=== PATIENT | female | born 1955 | race Caucasian/White ===

== ENCOUNTER → 2018-09-23 12:08 | Outpatient (CLI) | payer OTHER, SELFPAY ==
[2018-08-29 09:18] VITALS: BMI 20.3
--- NOTE | 2018-09-23 12:37 | EKG12_ITS ---
Test Reason : PREOP Blood Pressure : / mmHG Vent. Rate : 064 BPM Atrial Rate : 064 BPM P-R Int : 114 ms QRS Dur : 088 ms QT Int : 406 ms P-R-T Axes : 028 024 026 degrees QTc Int : 418 ms Normal sinus rhythm Normal ECG Confirmed by RALPH FOSTER MD ([id number]), school photograph editor LORE MATTSON ([id number]) on 09/24/2018 1:46:23 PM Referred By: Colton Ashley Confirmed By:RALPH FOSTER MD
[2018-09-23 13:12] LABS: Hematocrit 39.2 % (37-47); Hemoglobin 12.7 g/dl (12.0-15.0); Mean Corp Hgb Conc 32.4 g/gl (32-36); Mean Corpuscular Hgb 31.1 pg (27.0-32.0); Mean Corpuscular Volume 95.8 fL (81-99); Mean Platelet Vol. 11.8 fl (6.2-12.0); Platelet Count 219 K/mm3 (150-450); RBC Distribution Width CV 12.8 % (11.6-14.6); RBC Distribution Width SD 44.3 fl (35.1-43.9); Red Blood Count 4.09 M/mm3 (4.2-5.4); White Blood Count 5.9 K/mm3 (4.4-11.0)
[2018-09-23 13:13] LABS: Scan Indicated on CBC? Y/N NO
[2018-09-23 13:30] LABS: Anion Gap 4 (5-15); BUN 13 mg/dL (7-18); BUN/Creat Ratio 13.2 RATIO (10-20); Calcium,Total 9.4 mg/dL (8.5-10.1); Chloride 104 mmol/L (98-107); Creatinine, Serum 0.98 mg/dL (0.55-1.02); EST Glomerular Filtration Rate 61 mL/min (>60); Est Glom Filt Rate - Afr Amer 73 mL/min (>60); Glucose 93 mg/dL (74-106); Sodium Level 137 mmol/L (136-145)
== END ==
PROVIDERS: Family Provider Internal Medicine; PCP Internal Medicine; Referring Provider Orthopaedic Surgery; Visit Provider Orthopaedic Surgery
DX: Z01.810 Encounter for preprocedural cardiovascular examination (principal); Z01.818 Encounter for other preprocedural examination
CPT/HCPCS: 36415; 80048; 85027; 93005

== ENCOUNTER 2021-10-21 18:50 | Emergency (ER) | payer MEDICARE, OTHER, SELFPAY ==
[2021-10-21 18:51] VITALS: BP 131/100; PULSE 96; RESP 15; TEMP 37; O2SAT 98; BMI 20.5
--- NOTE | 2021-10-21 20:10 | EDS_ITS ---
HPI History of Present Illness Chief Complaint: Laceration Detail of Chief Complaint: Laceration palmar aspect right long finger. Informant: patient Occured/Mechanism Mechanism/Context: Yes injury Onset/Context/Timing Onset: Today and Hours Context: Sudden Onset Timing: Continuous Current Severity: Mild Maximum Severity: Mild Associated Symptoms Associated Symptoms: Negative for Parasthesia, Weakness and Loss of Funtion Narrative Narrative: 66-year-old female [id number]. Was putting stuff away and pulling stuff down from the shelf when a blade from a fast food services manager fell and cut her right hand palmar aspect at the MCP of the right long finger. This occurred within the last hour. She is unsure of her last tetanus and will be updated. Denies any other injuries. Tetanus Immunization: Unknown Prior similar symptoms: No Recent Illness/Hospitalization: No PFSH PFSH Medical History Knee pain Shoulder pain Allergy/AdvReac Type Severity Reaction Status Date / Time ibuprofen AdvReac Other Verified 10/21/21 18:50 SURGICAL TAPE Allergy Other Uncoded 10/21/21 18:50 Family History Other CVA (cerebral vascular accident) Cancer Surgical History History of hernia repair History of kidney donation History of tonsillectomy and adenoidectomy Social History Smoking Status: Never smoker alcohol intake: current ROS ROS ED ROS Narrative Denies recent illness. Review of Systems ROS Unobtainable: Denies due to encephalopathy Constitutional Constitutional ED: Denies fever(s) Eyes Eyes: Denies change in vision ENT ENT ED: Denies ear pain Cardiovascular Cardiovascular: Denies chest pain Respiratory/Chest Respiratory/Chest: Denies cough or dyspnea Gastrointestinal Gastrointestinal: Denies abdominal pain, nausea or vomiting Genitourinary Genitourinary ED: Denies dysuria Musculoskeletal Musculoskeletal: Denies myalgias Integumentary Denies rash Neurologic Neurologic: Denies headache(s) Psychiatric Psychiatric: Denies depression Endocrine Endocrinology: Denies polyuria Hematologic/Lymphatic Hematologic/Lymphatic: Denies easy bruising Allergic/Immunologic Allergic/Immunologic ED: Denies urticaria EXAM Physical Exam Narrative Exam Narrative: Progress 2 cm laceration right hand palmar aspect and MCP. Full flexion-extension. Normal touch sensation. No active bleeding. No signs of infection or foreign body. Const Vital Signs: 10/21/21 18:51 Temperature 98.6 F Temperature Source Temporal Pulse Rate 96 Respiratory Rate 15 Blood Pressure 131/100 H Blood Pressure Mean 110 Pulse Ox 98 Oxygen Delivery Method Room Air Positive well nourished and well developed; Negative for obese, cachectic, contractures or unkempt General Appearance ED: well developed and NAD; Negative for unkempt, cachectic, contractures, cyanotic or diaphoretic Nutritional Appearance: Negative for cachectic or obese HEENT Reports moist mucous membranes normocephalic and atraumatic; Negative for trauma or tenderness Eyes PERRL and EOMs intact bilaterally Neck full ROM and supple General: Negative for tenderness Chest Wall inspection of chest normal and palpation of chest normal Resp normal respiratory effort and clear to auscultation bilaterally Auscultation: Negative for rales or rhonchi Cardio regular rate, regular rhythm, S1 normal heart sound, S2 normal heart sound and no murmurs GI non-tender, non-distended and no masses Auscultation: normoactive bowel sounds Palpation: soft; Negative for tender or guarding Extremity normal to inspection and full ROM Extremity Narrative: Laceration palmar aspect right long finger at the MCP of 2 cm. No bleeding. No foreign body. No infection. Full range of motion. Neurovascular intact. General Extremety ED: Negative for edema General Extremity: Negative for edema Neuro oriented x3 and moves all extremities Sensorium / Orientation: alert, oriented to person, oriented to place and oriented to time Motor Exam: strength 5/5 throughout Psych mental status grossly normal Appearance: Negative for unkempt Mood & Affect: Negative for depressed Skin Lesions: no lesions Rashes: no rashes Trauma: laceration; Negative for no lacerations or abrasions MDM MDM MDM Narrative Medical decision making narrative: Right long finger laceration. Local anesthetized with lidocaine. Cleaned with Shur-Clens. Washed with saline. Explored. Closed using 3 simple interrupted 5-0 Ethilon sutures. Proper hemostasis wound closure obtained. Patient tolerated procedure well. Was instructed on wound care and suture removal. Procedures Lacerations Right hand laceration: Length: 0.79 in Depth: Skin Shape: Linear Prep: Sterile Conditions and Shure-Clens Laceration repair: Irrigated, Lidocaine, Local and Skin sutures Number of Sutures/[place]: 3 Suture Information: Ethilon and 5-0 Discharge Plan Triage Chief Complaint: Laceration ED Provider: Alexis Mcdonald Dx/Rx/DC Orders Clinical Impression: Hand laceration Instructions: ED Laceration, Hand: All Closures Primary Care Provider: Sandra Kaur Referrals: Sandra Kaur MD [Primary Care Provider] - 10 Day for suture removal Activity Restrictions/Additional Instructions: Keep area clean and dry. He can get wet but do not soak in water. Dry thoroughly. Apply antibiotic ointment daily. Suture removal in 7 to 10 days and I would go 10 days. Watch for any signs of infection of seen return. Disposition Disposition: Home, Self Care
[2021-10-21] MEDS: Diphth,Pertuss(Acell),Tet Vac 0.5 ML Vial IM (20:14)
[2021-10-21] MEDS: Lidocaine 1% (20 ml mdv) 20 ML Vial 5 ML INFILT (20:15)
--- NOTE | 2021-10-23 15:26 | CASEMGMT ---
YASH FISHMAN ED visit f/u call: ED visit: 10/21/21 Complaint: Laceration Call placed to pt's #. No answer. Non-descript VM left to return call, if she wishes. YASH FISHMAN phone number provided. Giancarlo CAMARAN YASH CM
== END 2021-10-21 21:05 | disposition home or self-care (01) ==
PROVIDERS: Emergency Provider Emergency Medicine; PCP Internal Medicine; Visit Provider Emergency Medicine
DX: S61.212A Laceration without foreign body of right middle finger without damage to nail, initial encounter (principal); W22.8XXA Striking against or struck by other objects, initial encounter; W26.8XXA Contact with other sharp object(s), not elsewhere classified, initial encounter; Z23 Encounter for immunization
CPT/HCPCS: 12001; 90471; 99283

== ENCOUNTER 2025-05-04 18:07 | Emergency (ER) | payer MEDICARE, SELFPAY ==
[2025-05-04 18:07] VITALS: BP 133/92; PULSE 99; RESP 16; TEMP 36.6; O2SAT 100; BMI 22.8
[2025-05-04 18:21] VITALS: BP 128/80; PULSE 80; RESP 16; TEMP 36.8; O2SAT 98
--- NOTE | 2025-05-04 18:21 | EDS_ITS ---
HPI HPI - Female History of Present Illness Chief Complaint: Complaint Narrative Narrative: 70-year-old female presents with her daughter because of gross hematuria that she experienced this afternoon. She relates history that she was out shopping with her friends, she had a glass of wine with lunch, and then went to the [employer]. She had the urge that she had to urinate, and went. At that time she did not check whether or not she was having hematuria, however when she came home this afternoon, she urinated and even when she wiped had bright red blood/gross hematuria. She denies any back pain, she does not take any blood thinners, in fact she states she takes no medications whatsoever. No recent fevers or chills, no pain with urination. She was concerned however because remotely she donated one of her kidneys remotely. She believes it was the left kidney that she had donated. No exacerbating or alleviating factors. She went to urgent care, and on the macro analysis there are 40 ketones and positive leukocytes but no nitrites. They sent her here for evaluation of her hematuria. [facility] Medical History Shoulder pain Knee pain Home Medications Medication Instructions Recorded Last Taken Type cephalexin 500 mg capsule 500 mg PO Q12 #14 CAPSULES 1 07/04/24 Unknown Rx Allergy/AdvReac Type Severity Reaction Status Date / Time adhesive tape AdvReac Other Verified 05/04/25 18:11 ibuprofen AdvReac Other Verified 05/04/25 18:11 Family History Other CVA (cerebral vascular accident) Cancer Surgical History History of hernia repair History of tonsillectomy and adenoidectomy History of kidney donation Social History Smoking Status: Never smoker alcohol intake: current ROS ROS ED ROS Narrative Review of systems positive for gross hematuria, no fevers or chills, no nausea or vomiting, denies other bleeding diathesis. No back pain. No exacerbating or alleviating factors. EXAM Physical Exam Narrative Exam Narrative: Afebrile. Vital signs noted. Nontoxic-appearing. Cardiovascular examination feels a regular rate and rhythm. Lungs are clear to auscultation bilaterally. Abdomen is soft and nontender without guarding or rebound. Positive bowel sounds. No CVA tenderness to percussion bilaterally. Neurological examination nonfocal, nonlateralizing. Ambulatory from restroom and able to transfer independently to cot. No skin pallor, no subconjunctival pallor. No central cyanosis. Const Vital Signs: 05/04/25 18:07 05/04/25 18:21 05/04/25 19:10 Temperature 97.9 F 98.3 F 98.2 F Temperature Source Temporal Oral Oral Pulse Rate 99 80 81 Respiratory Rate 16 16 16 Blood Pressure 133/92 H 128/80 H 128/89 H Blood Pressure Mean 105 96 102 Pulse Ox 100 98 97 Oxygen Delivery Method Room Air Room Air MDM MDM MDM Narrative Medical decision making narrative: Differential diagnosis includes but not limited to hemorrhagic cystitis versus urinary tract infection with hematuria. Also in the differential would be bladder mass versus polyp for painless hematuria. I had discussion with the patient and her daughter. Prior to obtaining any lab work or imaging, she would like to have urinalysis performed first. I reviewed her urinalysis and her macro analysis shows 5 ketones with negative nitrites but 100 leukocyte esterase. Microanalysis shows greater than 100 RBCs with greater than 100 WBCs and 1+ bacteria. At this point in time, I do feel that she probably has more of a cystitis with hematuria. She was given her first dose of cephalexin here and prescription to take twice a day for the next 7 days. Her urine culture is currently pending. She should follow-up with her primary care provider in 3 to 5 days. Return instructions to the emergency department were reviewed. Disposition is discharged home in stable condition. History & Record Review Discussion w/independent historian: Patient and Family Additional record(s) reviewed:: Prior ED visit (Last visit 2021 to ED) Lab Data Attestation: I reviewed the patient's lab results. Labs: Laboratory Results - last 24 hr 05/04/25 18:25 Urine Color Red Urine Clarity Turbid Urine pH 5.0 Ur Specific [place] 1.020 Urine Protein 500 H Urine Glucose (UA) Normal Urine Ketones 5 H Urine Occult Blood 150 H Urine Nitrite Negative Urine Bilirubin Negative Urine Urobilinogen Normal Ur Leukocyte Esterase 100 H Urine RBC > 100 SEEN Urine WBC >100 SEEN Ur Squamous Epith Cells 0-5 SEEN Urine Bacteria 1+ Urine Mucus 0 SEEN Discharge Plan Triage Chief Complaint: Complaint ED Provider: Avi Dorman Dx/Rx/DC Orders Clinical Impression: Cystitis, Hematuria Instructions: ED Hematuria, ED Cystitis Female Adult Prescriptions: New cephalexin 500 mg capsule 500 mg PO Q12 Qty: 14 0RF Primary Care Provider: Sandra Kaur Referrals: Sandra Kaur MD [Primary Care Provider, Internal Medicine] - 3-5 Days Activity Restrictions/Additional Instructions: Antibiotics as directed. Return with increased bleeding, fever, pain, new or worsening symptoms. Your urine has been sent for culture. You will be contacted if you need a change in antibiotics. Print Language: Hungarian Disposition Disposition: Home, Self Care
[2025-05-04 18:43] LABS: Mucous, Urine 0 SEEN /hpf (<or=2+)
--- OUTSIDE RECORDS SUMMARY | 2025-05-04 19:07 | XMS RPT_ITS | CCD ---
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.Tiara MISTRY Unavailable Donna Laughlin PA-C Unavailable [phone] JUJU REILLY Attending Unavailable GANTA, EVITA Primary Care Unavailable GANTA, EVITA Referring Unavailable GANTA, EVITA Primary Care Unavailable GANTA, EVITA Attending Unavailable GANTA, EVITA Primary Care Unavailable GANTA, EVITA Referring Unavailable GANTA, EVITA Primary Care Unavailable GANTA, EVITA Attending Unavailable TIARA RICH Referring Unavailable GANTA, EVITA Primary Care Unavailable Allergies Allergy Classification Reported Allergen(s) Allergy Type Date of Onset Reaction(s) Facility (20 sources) Ibuprofen; Translations: [IBUPROFEN] Drug Allergy 6 Contraindicatio n-Medical Surgical [facility] (1 source) Surgical adhesive tape Allergy to substance 2 Other [facility] Work Phone: Medications Current Medications Medication Drug Class(es) Dates Sig (Normalized) Sig (Original) cholecalciferol, vitamin D3, (VITAMIN D3 ORAL) (12 sources) cholecalciferol, vitamin D3, (VITAMIN D3 ORAL) Take by mouth. Active cholecalciferol, vitamin D3, (VITAMIN D3 ORAL) Take by mouth. 0 Active Comment on above: Take by mouth. Vitamin B Complex (12 sources) vitamin B comple x (B COMPLEX ORAL) Take by mouth. Active vitamin B comple x (B COMPLEX ORAL) Take by mouth. 0 Active Comment on above: Take by mouth. Completed/Discontinued Medications Medication Drug Class(es) Dates Sig (Normalized) Sig (Original) acetaminophen 325 mg / oxyCODONE hydrochloride 5 mg oral tablet (1 source) Opioid Agonist Start: 07-23-2015 End: 08-29-2018 take 1 tablet by mouth every four hours as needed Oxycodone-Acetamino phen Discontinued 1 - 2 TABLET PO EVERY 4 HOURS NEEDED July 23, 2015 1:58pm August 29, 2018 10:18am alendronic acid 70 mg oral tablet (4 sources) Bisphosphonate Start: 06-13-2024 End: 01-26-2025 take 1 tablet by mouth every week in the morning alendronate (FOSAMAX) 70 mg tablet Take 1 tablet by mouth one time a week. in the AM with glass of water on empty stomach. Do not take anything else by mouth or lie down for 30 min 4 tablet 5 06/13/2024 01/26/2025 Discontinued Ascorbic Acid (4 sources) Vitamin C End: 01-26-2025 take 1 capsule by mouth once daily ascorbic acid (VITAMIN C ORAL) Take 1 capsule by mouth once daily. 01/26/2025 Discontinued take 1 capsule by mouth once vinnie ly ascorbic acid (VITAMIN C ORAL) Take 1 capsule by mouth once daily. Active atorvastatin 20 mg oral tablet (12 sources) HMG-CoA Reductase Inhibitor Start: 01-11-2021 End: 06-01-2023 take 1 tablet by mouth once daily at bedtime for hyperlipidemia atorvastatin (LIPITOR) 20 mg tablet Take 1 tablet by mouth daily at bedtime. For cholesterol. 30 tablet 5 01/11/2021 06/01/2023 Discontinued Comment on above: Take 1 tablet by alin th daily at bedtime. For cholesterol. hydrocortisone 25 mg/ml topical cream (5 sources) Corticosteroid Start: 01-14-2024 End: 06-13-2024 hydrocortisone 2.5 % cream 01/14/2024 06/13/2024 Discontinued (Other) Problems Active Problems Problem Classification Problem Date Documented Da te Episodic/Chronic Disorders of lipid metabolism (5 sources) Hyperlipidemia; Translations: [Other hyperlipidemia] Onset: 06-13-2024 Chronic Immunizations and screening for infectious disease (3 sources) Needs influenza immunization; Translations: [Encounter for immunization] Onset: 01-26-2025 04-15-2023 Episodic Nonmalignant breast conditions (1 source) Mammographic breast tissue appearance; Translations: [Dense breast tissue on mammogram, unspecified type] 03-31-2024 Episodic Nutritional deficiencies (2 sources) Vitamin D deficiency; Translations: [Vitamin D deficiency, unspecified] Onset: 06-13-2024 06-13-2024 Chronic Open wounds of extremities (2 sources) Laceration of hand; Translations: [Laceration without foreign body of unspecified hand, initial encounter] Episodic Osteoporosis (7 sources) Osteoporosis; Translations: [Age-related osteoporosis without current pathological fracture] Onset: 01-26-2025 06-01-2023 Chronic Other connective tissue disease (1 source) Dupuytren's contracture; Translations: [Palmar fascial fibromatosis [Dupuytren]] 01-26-2025 Episodic Other screening for suspected conditions (not mental disorders or infectious disease) (19 sources) Patient encounter status; Translations: [Encounter for screening mammogram for malignant neoplasm of breast] Onset: 02-09-2018 Resolved: 01-10-2020 Episodic Other skin disorders (1 source) Skin lesion; Translations: [Disorder of the skin and subcutaneous tissue, unspecified] 04-18-2024 Episodic Screening and history of mental health and substance abuse codes (2 sources) Encounter for screening for depression; Translations: [Encounter for screening examination for other mental health and behavioral disorders] Onset: 01-26-2025 Episodic Unclassified (1 source) Patient encounter status 01-26-2025 Past or Other Problems Problem Classification Problem Date Documented Da te Episodic/Chronic Diabetes mellitus without complication (3 sources) Prediabetes; Translations: [Prediabetes] Onset: 06-13-2024 06-13-2024 Episodic Fluid and electrolyte disorders (9 sources) Dehydration; Translations: [Dehydration] Onset: 08-13-2016 Resolved: 01-10-2020 01-10-2020 Episodic Nutritional deficiencies (2 sources) Cobalamin deficiency; Translations: [Deficiency of other specified B group vitamins] Onset: 06-13-2024 06-13-2024 Episodic Other bone disease and musculoskeletal deformities (20 sources) Osteopenia; Translations: [Other specified disorders of bone density and structure, unspecified site] Onset: 01-25-2016 08-14-2016 Episodic Other connective tissue disease (20 sources) Ganglion cyst of left hand; Translations: [Ganglion, left hand] Onset: 09-21-2017 10-01-2017 Episodic Other gastrointestinal disorders (9 sources) Diarrhea of presumed infectious origin; Translations: [Diarrhea, unspecified] Onset: 08-13-2016 Resolved: 01-10-2020 01-10-2020 Episodic Other skin disorders (20 sources) Mass of subcutaneous tissue; Translations: [Localized swelling, mass and lump, unspecified] Onset: 01-18-2016 01-18-2016 Episodic Residual codes; unclassified (20 sources) Kidney donor; Translations: [Kidney donors] Onset: 01-25-2016 01-25-2016 Episodic Syncope (9 sources) Syncope; Translations: [Syncope and collapse] Onset: 08-13-2016 Resolved: 01-10-2020 01-10-2020 Episodic Results Test Name Value Interpretation Reference Range Facility MICHELLE SCREENING W TOMOon 04-03 MICHELLE SCREENING W TANIKA * * *Final Report* * * DATE OF EXAM: Apr 03 2025 8:05AM [facility] 0582 - MICHELLE SCREENING W TANIKA / PROCEDURE REASON: Encounter for screening mammogram for malignant neoplasm of breast * * * * Physician Interpretation * * * * RESULT: [place] [address] #[id number] - MICHELLE SCREENING W TANIKA HISTORY: 70 year-old patient presents for screening. Patient is asymptomatic in both breasts. Patient states no personal history of breast cancer. COMPARISON STUDIES: The present examination has been compared to prior imaging studies dated 01/02/2021 (mammogram), 02/17/2022 (mammogram), 03/27/2023 (mammogram) and 03/28/2024 (mammogram). MAMMOGRAM TECHNIQUE: The study was acquired using full field digital technology and interpreted from soft copy. Digital Breast Tomosynthesis (DBT) images were obtained and used to assist in the interpretation of this examination. MAMMOGRAM FINDINGS: There are scattered areas of fibroglandular density. No suspicious masses, calcifications or other abnormalities are seen in either breast. There are no significant interval changes. IMPRESSION: There is no mammographic evidence of malignancy in either breast. Routine screening mammogram is recommended. Annual mammogram will be due in 1 year. BI-RADS Category 1: Negative RISK: Based on the Tyrer-Cuzick (TC) risk assessment model, this patient has a 2.6% lifetime risk of developing breast cancer, meaning they are at average risk for developing breast cancer. However, this is only an estimate based on available history provided on the patient's questionnaire. We encourage all patients to talk with their providers about these results, further recommendations for managing breast health, and appropriate supplemental screening options if the patient has dense breast tissue. Interpreting Radiologist: Jenae Wu M.D. Electronically signed on: 04/03/2025 Lab Pack Chemist: RENETTA Transcribe Date/Time: Apr 03 2025 7:57A Dictated by: JENAE WU MD This examination was interpreted and the report reviewed and electronically signed by: JENAE WU MD on Apr 03 2025 11:22AM EST [id number] Normal [facility] CNOVon 01-26-2025 CNOV Office Visit (INTMWS ) FRANCISCA COOPER ([id number]) 1955 F Date Time Provider Department 01/26/25 8:00 AM EVITA NOVAK INTMWS During your visit today, we recorded the following information about you: Pulse Respiration Blood pressure Weight 87/minute 16/minute 111/72 69 kg Evita Novak MD 01/26/2025 8:52 AM Signed We discussed your Dupuytren's contracture: - You previously received a Zytrin injection, which temporarily straightened your finger, but the contracture has returned despite nightly splint use. - You mentioned a [facility] doctor offering low-dose radiation treatment for Dupuytren's. If you decide to pursue this, let me know, and I can provide a referral. 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 We discussed your osteoporosis: - You are due for a bone density test, which is scheduled for April 27. - Continue taking Vitamin D daily as prescribed. This is beneficial for bone health and may also have protective effects against dementia. - Aim to consume 1,200 mg of calcium daily through food sources (e.g., yogurt, salmon, etc.). I will provide a handout with calcium-rich food options. If your dietary intake is insufficient, you may consider calcium supplements such as calcium citrate or calcium carbonate (e.g., Caltrate petites or chews). - You have chosen not to start Fosamax at this time. Other options, such as Prolia injections or Reclast IV, are available if needed in the future. We will reassess after your bone density results in May. We discussed your weight and activity level: - Your current weight is 152 lbs, and your BMI is within a healthy range. 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 - Continue your regular exercise routine, including swimming, walking, and occasional pickleball. Be cautious with pickleball to avoid knee injuries. - Protect your knee by moderating high-impact activities. We discussed your vitamin regimen: - Continue taking Vitamin D and Vitamin B complex as previously recommended. - You do not need to add Vitamin C unless desired. We discussed your upcoming preventive care: - You are due for a mammogram this year. You can schedule this for March, and I recommend including tomography. - You are also due for cervical cancer screening (Pap smear) this year. This will be addressed during your next gynecology visit with Dr. Reilly. - I have added a hepatitis C screening to your labs for May, as this has not been documented previously. We discussed your vaccinations: - You received the original shingles vaccine but did not complete the Shingrix series. If you decide to pursue this, let me know. Additional notes: - Your blood pressure is excellent. - Continue your current lifestyle, which includes regular exercise, social engagement, and a healthy diet. These are all contributing positively to your overall health and well-being. Follow-up: - Your next appointment is in May. Please complete your labs a couple of weeks prior to this visit. - Let me know if you have any new concerns or if you decide to pursue additional treatments for Dupuytren's contracture or osteoporosis. Evita Novak MD 01/26/2025 12:31 PM Signed Reason for Visit Follow up HPI Francisca Cooper is a 70-year-old female with a history of Dupuytren's contracture and osteoporosis, presenting for follow-up. 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 She consulted Dr. Up at [facility], who referred her to Dr. Herrera at [facility]. On 09/13, Dr. Herrera administered a Zytrin injection, which temporarily straightened the finger. Despite wearing a splint nightly until April, the contracture has recurred. She is considering low-dose radiation therapy at [facility] and may request a referral in 6-12 months. She denies any issues with her wedding rings due to weight gain, attributing difficulty wearing them to Dupuytren's contracture and aging. Francisca also has a history of osteoporosis and was advised to take Fosamax but declined based on a friend's recommendation. She has scheduled a bone density scan for 04/27 and inquires if she can wait until May for labs. She is currently taking vitamin D and B complex and asks if she should resume vitamin C supplementation. She reports a 10 lb weight gain over the past year, currently weighing 150 lbs, and expresses a desire to lose weight. She attributes the weight gain to decreased physical activity, particularly pickleball, to protect her knee. She continues to walk, swim 35-40 laps daily, and ride a stationary bike. She denies increased fatigue but no (more content not included)... [facility] FRANCISCA COOPER ([id number]) 1955 F Date Time Provider Department 01/20/25 EVITA NOVAK During your visit today, we recorded the following information about you: Kristen Haque RN 01/20/2025 11:57 AM Signed Pt called and reports she has an appointment on 01/27/25. She though this appointment was scheduled because she was going to start taking Fosamax. Pt states she never started taking this medication. She wanted to know if she still needed this appointment or if she could cancel it and just keep her yearly appointment. The Pt want to know if provider could put in lab orders before her appointment so she could discuss them at her appointment. Then Pt states she is supposed to have her bone density scan done this year and was asking about having that put in. Please call Pt back and let her know. YASH Joseph Chitra, MD 01/20/2025 12:51 PM Signed Please let her know that labs are ordered. So has BMD. Regards, Velma Jesus MD, MA 01/20/2025 1:00 PM Signed Patient notified, Please assist in scheduling bone density. Kristen Haque RN 01/23/2025 12:50 PM Signed Bone density scheduled. Kristen Haque RN Allergies As of Date: 01/20/2025 Noted Allergy Reaction IBUPROFEN 02/06/2016 15 - Contraindication-Medi ori Burris* Date Reviewed: 06/13/2024 Reviewed by: Zo Chavez MA - Fully Assessed Reason for Visit: Patient Question [1477] Appointment [186] Lab Orders [1688] Primary Visit Diagnosis:Prediabetes [R73.03] Other Visit Diagnoses:Hyperlipide kvng, mixed [E78.2] Osteoporosis without current pathological fracture, unspecified osteoporosis type [M81.0] Order(s):COMPREHENSIV E METABOLIC PANEL [SQCMP] Order #: [id number] FUTURE COMPLETE BLOOD COUNT AND DIFFERENTIAL [SQCBCDIF] Order #: [id number] FUTURE LIPID PANEL, FASTING [SQLIPB] Order #: [id number] FUTURE HEMOGLOBIN A1C [NTWPK3G] Order #: [id number] FUTURE VITAMIN D 25 HYDROXY [SQVITD] Order #: [id number] FUTURE DXA-AXIAL SKELETON [6464407] Order #: [id number] FUTURE BD DXA TRABECULAR BONE SCORE (TBS) [[id number]] Order #: [id number] FUTURE Prescriptions as of 01/23/2025 - ascorbic acid (VITAMIN C ORAL) Take 1 capsule by mouth once daily. - alendronate (FOSAMAX) 70 mg tablet Take 1 tablet by mouth one time a week. in the AM with glass of water on empty stomach. Do not take anything else by mouth or lie down for 30 min - cholecalciferol, vitamin D3, (VITAMIN D3 ORAL) Take by mouth. - vitamin B complex (B COMPLEX ORAL) Take by mouth. Problem List As Of Date 01/20/2025 Noted Resolved Subcutaneous mass [R22.9] 01/18/2016 Donor, kidney [Z52.4] 01/25/2016 Osteopenia [M85.80] 01/25/2016 Syncope [R55] 08/13/2016 01/10/2020 Diarrhea of presumed infectious origin [R19.7] 08/13/2016 01/10/2020 Dehydration [E86.0] 08/13/2016 01/10/2020 Ganglion, finger of left hand [M67.442] 09/21/2017 Encounter for screening for malignant neoplasm *02/09/2018 01/10/2020 Encounter Status:Closed by KRISTEN HAQUE on 01/23/25 Normal [facility] 25(OH)D3 [facility] 2023 25-hydroxyvitamin D3 [Mass/Vol] 27.9 ng/mL Low 31.0-80.0 [facility] Comment on above: Order Comment: Speci men Type: BLOOD SPECIMENOrdering Facility: [facility] Address: [address] [place] [address] [place] [address] Result Comment: Clas sification of 25 [place] Vitamin D status: Deficiency/Insufficiency: < or = 30 ng/ml. Sufficiency/Optimal Levels: 31-80 ng/mL Toxicity: > 100 ng/mL. Test performed by chemiluminescent immunoassay. Performed By: #### 1 989-3 ####[facility] LABCLIA [id number] [place] [address] [place] 25-hydroxyvitamin D3 [Mass/V ol]on 06-13-2024 Interpretation and review of laboratory results Abnormal [facility] The reference range interval was based on an analysis of samples from healthy adults and may not pertain to children from 0-18 years old. [facility] CBC W Auto Differential pane l (Bld)on 06-13-2024 Basophils (Bld) [#/Vol] 0.03 10*3/uL [facility] Basophils/100 WBC (Bld) 0.5 % [facility] Differential cell count method Nom (Bld) Auto [facility] Eosinophils (Bld) [#/Vol] 0.20 10*3/uL [facility] Eosinophils/100 WBC (Bld) 3.3 % [facility] Erythrocyte distribution width (RBC) [Ratio] 12.4 % 11.5 - 15.0 % [facility] Hematocrit (Bld) [Volume fraction] 40.9 % 36.0 - 46.0 % [facility] Hemoglobin (Bld) [Mass/Vol] 13.3 g/dL 11.5 - 15.5 g/dL [facility] Immature granulocytes (Bld) [#/Vol] [facility] Immature granulocytes/100 WBC (Bld) 0.2 % [facility] Lymphocytes (Bld) [#/Vol] 1.12 10*3/uL [facility] Lymphocytes/100 WBC (Bld) 18.5 % [facility] MCH (RBC) [Entitic mass] 32.3 pg 26.0 - 34.0 pg [facility] MCHC (RBC) [Mass/Vol] 32.5 g/dL 30.5 - 36.0 g/dL [facility] MCV (RBC) [Entitic vol] 99.3 fL 80.0 - 100.0 fL [facility] Monocytes (Bld) [#/Vol] 0.45 10*3/uL [facility] Monocytes/100 WBC (Bld) 7.4 % [facility] Neutrophils (Bld) [#/Vol] 4.25 10*3/uL [facility] Neutrophils/100 WBC (Bld) 70.1 % [facility] Nucleated RBC (Bld) [#/Vol] NINF [facility] Nucleated RBC/100 WBC (Bld) [Ratio] 0.0 % /100 WBC [facility] Platelet mean volume (Bld) [Entitic vol] 12.6 fL 9.0 - 12.7 fL [facility] Platelets (Bld) [#/Vol] 222 10*3/uL [facility] RBC (Bld) [#/Vol] 4.12 10*6/uL 3.90 - 5.2 0 m/uL [facility] WBC (Bld) [#/Vol] 6.06 10*3/uL [facility] Basophils (Bld) [#/Vol] 0.03 10*3/uL Normal <0.11 [facility] Comment on above: Order Comment: Speci men Type: BLOOD SPECIMENOrdering Facility: [facility] Address: [address] [place] [address] Performed By: #### 5 7021-8 ####[facility] LABCLIA [id number] [place] [address] [place] Basophils/100 WBC (Bld) 0.5 % Normal [facility] Comment on above: Order Comment: Speci men Type: BLOOD SPECIMENOrdering Facility: [facility] Address: [address] [place] [address] Performed By: #### 5 7021-8 ####[facility] LABCLIA [id number] [place] [address] [place] Differential cell count method Nom (Bld) Auto Normal [facility] Comment on above: Order Comment: Speci men Type: BLOOD SPECIMENOrdering Facility: [facility] Address: [address] [place] [address] Performed By: #### 5 7021-8 ####[facility] LABCLIA [id number] [place] [address] [place] Eosinophils (Bld) [#/Vol] 0.20 10*3/uL Normal <0.46 [facility] Comment on above: Order Comment: Speci men Type: BLOOD SPECIMENOrdering Facility: [facility] Address: [address] [place] [address] Performed By: #### 5 7021-8 ####[facility] LABCLIA [id number] [place] [address] [place] Eosinophils/100 WBC (Bld) 3.3 % Normal [facility] Comment on above: Order Comment: Speci men Type: BLOOD SPECIMENOrdering Facility: [facility] Address: [address] [place] [address] Performed By: #### 5 7021-8 ####[facility] LABCLIA [id number] [place] [address] [place] Erythrocyte distribution width (RBC) [Ratio] 12.4 % Normal 11.5-15.0 [facility] Comment on above: Order Comment: Speci men Type: BLOOD SPECIMENOrdering Facility: [facility] Address: [address] [place] [address] Performed By: #### 5 7021-8 ####[facility] LABCLIA [id number] [place] [address] [place] Hematocrit (Bld) [Volume fraction] 40.9 % Normal 36.0-46.0 [facility] Comment on above: Order Comment: Speci men Type: BLOOD SPECIMENOrdering Facility: [facility] Address: [address] [place] [address] Performed By: #### 5 7021-8 ####[facility] LABCLIA [id number] [place] [address] [place] Hemoglobin (Bld) [Mass/Vol] 13.3 g/dL Normal 11.5-15.5 [facility] Comment on above: Order Comment: Speci men Type: BLOOD SPECIMENOrdering Facility: [facility] Address: [address] [place] [address] Performed By: #### 5 7021-8 ####[facility] LABCLIA [id number] [place] [address] [place] Immature granulocytes (Bld) [#/Vol] 10*3/uL Normal <0.10 [facility] Comment on above: Order Comment: Speci men Type: BLOOD SPECIMENOrdering Facility: [facility] Address: [address] [place] [address] Performed By: #### 5 7021-8 ####[facility] LABCLIA [id number] [place] [address] [place] Immature granulocytes/100 WBC (Bld) 0.2 % Normal [facility] Comment on above: Order Comment: Speci men Type: BLOOD SPECIMENOrdering Facility: [facility] Address: [address] [place] [address] Performed By: #### 5 7021-8 ####[facility] LABCLIA [id number] [place] [address] [place] Lymphocytes (Bld) [#/Vol] 1.12 10*3/uL Normal 1.00-4.00 [facility] Comment on above: Order Comment: Speci men Type: BLOOD SPECIMENOrdering Facility: [facility] Address: [address] [place] [address] Performed By: #### 5 7021-8 ####[facility] LABCLIA [id number] [place] [address] [place] Lymphocytes/100 WBC (Bld) 18.5 % Normal [facility] Comment on above: Order Comment: Speci men Type: BLOOD SPECIMENOrdering Facility: [facility] Address: [address] [place] [address] Performed By: #### 5 7021-8 ####[facility] LABCLIA [id number] [place] [address] [place] MCH (RBC) [Entitic mass] 32.3 pg Normal 26.0-34.0 [facility] Comment on above: Order Comment: Speci men Type: BLOOD SPECIMENOrdering Facility: [facility] Address: [address] [place] [address] Performed By: #### 5 7021-8 ####[facility] LABCLIA [id number] [place] [address] [place] MCHC (RBC) [Mass/Vol] 32.5 g/dL Normal 30.5-36.0 [facility] Comment on above: Order Comment: Speci men Type: BLOOD SPECIMENOrdering Facility: [facility] Address: [address] [place] [address] Performed By: #### 5 7021-8 ####[facility] LABCLIA [id number] [place] [address] [place] MCV (RBC) [Entitic vol] 99.3 fL Normal 80.0-100.0 [facility] Comment on above: Order Comment: Speci men Type: BLOOD SPECIMENOrdering Facility: [facility] Address: [address] [place] [address] Performed By: #### 5 7021-8 ####[facility] LABCLIA [id number] [place] [address] [place] Monocytes (Bld) [#/Vol] 0.45 10*3/uL Normal <0.87 [facility] Comment on above: Order Comment: Speci men Type: BLOOD SPECIMENOrdering Facility: [facility] Address: [address] [place] [address] Performed By: #### 5 7021-8 ####[facility] LABCLIA [id number] [place] [address] [place] Monocytes/100 WBC (Bld) 7.4 % Normal [facility] Comment on above: Order Comment: Speci men Type: BLOOD SPECIMENOrdering Facility: [facility] Address: [address] [place] [address] Performed By: #### 5 7021-8 ####[facility] LABCLIA [id number] [place] [address] [place] Neutrophils (Bld) [#/Vol] 4.25 10*3/uL Normal 1.45-7.50 [facility] Comment on above: Order Comment: Speci men Type: BLOOD SPECIMENOrdering Facility: [facility] Address: [address] [place] [address] Performed By: #### 5 7021-8 ####[facility] LABCLIA [id number] [place] [address] [place] Neutrophils/100 WBC (Bld) 70.1 % Normal [facility] Comment on above: Order Comment: Speci men Type: BLOOD SPECIMENOrdering Facility: [facility] Address: [address] [place] [address] Performed By: #### 5 7021-8 ####[facility] LABCLIA [id number] [place] [address] [place] Nucleated RBC (Bld) [#/Vol] 10*3/uL Normal <0.01 [facility] Comment on above: Order Comment: Speci men Type: BLOOD SPECIMENOrdering Facility: [facility] Address: [address] [place] [address] Performed By: #### 5 7021-8 ####[facility] LABCLIA [id number] [place] [address] [place] Nucleated RBC/100 WBC (Bld) [Ratio] 0.0 /100 WBC Normal [facility] Comment on above: Order Comment: Speci men Type: BLOOD SPECIMENOrdering Facility: [facility] Address: [address] [place] [address] Performed By: #### 5 7021-8 ####[facility] LABCLIA [id number] [place] [address] [place] Platelet mean volume (Bld) [Entitic vol] 12.6 fL Normal 9.0-12.7 [facility] Comment on above: Order Comment: Speci men Type: BLOOD SPECIMENOrdering Facility: [facility] Address: [address] [place] [address] Performed By: #### 5 7021-8 ####[facility] LABIA [id number] [place] [address] [place] Platelets (Bld) [#/Vol] 222 10*3/uL Normal 150-400 [facility] Comment on above: Order Comment: Speci men Type: BLOOD SPECIMENOrdering Facility: [facility] Address: [address] [place] [address] Performed By: #### 5 7021-8 ####[facility] LABIA [id number] [place] [address] [place] RBC (Bld) [#/Vol] 4.12 10*6/uL Normal 3.90-5.20 [facility] Comment on above: Order Comment: Speci men Type: BLOOD SPECIMENOrdering Facility: [facility] Address: [address] [place] [address] Performed By: #### 5 7021-8 ####[facility] LABIA [id number] [place] [address] [place] WBC (Bld) [#/Vol] 6.06 10*3/uL Normal 3.70-11.00 [facility] Comment on above: Order Comment: Speci men Type: BLOOD SPECIMENOrdering Facility: [facility] Address: [address] [place] [address] Performed By: #### 5 7021-8 ####[facility] LABIA [id number] [place] [address] [place] CNOVon 06-13-2024 CNOV Office Visit (INTMWS ) FRANCISCA COOPER ([id number]) 1955 F Date Time Provider Department 06/13/24 9:00 AM EVITA NOVAK During your visit today, we recorded the following information about you: Pulse Respiration Blood pressure Weight 78/minute 16/minute 108/70 68.9 kg Evita Novak MD 06/13/2024 3:29 PM Signed Francisca Cooper is a 69 year old female here for a Medicare wellness visit. Medicare Health Risk Assessment General Health Excellent Exercise: Minutes/Day 40 min Exercise: Days/Week 7 days Alcohol: Daily Use 4 or more times a week Alcohol: Drinks/Day 1 or 2 Alcohol: 6 or more drinks Never Feel off balance No Concerns: Teeth/Dentures No Concerns: Sexual function No Troubled by feelings None of the above Frequency: Eating healthy diet Nearly every day ADLs requiring help None of the above Safety precautions in home/vehicle Yes Smoke, vape, chews tobacco No Difficulty hearing Yes, I wear a hearing aid Difficulty seeing No Current Providers Specialists: I have reviewed specialist-related care of the patient in the medical record. Medical/Family history review Reviewed and updated problem list, medical/surgical/fami ly/social history, medications, and allergies. Opioid use review Opioid Medications (last 90 days) No data to display Anxiety/Depression screening PHQ-9 Score: 0. SADAF-7 Score: 0. Recommendation: no further intervention at this time Cognitive screening Mini Cog Score: 5 Cognitive screening reviewed and No further action needed (score 3-5). Functional Observation Was the patient's Timed Up AND Go test unsteady or >= 12 seconds? No Advance Care Planning Surrogate decision maker and/or advance care plan documented Measurements BP 108/70 Pulse 78 Resp 16 Wt 68.9 kg (152 lb) BMI 22.94 kg/m? Vision Screening: Follows with optometry/ophthalmolo gy Assessment/Plan Medicare annual wellness visit, subsequent (Z00.00) - Counseled on healthy diet and regular exercise - Fall avoidance information provided - Personalized prevention plan provided Reason for Visit Patient presents with: Medicare Wellness Exam Francisca Cooper is a 69 year old female who presents here today for Above Complaints.. Health Maintenance Depression Screening Anxiety Screening Hepatitis C Screening Shingrix Vaccine(2 of 3) Advance Directive Discussion HPI Has osteoporosis, in the left hip. She took actonel at one point. She was given that in her 40's. She went into menopause. She is wiling to take fosamax , exercise and take enough of calcium. She has been a little tired and fatigued recently and would like to get investigated. No problem-specific Assessment AND Plan notes found for this encounter. PAST MEDICAL HISTORY Diagnosis Date Donor, kidney Osteopenia PAST SURGICAL HISTORY Procedure Laterality Date EXC LESION TDN SHTH/JT CAPSL HAND/FNGR Left 10/01/2017 Left thumb excision of digital mucous cyst HERNIA REPAIR W/MESH 07/23/2015 IMPLANT MESH OPN HERNIA RPR/DEBRIDEMENT CLOSURE 07/23/2015 LAPAROSCOPY REPAIR INCISIONAL HERNIA REDUCIBLE 07/23/2015 REMOVAL OF KIDNEY 02/01/2006 REMOVAL OF SKIN LESION 02/06/2016 lipoma upper back REMOVAL SKIN LESION 2.1-3.0 CM scalp in 4th grade S MENISCAL REPAIR OUT/IN Right 2019 TONSILLECTOMY PRIMARY/SECONDARY Tonsillectomy FAMILY HISTORY Problem Relation Age of Onset Cancer Mother leukemia Stroke Father Cancer Brother smoker Social History Tobacco Use Smoking status: Never Smokeless tobacco: Never Vaping Use Vaping status: Never Used Substance Use Topics Alcohol use: Yes Alcohol/week: 7.0 standard drinks of alcohol Types: 7 Glasses of Wine (5oz) per week Drug use: No Past medical history, appointments, medications, allergies reviewed. Pertinent Lab/Diagnostic Studies are reviewed and discussed today Current Outpatient Medications: ascorbic acid (VITAMIN C ORAL) cholecalciferol, vitamin D3, (VITAMIN D3 ORAL) vitamin B complex (B COMPLEX ORAL) hydrocortisone 2.5 % cream Review of Systems CONSTITUTIONAL: No fevers, chills night sweats, unintended weight loss CARDIOVASCULAR: No chest pain, dyspnea, palpitations, orthopnea, PND, ankle edema. PULM: No dyspnea, unexplained cough. GI: No dysphagia/odynophagia , problematic reflux, constipation, diarrhea, changes in stool habits, hematochezia, melena. : No new urinary complaints, including dysuria, gross hematuria or pyuria. NEURO: No new balance problems, peripheral weakness/paresthesias or numbness of concern. Physical Exam BP 108/70 Pulse 78 Resp 16 Wt 68.9 kg (152 lb) BMI 22.94 kg/m? General appearance: Well appearing, alert, in no acute distress, well nourished. Skin: Skin color, texture, turgor normal, no suspicious rashes or lesions Head: Normocephalic, no masses, lesions, tenderness or abnormalities Ey (more content not included)... Normal [facility] Cobalamin (Vitamin B12) [Mas s/Vol]on 06-13-2024 Interpretation and review of laboratory results Normal [facility] Comprehensive metabolic 2000 panelon 06-13-2024 Albumin [Mass/Vol] 4.4 g/dL 3.9 - 4.9 g/dL [facility] ALP [Catalytic activity/Vol] 66 U/L 34 - 123 U/L [facility] ALT [Catalytic activity/Vol] 22 U/L 7 - 38 U/L [facility] Anion gap [Moles/Vol] 11 mmol/L 8 - 15 mmol/L [facility] AST [Catalytic activity/Vol] 30 U/L 13 - 35 U/L [facility] Bilirubin [Mass/Vol] 0.4 mg/dL 0.2 - 1 .3 mg/dL [facility] Calcium [Mass/Vol] 9.9 mg/dL 8.5 - 10. 2 mg/dL [facility] Chloride [Moles/Vol] 102 mmol/L 98 - 10 7 mmol/L [facility] CO2 [Moles/Vol] 24 mmol/L 22 - 30 mmol/L [facility] Creatinine [Mass/Vol] 0.86 mg/dL 0.58 - 0.96 mg/dL [facility] GFR/1.73 sq M.predicted among non-blacks MDRD (S/P/Bld) [Vol rate/Area] 73 mL/min/{1.73_m2} - PINF [facility] Comment on above: Estimated Glomerular Filtration Rate (eGFR) is calculated using the 2020 CKD-EPI creatinine equation. This equation utilizes serum creatinine, sex, and age as parameters. The creatinine assay has traceable calibration to isotope dilution-mass spectrometry. Refer to KDIGO guidelines for clinical interpretation. In patients with unstable renal function, e.g. those with acute kidney injury, the eGFR may not accurately reflect actual GFR. Glucose [Mass/Vol] 93 mg/dL 74 - 99 mg/dL [facility] Comment on above: The [place] Diabete s Association (ADA) provides guidance for cutoff values for fasting glucose and random glucose. The ADA defines fasting as no caloric intake for at least 8 hours. Fasting plasma glucose results between 100 to 125 mg/dL indicate increased risk for diabetes (prediabetes). Fasting plasma glucose results greater than or equal to 126 mg/dL meet the criteria for diagnosis of diabetes. In the absence of unequivocal hyperglycemia, results should be confirmed by repeat testing. In a patient with classic symptoms of hyperglycemia or hyperglycemic crisis, random plasma glucose results greater than or equal to 200 mg/dL meet the criteria for diagnosis of diabetes. Reference: Standards of Medical Care in Diabetes 2016, [place] Diabetes Association. Diabetes Care. 2016.39(Suppl 1). Interpretation and review of laboratory results Normal [facility] Potassium [Moles/Vol] 4.6 mmol/L 3.7 - 5.1 mmol/L [facility] Protein [Mass/Vol] 7.0 g/dL 6.3 - 8.0 g/dL [facility] Sodium [Moles/Vol] 137 mmol/L 136 - 144 mmol/L [facility] Urea nitrogen [Mass/Vol] 11 mg/dL 7 - 21 mg/dL [facility] Albumin [Mass/Vol] 4.4 g/dL Normal 3.9-4.9 [facility] Comment on above: Order Comment: Speci men Type: BLOOD SPECIMENOrdering Facility: [facility] Address: [address] [place] [address] Performed By: #### 2 4323-8, , 2132-02 ####[facility] LABCLIA [id number] [place] [address] [place] ALP [Catalytic activity/Vol] 66 U/L Normal 34-123 [facility] Comment on above: Order Comment: Speci men Type: BLOOD SPECIMENOrdering Facility: [facility] Address: [address] [place] [address] Performed By: #### 2 4323-8, 74072-2, 2132-02 ####[facility] LABCLIA [id number] [place] [address] [place] ALT [Catalytic activity/Vol] 22 U/L Normal 7-38 [facility] Comment on above: Order Comment: Speci men Type: BLOOD SPECIMENOrdering Facility: [facility] Address: [address] [place] [address] Performed By: #### 2 4323-8, 54457-7, 2132-02 ####[facility] LABCLIA [id number] [place] [address] [place] Anion gap [Moles/Vol] 11 mmol/L Normal 8-15 [facility] Comment on above: Order Comment: Speci men Type: BLOOD SPECIMENOrdering Facility: [facility] Address: [address] [place] [address] Performed By: #### 2 4323-8, 59069-6, 2132-02 ####[facility] LABCLIA [id number] [place] [address] [place] AST [Catalytic activity/Vol] 30 U/L Normal 13-35 [facility] Comment on above: Order Comment: Speci men Type: BLOOD SPECIMENOrdering Facility: [facility] Address: [address] [place] [address] Performed By: #### 2 4323-8, , 2132-02 ####[facility] LABCLIA [id number] [place] [address] [place] Bilirubin [Mass/Vol] 0.4 mg/dL Normal 0.2-1.3 [facility] Comment on above: Order Comment: Speci men Type: BLOOD SPECIMENOrdering Facility: [facility] Address: [address] [place] [address] Performed By: #### 2 4323-8, 30811-1, 2132-02 ####[facility] LABCLIA [id number] [place] [id number] [place] Calcium [Mass/Vol] 9.9 mg/dL Normal 8.5-10.2 [facility] Comment on above: Order Comment: Speci men Type: BLOOD SPECIMENOrdering Facility: [facility] Address: [address] [place] [address] Performed By: #### 2 4323-8, 84404-6, 2132-02 ####[facility] LABCLIA [id number] [place] [id number] [place] Chloride [Moles/Vol] 102 mmol/L Normal 98-107 [facility] Comment on above: Order Comment: Speci men Type: BLOOD SPECIMENOrdering Facility: [facility] Address: [address] [place] [address] Performed By: #### 2 4323-8, , 2132-02 ####[facility] LABCLIA [id number] [place] [address] [place] CO2 [Moles/Vol] 24 mmol/L Normal 22-30 [facility] Comment on above: Order Comment: Speci men Type: BLOOD SPECIMENOrdering Facility: [facility] Address: [address] [place] [address] Performed By: #### 2 4323-8, , 2132-02 ####[facility] LABCLIA [id number] [place] [address] [place] Creatinine [Mass/Vol] 0.86 mg/dL Normal 0.58-0.96 [facility] Comment on above: Order Comment: Speci men Type: BLOOD SPECIMENOrdering Facility: [facility] Address: [address] [place], [place] [address] Performed By: #### 2 4323-8, , 2132-02 ####[facility] LABCLIA [id number] [address] [address] [place] Creatinine and Glomerular filtration rate.predicted panel (S/P/Bld) 73 mL/min/1.73m??? Normal >=60 [facility] Comment on above: Order Comment: Ann pretty Type: BLOOD SPECIMENOrdering Facility: [facility] Address: [address] [place] [address] Result Comment: Allison mated Glomerular Filtration Rate (eGFR) is calculated using the 2020 CKD-EPI creatinine equation. This equation utilizes serum creatinine, sex, and age as parameters. The creatinine assay has traceable calibration to isotope dilution-mass spectrometry. Refer to KDIGO guidelines for clinical interpretation. In patients with unstable renal function, e.g. those with acute kidney injury, the eGFR may not accurately reflect actual GFR. Performed By: #### 2 4323-8, 32399-5, 2132-02 ####[facility] LABIA [id number] [place] [address] [place] Glucose [Mass/Vol] 93 mg/dL Normal 74-99 [facility] Comment on above: Order Comment: Ann pretty Type: BLOOD SPECIMENOrdering Facility: [facility] Address: [address] [place] [address] Result Comment: The [place] Diabetes Association (ADA) provides guidance for cutoff values for fasting glucose and random glucose. The ADA defines fasting as no caloric intake for at least 8 hours. Fasting plasma glucose results between 100 to 125 mg/dL indicate increased risk for diabetes (prediabetes). Fasting plasma glucose results greater than or equal to 126 mg/dL meet the criteria for diagnosis of diabetes. In the absence of unequivocal hyperglycemia, results should be confirmed by repeat testing. In a patient with classic symptoms of hyperglycemia or hyperglycemic crisis, random plasma glucose results greater than or equal to 200 mg/dL meet the criteria for diagnosis of diabetes. Reference: Standards of Medical Care in Diabetes 2016, [place] Diabetes Association. Diabetes Care. 2016.39(Suppl 1). Performed By: #### 2 4323-8, 41979-7, 2132-02 ####[facility] LABIA [id number] [place] [id number] [place] Potassium [Moles/Vol] 4.6 mmol/L Normal 3.7-5.1 [facility] Comment on above: Order Comment: Ann pretty Type: BLOOD SPECIMENOrdering Facility: [facility] Address: [address] [place] [address] Performed By: #### 2 4323-8, 36516-2, 2132-02 ####[facility] LABCLIA [id number] [place] [id number] [place] Protein [Mass/Vol] 7.0 g/dL Normal 6.3-8.0 [facility] Comment on above: Order Comment: Speci men Type: BLOOD SPECIMENOrdering Facility: [facility] Address: [address] [place] [address] Performed By: #### 2 4323-8, , 2132-02 ####[facility] LABIA [id number] [place] [address] [place] Sodium [Moles/Vol] 137 mmol/L Normal 136-144 [facility] Comment on above: Order Comment: Speci men Type: BLOOD SPECIMENOrdering Facility: [facility] Address: [address] [place] [address] Performed By: #### 2 4323-8, , 2132-02 ####[facility] LABIA [id number] [place] [id number] [place] Urea nitrogen [Mass/Vol] 11 mg/dL Normal 7-21 [facility] Comment on above: Order Comment: Speci men Type: BLOOD SPECIMENOrdering Facility: [facility] Address: [address] [place] [address] Performed By: #### 2 4323-8, , 2132-02 ####[facility] LABIA [id number] [place] [id number] [place] HbA1c (Bld)on 06-13-2024 Average glucose Estimated from glycated hemoglobin (Bld) [Mass/Vol] 117 mg/dL [facility] Comment on above: eAG: (Estimated aver age glucose) is a calculated value from HgbA1c and is telecommunications sales representative of the average blood glucose level in the last 2-3 month period. HbA1c (Bld) [Mass fraction] 5.7 % High 4.3 - 5.6 % [facility] Comment on above: [place] Diabetes As sociation guidelines indicate that patients with HgbA1c in the range 5.7-6.4% are at increased risk for development of diabetes, and intervention by lifestyle modification may be beneficial. HgbA1c greater or equal to 6.5% is considered diagnostic of diabetes. Interpretation and review of laboratory results Abnormal [facility] Average glucose Estimated from glycated hemoglobin (Bld) [Mass/Vol] 117 mg/dL Normal [facility] Comment on above: Order Comment: Ann pretty Type: BLOOD SPECIMENOrdering Facility: [facility] Address: [address] [place] [address] Result Comment: eAG: (Estimated average glucose) is a calculated value from HgbA1c and is telecommunications sales representative of the average blood glucose level in the last 2-3 month period. Performed By: #### 5 5454-3 ####[facility] LABCLIA [id number] [place] [address] [place] HbA1c (Bld) [Mass fraction] 5.7 % High 4.3-5.6 [facility] Comment on above: Order Comment: Ann pretty Type: BLOOD SPECIMENOrdering Facility: [facility] Address: [address] [place] [address] Result Comment: [place] Diabetes Association guidelines indicate that patients with HgbA1c in the range 5.7-6.4% are at increased risk for development of diabetes, and intervention by lifestyle modification may be beneficial. HgbA1c greater or equal to 6.5% is considered diagnostic of diabetes. Performed By: #### 5 5454-3 ####[facility] LABCLIA [id number] [place] [address] [place] Lipid 1996 panelon 4 Cholesterol [Mass/Vol] 230 mg/dL High NINF - 200 mg/dL [facility] Comment on above: <200 mg/dL, Desirabl e 200-239 mg/dL, Borderline high >239 mg/dL, High Cholesterol in HDL [Mass/Vol] 64 mg/dL 39 - PINF mg/dL [facility] Comment on above: 40-59 mg/dL, Accepta ble >59 mg/dL, High: Negative risk factor for coronary heart disease <40 mg/dL, Low: Positive risk factor for coronary heart disease Cholesterol in LDL [Mass/Vol] 150 mg/dL High NINF - 100 mg/dL [facility] Comment on above: <100 mg/dL, Optimal 100-129 mg/dL, Near optimal/above optimal 130-159 mg/dL, Borderline high 160-189 mg/dL, High >189 mg/dL, Very high Secondary prevention optimal LDL Cholesterol levels are recommended to be < 70 mg/dL Cholesterol in LDL/Cholesterol in HDL [Mass ratio] 2.34 {ratio} NINF - 2.54 [facility] Comment on above: Reference: 1. National Cholesterol Education Program ATP III Guideline At-A-Glance Quick Desk Reference: National Heart, Lung, and Blood [place]. National Institutes of Health. 2001: NIH Publication No. 01-3305. 2. An International Atherosclerosis Society position paper: global recommendations for the management of dyslipidemia: executive summary, Atherosclerosis. 2014: 232(2):410-413. Cholesterol in VLDL [Mass/Vol] 16 mg/dL NINF - 30 mg/dL [facility] Cholesterol non HDL [Mass/Vol] 166 mg/dL High NINF - 130 mg/dL [facility] Comment on above: <130 mg/dL, Optimal 130-159 mg/dL, Near optimal/above optimal 160-189 mg/dL, Borderline high 190-219 mg/dL, High >219 mg/dL, Very high Secondary prevention optimal non HDL Cholesterol levels are recommended to be <100 mg/dL Cholesterol.total/Cho lesterol in HDL [Mass ratio] 3.59 {ratio} NINF - 5.10 [facility] Fasting Time 14 hrs [facility] Interpretation and review of laboratory results Abnormal [facility] Triglyceride [Mass/Vol] 80 mg/dL NINF - 150 mg/dL [facility] Comment on above: <150 mg/dL, Normal 150-199 mg/dL, Borderline high 200-499 mg/dL, High >499 mg/dL, Very high Cholesterol [Mass/Vol] 230 mg/dL High <200 [facility] Comment on above: Order Comment: Speci men Type: BLOOD SPECIMENOrdering Facility: [facility] Address: [address] [place] [address] Result Comment: <200 mg/dL, Desirable 200-239 mg/dL, Borderline high >239 mg/dL, High Performed By: #### 2 4323-8, 14059-2, 2132-02 ####[facility] LABCLIA [id number] [facility] [address] [address] [place] Cholesterol in HDL [Mass/Vol] 64 mg/dL Normal >39 [facility] Comment on above: Order Comment: Speci men Type: BLOOD SPECIMENOrdering Facility: [facility] Address: [address] [place] [address] Result Comment: 40-5 9 mg/dL, Acceptable >59 mg/dL, High: Negative risk factor for coronary heart disease <40 mg/dL, Low: Positive risk factor for coronary heart disease Performed By: #### 2 4323-8, , 2132-02 ####[facility] LABCLIA [id number] [address] [address] [place] Cholesterol in LDL [Mass/Vol] 150 mg/dL High <100 [facility] Comment on above: Order Comment: Speci men Type: BLOOD SPECIMENOrdering Facility: [facility] Address: [address] [place] [address] Result Comment: <100 mg/dL, Optimal 100-129 mg/dL, Near optimal/above optimal 130-159 mg/dL, Borderline high 160-189 mg/dL, High >189 mg/dL, Very high Secondary prevention optimal LDL Cholesterol levels are recommended to be < 70 mg/dL Performed By: #### 2 4323-8, 67695-2, 2132-02 ####[facility] LABCLIA [id number] [place] [id number] [place] Cholesterol in LDL/Cholesterol in HDL [Mass ratio] 2.34 {ratio} Normal <2.54 [facility] Comment on above: Order Comment: Speci men Type: BLOOD SPECIMENOrdering Facility: [facility] Address: [address] [place] [address] Result Comment: Jennifer ruggiero: 1. National Cholesterol Education Program ATP III Guideline At-A-Glance Quick Desk Reference: National Heart, Lung, and Blood [place]. National Institutes of Health. 2001: NIH Publication No. 01-3305. 2. An International Atherosclerosis Society position paper: global recommendations for the management of dyslipidemia: executive summary, Atherosclerosis. 2014: 232(2):410-413. Performed By: #### 2 4323-8, 55913-9, 2132-02 ####[facility] LABCLIA [id number] [place] [address] [place] Cholesterol in VLDL [Mass/Vol] 16 mg/dL Normal <30 [facility] Comment on above: Order Comment: Speci men Type: BLOOD SPECIMENOrdering Facility: [facility] Address: [address] [place] [address] Performed By: #### 2 4323-8, , 2132-02 ####[facility] LABCLIA [id number] [place] [address] [place] Cholesterol non HDL [Mass/Vol] 166 mg/dL High <130 [facility] Comment on above: Order Comment: Ann pretty Type: BLOOD SPECIMENOrdering Facility: [facility] Address: [address] [place] [address] Result Comment: <130 mg/dL, Optimal 130-159 mg/dL, Near optimal/above optimal 160-189 mg/dL, Borderline high 190-219 mg/dL, High >219 mg/dL, Very high Secondary prevention optimal non HDL Cholesterol levels are recommended to be <100 mg/dL Performed By: #### 2 4323-8, 75611-4, 2132-02 ####[facility] LABCLIA [id number] [place] [address] [place] Cholesterol.total/Cho lesterol in HDL [Mass ratio] 3.59 {ratio} Normal <5.10 [facility] Comment on above: Order Comment: Cherriei men Type: BLOOD SPECIMENOrdering Facility: [facility] Address: [address] [place] [address] Performed By: #### 2 4323-8, 21446-0, 2132-02 ####[facility] LABCLIA [id number] [place] [address] [place] FASTING TIME 14 hrs Normal [facility] Comment on above: Order Comment: Speci men Type: BLOOD SPECIMENOrdering Facility: [facility] Address: [address] [place] [address] Performed By: #### 2 4323-8, 81704-1, 2132-02 ####[facility] LABCLIA [id number] [place] [address] [place] Triglyceride [Mass/Vol] 80 mg/dL Normal <150 [facility] Comment on above: Order Comment: Speci men Type: BLOOD SPECIMENOrdering Facility: [facility] Address: [address] [place] [address] Result Comment: <150 mg/dL, Normal 150-199 mg/dL, Borderline high 200-499 mg/dL, High >499 mg/dL, Very high Performed By: #### 2 4323-8, 88017-4, 2132-02 ####[facility] LABCLIA [id number] [place] [address] [place] No Panel Informationon 06-13 [facility] VITAMIN B12on 06-13-2024 Cobalamin (Vitamin B12) [Mass/Vol] 502 pg/mL 232 - 1245 pg/mL [facility] VITAMIN D 25 HYDROXYon 06-13 25-hydroxyvitamin D3 [Mass/Vol] 27.9 ng/mL Low 31.0 - 80.0 ng/mL [facility] Comment on above: Classification of 25 [place] Vitamin D status: Deficiency/Insufficiency: < or = 30 ng/ml. Sufficiency/Optimal Levels: 31-80 ng/mL Toxicity: > 100 ng/mL. Test performed by chemiluminescent immunoassay. Vit B12 SerPl-mCncon 024 Cobalamin (Vitamin B12) [Mass/Vol] 502 pg/mL Normal 232-1245 [facility] Comment on above: Order Comment: Speci men Type: BLOOD SPECIMENOrdering Facility: [facility] Address: [address] [place] [address] Performed By: #### 2 4323-8, 79142-1, 2132-9 ####[facility] LABCLIA [id number] [id number] [facility] CNOVon 04-18-2024 CNOV Office Visit (OBGYWM ) ZULEMAJoshFRANCISCA Zhou ([id number]) 1955 F Date Time Provider Department 04/18/24 11:10 AM JUJU REILLY OBGYWM During your visit today, we recorded the following information about you: Blood pressure Weight 100/60 70.4 kg Juju Reilly MD 04/18/2024 1:12 PM Signed Grey Percher offered: Patient declines. Francisca Cooper is a 69 year old female who presents today for a vulvar biopsy. Indication: new skin lesion. UNIVERSAL PROTOCOL / SAFETY CHECKLIST Procedure to be Performed: Punch Biopsy of inner thigh and perineum Sign In: A Moment of CARE was completed. Personnel directly involved with the procedure wore the appropriate PPE (Personal Protective Equipment). Patient/Surrogate Stated/Verified: PATIENT VERIFIED(optional for EMERGENT procedures): Patient name, Date of , Relevant allergies, and The intended procedure Time Out Communication: Intended patient and procedure match the source documents. Consent documented and matches the intended procedure. Sign Out: SIGN OUT (optional for EMERGENT procedures): All specimen containers correctly labeled. All instruments, equipment, possible retained foreign bodies accounted for. Post-procedure follow-up management communicated and Plan of Care Visit completed when applicable. PROCEDURE NOTE: GROSS LESIONS: Yes, two skin colored raised circular lesions over left intercrural fold < 1 cm in size, and one skin colored raised circular lesion over right buttock < 1 cm in size. No vulvar lesions noted BIOPSY: Area was cleansed with betadine and anesthetized with 2 mL 1% lidocaine with 1:100,000 epi. 4 mm Rossy punch used to biopsy region. HEMOSTASIS: Obtained with silver nitrate and pressure Procedure Summary: Patient tolerated procedure well. ASSESSMENT: new vulvar lesion PLAN: Specimens labeled and sent to Pathology. Will notify patient of results in 1-2 weeks. Post-procedure instructions reviewed and written material given to the patient. Juju Reilly DO Allergies As of Date: 04/18/2024 Noted Allergy Reaction IBUPROFEN 02/06/2016 15 - Contraindication-Medi ori Burris* Date Reviewed: 04/18/2024 Reviewed by: Kristen Cook MA - Fully Assessed Reason for Visit: Follow Up [171] Cmt: Punch biopsy for lesions Primary Visit Diagnosis:Skin lesion [L98.9] Order(s):SURGICAL PATHOLOGY [DTL4308] Order #: [id number]. #:[id number] Prescriptions as of 04/18/2024 - hydrocortisone 2.5 % cream - cholecalciferol, vitamin D3, (VITAMIN D3 ORAL) Take by mouth. - vitamin B complex (B COMPLEX ORAL) Take by mouth. 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] 01/25/2016 Osteopenia [M85.80] 01/25/2016 Syncope [R55] 08/13/2016 01/10/2020 Diarrhea of presumed infectious origin [R19.7] 08/13/2016 01/10/2020 Dehydration [E86.0] 08/13/2016 01/10/2020 Ganglion, finger of left hand [M67.442] 09/21/2017 Encounter for screening for malignant neoplasm *02/09/2018 01/10/2020 Encounter Status:Closed by JUJU REILLY on 04/18/24 Normal [facility] SURGICAL PATHOLOGYon CASE REPORT Normal [facility] Comment on above: Order Comment: Speci men Type: TISSUE SPECIMEN [facility] Address: [address] [place] [address] Result Comment: Surg ical Pathology Report Case: [id number] Authorizing Provider: Juju Reilly MD Collected: 04/18/2024 12:00 PM Ordering Location: OB/Gynecology Received: 04/19/2024 08:26 AM Pathologist: Neftaly Baird MD Specimens: A) - Skin, Punch Biopsy, Right Buttocks B) - Skin, Punch Biopsy, Left intercrural fold Performed By: #### S #### [facility] CLIA [id number] [address] [place] [address] [place] CLINICAL HISTORY Lesion Normal [facility] Comment on above: Order Comment: Speci men Type: TISSUE SPECIMEN [facility] Address: [address] [place] [address] Performed By: #### S #### [facility] CLIA [id number] [address] [place] [address] [facility] FINAL DIAGNOSIS Normal [facility] Comment on above: Order Comment: Speci men Type: TISSUE SPECIMEN [facility]ing [facility]: [facility] Address: [address] [place] [address] Result Comment: A. S kin, right buttocks, punch biopsy: - Molluscum contagiosum. B. Skin, left intercrural fold, punch biopsy: - Molluscum contagiosum. Performed By: #### S #### [facility] CLIA [id number] [address] [place] [address] [place] FINAL PERFORMING LAB Normal [facility] Comment on above: Order Comment: Speci men Type: TISSUE SPECIMEN [facility]ing Facility: [facility] Address: [address] [place] [address] Result Comment: Diag nostic interpretation performed at [facility], [address] [place] [address] CLIA# [id number] Friction Saw Operator: Donato Green M.D. Performed By: #### S #### [facility] CLIA [id number] [address] [place] [address] [place] GROSS DESCRIPTION Normal [facility] Comment on above: Order Comment: Speci men Type: TISSUE SPECIMEN [facility]ing Facility: [facility] Address: [address] [place] [address] Result Comment: A. S kin, Punch Biopsy Received in formalin is a cylindrical segment of skin and subcutaneous tissue measuring 0.4 x 0.3 x 0.3 cm. On the skin surface there is a 0.3 cm, roa-white, slightly elevated waxy area. The specimen is bisected. Totally submitted in one cassette. B. Skin, Punch Biopsy Received in formalin are two segments of roa, soft skin aggregating to 0.9 x 0.4 x 0.3 cm. Specimen is sectioned. Totally submitted in two cassettes. K April 19, 2024 6:24 PM Gross examination performed at [facility], [address] [place] [address] Performed By: #### S #### [facility] IA [id number] [address] [place] [address] [place] MG Breast Screeningon 2023 IMPRESSION: There is no mammographic evidence of malignancy in either breast. Routine follow-up mammogram in 1 year is recommended. BI-RADS Category 1: Negative RISK: Based on the Tyrer-Cuzick (TC) risk assessment model, this patient has a 2.7% lifetime risk of developing breast cancer, meaning they are at average risk for developing breast cancer. However, this is only an estimate based on available history provided on the patient's questionnaire. We encourage all patients talk with their providers about these results, further recommendations for managing breast health, and appropriate supplemental screening options if the patient has dense breast tissue. Interpreting Radiologist: Mikala Lozano M.D. Lab Pack Chemist: RENETTA Transcribe Date/Time: Mar 28 2024 7:30A Dictated by: MIKALA LOZANO MD This examination was interpreted and the report reviewed and electronically signed by: MIKALA LOZANO MD on Mar 29 2024 8:13AM [facility] DIVISION OF RADIOLOGY * * *Final Report* * * DATE OF EXAM: Mar 28 2024 7:54AM [facility] 0581 - [facility] SCREENING / PROCEDURE REASON: Visit for screening mammogram * * * * Physician Interpretation * * * * RESULT: [place] [id number] [place] [id number] HISTORY: Patient is 69 years old and is seen for screening. No current complaints. The patient has no personal history of cancer. COMPARISON STUDIES: The present examination has been compared to prior imaging studies dated 09/28/2018 (mammogram), 12/08/2019 (mammogram), 01/02/2021 (mammogram), 02/17/2022 (mammogram) and 03/27/2023 (mammogram). MAMMOGRAM TECHNIQUE: The study was acquired using full field digital technology and interpreted from soft copy. Digital Breast Tomosynthesis (DBT) images were obtained and used to assist in the interpretation of this examination. Computer-aided detection was utilized by the radiologist in the interpretation of this examination. MAMMOGRAM FINDINGS: There are scattered areas of fibroglandular density. No suspicious masses, calcifications or other abnormalities are seen in either breast. There are no significant changes from the prior study. DIVISION OF RADIOLOGY Provider, [facility] - 03/29/2024 * * *Final Report* * * DATE OF EXAM: Mar 28 2024 7:54AM [facility] 0581 - [facility] SCREENING / PROCEDURE REASON: Visit for screening mammogram * * * * Physician Interpretation * * * * RESULT: [place] [id number] HISTORY: Patient is 69 years old and is seen for screening. No current complaints. The patient has no personal history of cancer. COMPARISON STUDIES: The present examination has been compared to prior imaging studies dated 09/28/2018 (mammogram), 12/08/2019 (mammogram), 01/02/2021 (mammogram), 02/17/2022 (mammogram) and 03/27/2023 (mammogram). MAMMOGRAM TECHNIQUE: The study was acquired using full field digital technology and interpreted from soft copy. Digital Breast Tomosynthesis (DBT) images were obtained and used to assist in the interpretation of this examination. Computer-aided detection was utilized by the radiologist in the interpretation of this examination. MAMMOGRAM FINDINGS: There are scattered areas of fibroglandular density. No suspicious masses, calcifications or other abnormalities are seen in either breast. There are no significant changes from the prior study. IMPRESSION IMPRESSION: There is no mammographic evidence of malignancy in either breast. Routine follow-up mammogram in 1 year is recommended. BI-RADS Category 1: Negative RISK: Based on the Tyrer-Cuzick (TC) risk assessment model, this patient has a 2.7% lifetime risk of developing breast cancer, meaning they are at average risk for developing breast cancer. However, this is only an estimate based on available history provided on the patient's questionnaire. We encourage all patients talk with their providers about these results, further recommendations for managing breast health, and appropriate supplemental screening options if the patient has dense breast tissue. Interpreting Radiologist: Mikala Lozano M.D. Lab Pack Chemist: RENETTA Transcribe Date/Time: Mar 28 2024 7:30A Dictated by: MIKALA LOZANO MD This examination was interpreted and the report reviewed and electronically signed by: MIKALA LOZANO MD on Mar 29 2024 8:13AM EST [facility] Breast ScreeningOrdered B y: [facility] Provider on 03-29-2024 [facility] MG Breast Screeningon 2023 Radiology Study observation (narrative) [facility] MICHELLE SCREENINGon 03-27-2023 [facility] Emergency Department Summary on 10-21-2021 Emergency Department Summary [facility] Medical Records Department [address] [place] [id number] Emergency Department Summary 10/21/21 MR#: [id number] Acct: [id number] Name: FRANCISCA COOPER Rep #: [id number] : 1955 66 From: Alexis Mcdonald MD PCP: Dr. Evita Novak MD Status:REG ER Location: ED HPI History of Present Illness Chief Complaint: Laceration Detail of Chief Complaint: Laceration palmar aspect right long finger. Informant: patient Occured/Mechanism Mechanism/Context: Yes injury Onset/Context/Timing Onset: Today and Hours Context: Sudden Onset Timing: Continuous Current Severity: Mild Maximum Severity: Mild Associated Symptoms Associated Symptoms: Negative for Parasthesia, Weakness and Loss of Funtion Narrative Narrative: 66-year-old female [id number]. Was putting stuff away and pulling stuff down from the shelf when a blade from a food production associate fell and cut her right hand palmar aspect at the MCP of the right long finger. This occurred within the last hour. She is unsure of her last tetanus and will be updated. Denies any other injuries. Tetanus Immunization: Unknown Prior similar symptoms: No Recent Illness/Hospitalizati on: No PFSH PFSH Medical History Knee pain Shoulder pain Allergy/AdvReac Type Severity Reaction Status Date / Time ibuprofen AdvReac Other Verified 10/21/21 18:50 SURGICAL TAPE Allergy Other Uncoded 10/21/21 18:50 Family History Other CVA (cerebral vascular accident) Cancer Surgical History History of hernia repair History of kidney donation History of tonsillectomy and adenoidectomy Social History Smoking Status: Never smoker alcohol intake: current ROS ROS ED ROS Narrative Denies recent illness. Review of Systems ROS Unobtainable: Denies due to encephalopathy Constitutional Constitutional ED: Denies fever(s) Eyes Eyes: Denies change in vision ENT ENT ED: Denies ear pain Cardiovascular Cardiovascular: Denies chest pain Respiratory/Chest Respiratory/Chest: Denies cough or dyspnea Gastrointestinal Gastrointestinal: Denies abdominal pain, nausea or vomiting Genitourinary Genitourinary ED: Denies dysuria Musculoskeletal Musculoskeletal: Denies myalgias Integumentary Denies rash Neurologic Neurologic: Denies headache(s) Psychiatric Psychiatric: Denies depression Endocrine Endocrinology: Denies polyuria Hematologic/Lymphatic Hematologic/Lymphatic : Denies easy bruising Allergic/Immunologic Allergic/Immunologic ED: Denies urticaria EXAM Physical Exam Narrative Exam Narrative: Progress 2 cm laceration right hand palmar aspect and MCP. Full flexion-extension. Normal touch sensation. No active bleeding. No signs of infection or foreign body. Const Vital Signs: 10/21/21 18:51 Temperature 98.6 F Temperature Source Temporal Pulse Rate 96 Respiratory Rate 15 Blood Pressure 131/100 H Blood Pressure Mean 110 Pulse Ox 98 Oxygen Delivery Method Room Air Positive well nourished and well developed; Negative for obese, cachectic, contractures or unkempt General Appearance ED: well developed and NAD; Negative for unkempt, cachectic, contractures, cyanotic or diaphoretic Nutritional Appearance: Negative for cachectic or obese HEENT Reports moist mucous membranes normocephalic and atraumatic; Negative for trauma or tenderness Eyes PERRL and EOMs intact bilaterally Neck full ROM and supple General: Negative for tenderness Chest Wall inspection of chest normal and palpation of chest normal Resp normal respiratory effort and clear to auscultation bilaterally Auscultation: Negative for rales or rhonchi Cardio regular rate, regular rhythm, S1 normal heart sound, S2 normal heart sound and no murmurs GI non-tender, non-distended and no masses Auscultation: normoactive bowel sounds Palpation: soft; Negative for tender or guarding Extremity normal to inspection and full ROM Extremity Narrative: Laceration palmar aspect right long finger at the MCP of 2 cm. No bleeding. No foreign body. No infection. Full range of motion. Neurovascular intact. General Extremety ED: Negative for edema General Extremity: Negative for edema Neuro oriented x3 and moves all extremities Sensorium / Orientation: alert, oriented to person, oriented to place and oriented to time Motor Exam: strength 5/5 throughout Psych mental status grossly normal Appearance: Negative for unkempt Mood Affect: Negative for depressed Skin Lesions: no lesions Rashes: no rashes Trauma: laceration; Negative for no lacerations or abrasions MDM MDM MDM Narrative Medical de (more content not included)... Normal [facility] Vital Signs Date Time Vital Sign Value Performing Clinician Faci lity 01-26-2025 08:09-0400 Body mass index (BMI) [Ratio] 22.97 kg/m2 Evita Novak MD Work Phone: [facility] 01-26-2025 08:09-0400 Body weight 69.04 kg Evita Novak MD Work Phone: [facility] 01-26-2025 08:09-0400 Diastolic blood pressure 72 mm[Hg] Evita Novak MD Work Phone: [facility] 01-26-2025 08:09-0400 Heart rate 87 /min Evita Novak MD Work Phone: [facility] 01-26-2025 08:09-0400 Respiratory rate 16 /min Evita Novak MD Work Phone: [facility] 01-26-2025 08:09-0400 Systolic blood pressure 111 mm[Hg] Evita Novak MD Work Phone: [facility] 06-13-2024 08:55-0500 Body mass index (BMI) [Ratio] 22.94 kg/m2 Evita Novak MD Work Phone: [facility] 06-13-2024 08:55-0500 Body weight 68.95 kg Evita Novak MD Work Phone: [facility] 06-13-2024 08:55-0500 Diastolic blood pressure 70 mm[Hg] Evita Novak MD Work Phone: [facility] 06-13-2024 08:55-0500 Heart rate 78 /min Evita Novak MD Work Phone: [facility] 06-13-2024 08:55-0500 Respiratory rate 16 /min Evita Novak MD Work Phone: [facility] 06-13-2024 08:55-0500 Systolic blood pressure 108 mm[Hg] Evita Novak MD Work Phone: [facility] 04-18-2024 11:17-0400 Body mass index (BMI) [Ratio] 23.43 kg/m2 Juju Reilly MD Work Phone: [facility] 04-18-2024 11:17-0400 Body weight 70.4 kg Juju Reilly MD Work Phone: [facility] 04-18-2024 11:17-0400 Diastolic blood pressure 60 mm[Hg] Juju Reilly MD Work Phone: [facility] 04-18-2024 11:17-0400 Systolic blood pressure 100 mm[Hg] Juju Reilly MD Work Phone: [facility] 03-28-2024 16:01-0400 Body height 173.4 cm Juju Reilly MD Work Phone: [facility] 03-28-2024 16:01-0400 Body mass index (BMI) [Ratio] 23.24 kg/m2 Juju Reilly MD Work Phone: [facility] 03-28-2024 16:01-0400 Body weight 69.85 kg Juju Reilly MD Work Phone: [facility] 03-28-2024 16:01-0400 Diastolic blood pressure 82 mm[Hg] Juju Reilly MD Work Phone: [facility] 03-28-2024 16:01-0400 Systolic blood pressure 142 mm[Hg] Juju Reilly MD Work Phone: [facility] 06-01-2023 11:26-0500 Body height 174.5 cm Tiara Older INSULATION BOARD CALENDER OPERATOR.OFFICER CAPTAIN Work Phone: [facility] 06-01-2023 11:26-0500 Body weight 66.68 kg Tiara Older INSULATION BOARD CALENDER OPERATOR.OFFICER CAPTAIN Work Phone: [facility] 06-01-2023 11:26-0500 Diastolic blood pressure 82 mm[Hg] Tiara Older INSULATION BOARD CALENDER OPERATOR.OFFICER CAPTAIN Work Phone: [facility] 06-01-2023 11:26-0500 Heart rate 86 /min Tiara Older INSULATION BOARD CALENDER OPERATOR.OFFICER CAPTAIN Work Phone: [facility] 06-01-2023 11:26-0500 Systolic blood pressure 120 mm[Hg] Tiara Older INSULATION BOARD CALENDER OPERATOR.OFFICER CAPTAIN Work Phone: [facility] 02-17-2022 10:04-0400 Body height 174.6 cm Juju Reilly MD Work Phone: [facility] 02-17-2022 10:04-0400 Body weight 64.59 kg Juju Reilly MD Work Phone: [facility] 02-17-2022 10:04-0400 Diastolic blood pressure 74 mm[Hg] Juju Reilly MD Work Phone: [facility] 02-17-2022 10:04-0400 Systolic blood pressure 100 mm[Hg] Juju Reilly MD Work Phone: [facility] 10-30-2021 07:29-0400 Body temperature 97.5 [degF] Neel Stephen MD Work Phone: [facility] 10-30-2021 07:29-0400 Body weight 64.5 kg Neel Stephen MD Work Phone: [facility] 10-30-2021 07:29-0400 Diastolic blood pressure 80 mm[Hg] Neel Stephen MD Work Phone: [facility] 10-30-2021 07:29-0400 Heart rate 91 /min Neel Stephen MD Work Phone: [facility] 10-30-2021 07:29-0400 Respiratory rate 18 /min Neel Stephen MD Work Phone: [facility] 10-30-2021 07:29-0400 SaO2% (BldA) [Mass fraction] 99 % Neel Stephen MD Work Phone: [facility] 10-30-2021 07:29-0400 Systolic blood pressure 112 mm[Hg] Neel Stephen MD Work Phone: [facility] 10-21-2021 18:51-0400 Body height 175.26 cm [facility] Work Phone: 10-21-2021 18:51-0400 Body mass index (BMI) [Ratio] 20.5 kg/m2 [facility] Work Phone: 10-21-2021 18:51-0400 Body temperature 98.6 [degF] [facility] Work Phone: 10-21-2021 18:51-0400 Body weight 63.04 kg [facility] Work Phone: 10-21-2021 18:51-0400 Diastolic blood pressure 100 mm[Hg] [facility] Work Phone: 10-21-2021 18:51-0400 Heart rate 96 /min [facility] Work Phone: 10-21-2021 18:51-0400 Respiratory rate 15 /min [facility] Work Phone: 10-21-2021 18:51-0400 SaO2% (BldA) [Mass fraction] 98 % [facility] Work Phone: 10-21-2021 18:51-0400 Systolic blood pressure 131 mm[Hg] [facility] Work Phone: Encounters Encounter Date Encounter Type Care Provider Facility Start: 04-03-2025 ambulatory [facility] Facility:[facility] Start: 01-26-2025 End: 01-26-2025 Office outpatient visit 25 minutes Evita Novak MD Work Phone: [facility] [place] Comment on above: Other osteoporosis, unspecified pathological fracture presence (Primary Dx); Dupuytren's contracture; Encounter for screening mammogram for malignant neoplasm of breast; Screening for depression; Encounter for screening examination for other mental health and behavioral disorders; Special screening examination for viral disease Start: 01-26-2025 End: 01-26-2025 [facility] Facility:[facility] Start: 01-20-2025 End: 01-23-2025 Telephone encounter Evita Novak MD Work Phone: [facility] [place] Comment on above: Patient Question; Ap pointment; Lab Orders Start: 10-11-2024 End: 10-11-2024 ambulatory Graeme Kim MA [employer] [facility] [employer] Start: 10-11-2024 End: 10-11-2024 Patient encounter procedure Graeme Kim MA [facility] Comment on above: Population Health Na vigation Outreach (Zero HCC List - [place] PCSA/) Start: 06-13-2024 End: 06-13-2024 [facility] Facility:[facility] Start: 06-13-2024 End: 06-13-2024 Office outpatient visit 25 minutes Evita Novak MD Work Phone: [facility] [place] Comment on above: Medicare annual well ness visit, subsequent (Primary Dx); Vitamin B12 deficiency; Hyperlipidemia, mixed; Prediabetes; Vitamin D deficiency; Osteoporosis, unspecified osteoporosis type, unspecified pathological fracture presence Start: 06-13-2024 End: 06-13-2024 Patient encounter procedure Evita Novak MD Work Phone: [facility] Start: 04-18-2024 End: 04-18-2024 ambulatory JUJU REILLY Facility:[facility] Start: 04-18-2024 End: 04-18-2024 Patient encounter procedure Juju Reilly MD Work Phone: OB/Gynecology Comment on above: Skin lesion (Primary Dx) Start: 03-29-2024 End: 04-15-2024 Telephone encounter Juju Reilly MD Work Phone: OB/Gynecology Comment on above: Orders (?Biopsy orde r?) Results Start: 03-28-2024 End: 03-28-2024 Patient encounter procedure Juju Reilly MD Work Phone: OB/Gynecology Comment on above: Encounter for gyneco logical examination (general) (routine) without abnormal findings (Primary Dx); Encounter for screening mammogram for breast cancer; Dense breast tissue on mammogram, unspecified type Start: 03-28-2024 End: 03-28-2024 Patient encounter status Juju Reilly MD Work Phone: [facility] Start: 03-28-2024 End: 03-28-2024 Subsequent hospital visit by physician Screen Mammo [facility] Comment on above: Visit for screening mammogram [Z12.31] Start: 06-03-2023 Telephone encounter Tiara Rich APRN.CNP Work Phone: [facility] [place] Comment on above: Results Start: 06-01-2023 End: 06-01-2023 Subsequent hospital visit by physician Bone Density [facility] Work Phone: Radiology Comment on above: Osteoporosis without current pathological fracture, unspecified osteoporosis type [M81.0] Start: 06-01-2023 End: 06-01-2023 Patient encounter procedure Tiara Rich APRN.OFFICER CAPTAIN Work Phone: [facility] [place] Comment on above: Medicare annual well ness visit, subsequent (Primary Dx); Osteoporosis without current pathological fracture, unspecified osteoporosis type; Donor, kidney; Hyperlipidemia, unspecified hyperlipidemia type Start: 04-15-2023 End: 04-15-2023 Patient encounter procedure Tiara Rich INSULATION BOARD CALENDER OPERATOR.OFFICER CAPTAIN Work Phone: [facility] [place] Comment on above: Need for influenza v accination (Primary Dx) Start: 03-30-2023 Documentation procedure Mammog kristen Coordinator [facility] Start: 03-30-2023 Letter encounter Mammography Coordinator [facility] Department Start: 03-27-2023 End: 03-27-2023 Subsequent hospital visit by physician Screen Mammo [facility] Mammogram Comment on above: Encounter for screen ing mammogram for breast cancer [Z12.31] Start: 02-19-2023 Telephone encounter Tiara Rich APRN.OFFICER CAPTAIN Work Phone: [facility] [place] Comment on above: Orders Start: 12-14-2022 ambulatory Evita Novak M Jani Work Phone: [facility] [place] Comment on above: mammogram Start: 02-19-2022 ambulatory Evita Novak M Jani Work Phone: [facility] [place] Comment on above: Advorstatin Start: 02-18-2022 Documentation procedure Mammog kristen Coordinator [facility] Start: 02-18-2022 Letter encounter Mammography Coordinator [facility] Department Start: 02-17-2022 End: 02-17-2022 Subsequent hospital visit by physician Screen Mammo [facility] Mammogram Comment on above: Encounter for screen ing mammogram for breast cancer [Z12.31] Start: 02-17-2022 End: 02-17-2022 Patient encounter procedure Juju Reilly MD Work Phone: OB/Gynecology Comment on above: Encounter for screen ing mammogram for breast cancer (Primary Dx); Encounter for gynecological examination (general) (routine) without abnormal findings; Well woman exam; Other hyperlipidemia Start: 02-17-2022 End: 02-17-2022 Patient encounter status Juju Reilly MD Work Phone: OB/Gynecology Start: 02-05-2022 ambulatory Evita Gunter Work Phone: Internal Medicine [facility] Start: 10-30-2021 End: 10-30-2021 Patient encounter procedure Neel Stephen MD Work Phone: [facility] Comment on above: Laceration of right middle finger without foreign body without damage to nail, initial encounter (Primary Dx) Start: 10-21-2021 End: 10-21-2021 [facility] Start: 09-12-2020 Patient encounter procedure ROB PATEL Facility:[facility] Start: 08-22-2020 Patient encounter procedure ROB PATEL Facility:[facility] Procedures Date Procedure Procedure Detail Performing Clinician Start: 01-26-2025 Adult depression scr eening assessment Evita Novak MD Work Phone: Start: 06-13-2024 Lipid 1996 panel - S delfino or Plasma Evita Novak MD Work Phone: Start: 03-28-2024 Screening mammograph y bi 2-view breast inc cad Evita Novak MD Work Phone: Start: 06-02-2023 Lipid 1996 panel - S delfino or Plasma Tiara Rich APRN.OFFICER CAPTAIN Work Phone: Start: 04-15-2023 INFLUENZA VACCINE, P RSV FREE, AGE 65+ YR, HIGH DOSE, QUADRIVALENT (FLUZONE HIGH-DOSE) Tiara Rich INSULATION BOARD CALENDER OPERATOR.OFFICER CAPTAIN Work Phone: Start: 03-27-2023 Screening mammograph y bi 2-view breast inc cad Tiara Rich INSULATION BOARD CALENDER OPERATOR.OFFICER CAPTAIN Work Phone: Start: 02-19-2022 Lipid 1996 panel - S delfino or Plasma Mammography Coordinator Start: 02-17-2022 Mammography Evita xie MD Work Phone: Start: 01-02-2021 Mammography Neel ferrara MD Work Phone: Start: 02-16-2018 Colonoscopy Neel ferrara MD Work Phone: Start: 05-27-2017 Adult depression scr eening assessment Neel Stephen MD Work Phone: Plan of Treatment Date Care Activity Detail Author Start: 10-22-2031 Urine microalbumin profile DTaP,Tdap,Td Vaccine (2 - Td or Tdap) [facility] Start: 2030 RSV Vaccine (1 - 1-d ose 75+ series) RSV Vaccine (1 - 1-dose 75+ series) [facility] Start: 06-13-2029 Lipid panel Lipid Screening [facility] Start: 06-02-2028 Lipid 1996 panel - Serum or Plasma Lipid Screening [facility] Start: 06-02-2028 Lipid panel Lipid Screening [facility] Start: 02-17-2028 Colonoscopy COLONOSCOPY [facility] Start: 02-17-2028 COLORECTAL CANCER SCREENING COLORECTAL CANCER SCREENING [facility] Start: 02-17-2028 Screening for malign ant neoplasm of colon [facility] Start: 06-13-2027 Diabetes Screening Diabetes Screenin g [facility] Start: 02-19-2027 Lipid 1996 panel - Serum or Plasma Lipid Screening [facility] Start: 02-19-2027 LIPID SCREEN LIPID SCREEN [facility] Start: 06-02-2026 Diabetes Screening Diabetes Screenin [facility] Start: 01-26-2026 Anxiety Screening Anxiety Screening [facility] Start: 01-26-2026 Depression Screening Depression Scre ening [facility] Start: 01-08-2026 LIPID SCREEN LIPID SCREEN [facility] Start: 06-07-2025 End: 09-06-2025 Hepatitis C virus Ab [Presence] in Serum HEPATITIS C ANTIBODY IA WITH CONFIRMATION Lab Routine Special screening examination for viral disease Expected: 06/07/2025, Expires: 09/06/2025 [facility] Comment on above: Expected: 06/07/2025 , Expires: 09/06/2025 Start: 06-05-2025 End: 09-04-2025 25-hydroxyvitamin D3 [Mass/volume] in Serum or Plasma VITAMIN D 25 HYDROXY Lab Routine Osteoporosis without current pathological fracture, unspecified osteoporosis type Expected: 06/05/2025 (Approximate), Expires: 09/04/2025 [facility] Comment on above: Expected: 06/05/2025 (Approximate), Expires: 09/04/2025 Start: 06-05-2025 End: 09-04-2025 CBC W Auto Differential panel - Blood COMPLETE BLOOD COUNT AND DIFFERENTIAL Lab Routine Hyperlipidemia, mixed Expected: 06/05/2025 (Approximate), Expires: 09/04/2025 [facility] Comment on above: Expected: 06/05/2025 (Approximate), Expires: 09/04/2025 Start: 06-05-2025 End: 09-04-2025 Comprehensive metabolic 2000 panel - Serum or Plasma COMPREHENSIVE METABOLIC PANEL Lab Routine Hyperlipidemia, mixed Expected: 06/05/2025 (Approximate), Expires: 09/04/2025 [facility] Work Phone: Comment on above: Expected: 06/05/2025 (Approximate), Expires: 09/04/2025 Start: 06-05-2025 End: 09-04-2025 Hemoglobin A1c in Blood HEMOGLOBIN A1C Lab Routine Prediabetes Expected: 06/05/2025 (Approximate), Expires: 09/04/2025 [facility] Comment on above: Expected: 06/05/2025 (Approximate), Expires: 09/04/2025 Start: 06-05-2025 End: 09-04-2025 Lipid 1996 panel - Serum or Plasma LIPID PANEL, FASTING Lab Routine Hyperlipidemia, mixed Expected: 06/05/2025 (Approximate), Expires: 09/04/2025 [facility] Comment on above: Expected: 06/05/2025 (Approximate), Expires: 09/04/2025 Start: 06-01-2025 Screening for osteoporosis Bone Density Screening [facility] Start: 06-01-2025 End: 06-01-2025 Patient encounter procedure 06/01/2025 8:00 AM EST Office Visit [facility] [place] [address] [place] [address] Evita Novak MD [address] [place] [address] Annual Wellness [facility] [place] Comment on above: Annual Wellness Start: 04-27-2025 End: 04-27-2025 Patient encounter procedure 04/27/2025 7:45 AM EDT Appointment Radiology [address] [place] [id number] Osteoporosis without current pathological fracture, unspecified osteoporosis type [M81.0] Radiology Comment on above: Osteoporosis without current pathological fracture, unspecified osteoporosis type [M81.0] Start: 04-03-2025 End: 04-03-2025 Patient encounter procedure 04/03/2025 8:10 AM EDT Appointment Mammogram [address] [place] [address] : Encounter for screening mammogram for malignant neoplasm of breast [Z12.31] Mammogram Comment on above: : Encounter for scre ening mammogram for malignant neoplasm of breast [Z12.31] Start: 03-28-2025 Screening for malign ant neoplasm of breast Mammogram Screening [facility] Start: 02-27-2025 Influenza vaccination Influenza Vacc ine (#1) [facility] Start: 02-19-2025 DIABETES SCREEN DIABETES SCREEN [facility] Start: 02-19-2025 Diabetes Screening Diabetes Screenin g [facility] Start: 01-26-2025 End: 01-26-2025 Patient encounter procedure 01/26/2025 8:00 AM EDT Office Visit [facility] [place] [address] [place] [address] Evita Novak MD [address] [facility] [place] [address] 6 mo follow up [facility] [place] Comment on above: 6 mo follow up Start: 01-08-2025 Screening for malign ant neoplasm of cervix Cervical Cancer Screening [facility] Start: 12-13-2024 End: 12-13-2024 Patient encounter procedure 12/13/2024 8:40 AM EDT Office Visit [facility] [place] [address] [place] [address] Evita Novak MD [address] [facility] [place] [address] 6 mo follow up [facility] [place] Comment on above: 6 mo follow up Start: 09-15-2024 Covid-19 Vaccine () Covid-19 Vaccine () [facility] Start: 06-29-2024 Advance Directive Discussion Advance Directive Discussion [facility] Start: 06-29-2024 Medicare Advantage Annual Wellness Visit Medicare Advantage Annual Wellness Visit [facility] Start: 06-13-2024 End: 06-13-2024 Patient encounter procedure 06/13/2024 9:00 AM EST Office Visit [facility] [place] [address] [place], [place] [address] Evita Novak MD [address] [place] [address] Medicare Wellness [facility] [place] Comment on above: Medicare Wellness Start: 06-01-2024 Covid-19 Vaccine () Covid-19 Vaccine () [facility] Comment on above: Postponed from 02/27 (Declined at this time) Start: 06-01-2024 Hepatitis C Screening Hepatitis C [facility] Comment on above: Postponed from 01/24 (Declined at this time) Start: 06-01-2024 Hepatitis C screening Hepatitis C [facility] Comment on above: Postponed from 01/24 (Declined at this time) Start: 06-01-2024 RSV Vaccine (1 - 1-d ose 60+ series) RSV Vaccine (1 - 1-dose 60+ series) [facility] Comment on above: Postponed from 01/24 (Declined at this time) Start: 06-01-2024 Shingrix Vaccine (2 of 3) Shingrix Vaccine (2 of 3) [facility] Comment on above: Postponed from 09/05 (Declined at this time) Start: 04-18-2024 End: 04-18-2024 Patient encounter procedure 04/18/2024 11:10 AM EDT Office Visit OB/Gynecology [address] [place] [address] Juju Reilly MD [address] [place] [address] Punch biopsy of inner thigh and perineum OB/Gynecology Comment on above: Punch biopsy of inne r thigh and perineum Start: 03-27-2024 Mammography Mammogram Screening [facility] Start: 02-28-2024 Influenza vaccination Influenza Vacc ine (#1) [facility] Start: 01-09-2024 DIABETES SCREEN DIABETES SCREEN [facility] Start: 06-29-2023 Advance Directive Discussion Advance Directive Discussion [facility] Start: 06-01-2023 End: 08-31-2023 25-hydroxyvitamin D3 [Mass/volume] in Serum or Plasma VITAMIN D 25 HYDROXY Lab Routine Osteoporosis without current pathological fracture, unspecified osteoporosis type Expected: 06/01/2023, Expires: 08/31/2023 [facility] Work Phone: Comment on above: Expected: 06/01/2023 , Expires: 08/31/2023 Start: 06-01-2023 End: 08-31-2023 CBC panel - Blood by Automated count CBC Lab Routine Donor, kidney Medicare annual wellness visit, subsequent Expected: 06/01/2023, Expires: 08/31/2023 [facility] Work Phone: Comment on above: Expected: 06/01/2023 , Expires: 08/31/2023 Start: 06-01-2023 End: 08-31-2023 Comprehensive metabolic 2000 panel - Serum or Plasma COMP METABOLIC PANEL Lab Routine Osteoporosis without current pathological fracture, unspecified osteoporosis type Donor, kidney Hyperlipidemia, unspecified hyperlipidemia type Medicare annual wellness visit, subsequent Expected: 06/01/2023, Expires: 08/31/2023 [facility] Work Phone: Comment on above: Expected: 06/01/2023 , Expires: 08/31/2023 Start: 06-01-2023 End: 08-31-2023 Lipid 1996 panel - Serum or Plasma LIPID PANEL BASIC Lab Routine Hyperlipidemia, unspecified hyperlipidemia type Medicare annual wellness visit, subsequent Expected: 06/01/2023, Expires: 08/31/2023 [facility] Work Phone: Comment on above: Expected: 06/01/2023 , Expires: 08/31/2023 Start: 06-01-2023 End: 08-31-2023 Phosphate [Mass/volume] in Serum or Plasma PHOSPHORUS INORGANIC Lab Routine Osteoporosis without current pathological fracture, unspecified osteoporosis type Expected: 06/01/2023, Expires: 08/31/2023 [facility] Work Phone: Comment on above: Expected: 06/01/2023 , Expires: 08/31/2023 Start: 03-20-2023 COVID-19 VACCINE (6 - Pfizer series) COVID-19 VACCINE (6 - Pfizer series) [facility] Start: 02-27-2023 Covid-19 Vaccine () Covid-19 Vaccine () [facility] Start: 02-27-2023 Influenza vaccination C [facility] Start: 02-17-2023 Mammography MAMMOGRAM [facility] Start: 06-29-2022 ADVANCE DIRECTIVE DISCUSSION ADVANCE DIRECTIVE DISCUSSION [facility] Start: 06-29-2022 DEPRESSION ASSESSMENT DEPRESSION ASS ESSMENT [facility] Start: 02-27-2022 Influenza vaccination INFLUENZA (#1) [facility] Start: 02-17-2022 End: 04-19-2022 CBC W Auto Differential panel - Blood CBC + DIFF Lab Routine Well woman exam Expected: 02/17/2022, Expires: 04/19/2022 [facility] Work Phone: Comment on above: Expected: 02/17/2022 , Expires: 04/19/2022 Start: 02-17-2022 End: 04-19-2022 Comprehensive metabolic 2000 panel - Serum or Plasma COMP METABOLIC PANEL Lab Routine Well woman exam Expected: 02/17/2022, Expires: 04/19/2022 [facility] Work Phone: Comment on above: Expected: 02/17/2022 , Expires: 04/19/2022 Start: 02-17-2022 End: 04-19-2022 Lipid 1996 panel - Serum or Plasma LIPID PANEL BASIC Lab Routine Well woman exam Other hyperlipidemia Expected: 02/17/2022, Expires: 04/19/2022 [facility] Work Phone: Comment on above: Expected: 02/17/2022 , Expires: 04/19/2022 Start: 01-02-2022 Mammography MAMMOGRAM [facility] Start: 12-27-2021 PNEUMOCOCCAL: 65+ (2 - PCV) PNEUMOCOCCAL: 65+ (2 - PCV) [facility] Start: 06-29-2021 ADVANCE DIRECTIVE DISCUSSION ADVANCE DIRECTIVE DISCUSSION [facility] Start: 05-27-2018 Adult depression screening assessment DEPRESSION SCREENING [facility] Start: 09-06-2015 SHINGRIX VACCINE (2 of 3) SHINGRIX VACCINE (2 of 3) [facility] Start: 2015 RSV Vaccine (1 - 1-d ose 60+ series) RSV Vaccine (1 - 1-dose 60+ series) [facility] Start: 01-25-2000 COLOGUARD (FIT-DNA) COLOGUARD (FIT-D NA) [facility] Start: 01-25-[address] COLONOGRAPHY [facility] Start: 01-25-2000 FECAL OCCULT BLOOD FECAL OCCULT BLOO D [facility] Start: 01-25-2000 Screening for malign ant neoplasm of colon [facility] Start: 01-25-[address] [facility] Start: 1974 Urine microalbumin profile [facility] Start: 1973 Anxiety Screening Anxiety Screening [facility] Start: 1973 Depression Screening Depression Scre ening [facility] Start: 1973 HEPATITIS C SCREENING HEPATITIS C [facility] Start: 1973 Hepatitis C screening Hepatitis C [facility] End: 06-30-2024 BD DXA TRABECULAR BONE SCORE (TBS) BD DXA TRABECULAR BONE SCORE (TBS) Radiology Routine Osteoporosis without current pathological fracture, unspecified osteoporosis type 1 Occurrences starting 06/01/2023 until 06/30/2024 [facility] Work Phone: Comment on above: 1 Occurrences starti ng 06/01/2023 until 06/30/2024 BD DXA TRABECULAR ISIDRO NE SCORE (TBS) BD DXA TRABECULAR BONE SCORE (TBS) Radiology Routine Osteoporosis without current pathological fracture, unspecified osteoporosis type 06/01/2023 1:25 PM EST [facility] Work Phone: End: 02-19-2026 BD DXA TRABECULAR BONE SCORE (TBS) BD DXA TRABECULAR BONE SCORE (TBS) Radiology Routine Osteoporosis without current pathological fracture, unspecified osteoporosis type 1 Occurrences starting 01/20/2025 until 02/19/2026 [facility] Comment on above: 1 Occurrences starti ng 01/20/2025 until 02/19/2026 End: 04-30-2025 DBT Breast - bilateral screening MICHELLE SCREENING W TANIKA Radiology Routine Encounter for screening mammogram for breast cancer Dense breast tissue on mammogram, unspecified type 1 Occurrences starting 03/31/2024 until 04/30/2025 [facility] Work Phone: Comment on above: 1 Occurrences starti ng 03/31/2024 until 04/30/2025 End: 02-25-2026 DBT Breast - bilateral screening MICHELLE SCREENING W TANIKA Radiology Routine Encounter for screening mammogram for malignant neoplasm of breast 1 Occurrences starting 01/26/2025 until 02/25/2026 [facility] Work Phone: Comment on above: 1 Occurrences starti ng 01/26/2025 until 02/25/2026 End: 02-19-2026 DXA Skeletal system.axial Views for bone density DXA-AXIAL SKELETON Radiology Routine Osteoporosis without current pathological fracture, unspecified osteoporosis type 1 Occurrences starting 01/20/2025 until 02/19/2026 [facility] Comment on above: 1 Occurrences starti ng 01/20/2025 until 02/19/2026 End: 06-30-2024 DXA-AXIAL SKELETON DXA-AXIAL SKELETON Radiology Routine Osteoporosis without current pathological fracture, unspecified osteoporosis type 1 Occurrences starting 06/01/2023 until 06/30/2024 [facility] Work Phone: Comment on above: 1 Occurrences starti ng 06/01/2023 until 06/30/2024 DXA-AXIAL SKELETON DXA-AXIAL SKE LETON Radiology Routine Osteoporosis without current pathological fracture, unspecified osteoporosis type 06/01/2023 1:26 PM EST [facility] Work Phone: End: 03-21-2024 MICHELLE SCREENING MICHELLE SCREENING Radiology Routine Encounter for screening mammogram for breast cancer 1 Occurrences starting 02/20/2023 until 03/21/2024 [facility] Work Phone: Comment on above: 1 Occurrences starti ng 02/20/2023 until 03/21/2024 Patient Education ED Laceration, Hand: All Closures [facility] Work Phone: Patient referral [facility] Work Phone: End: 03-07-2023 Screening mammography bi 2-view breast inc cad MICHELLE SCREENING Radiology Routine Encounter for screening mammogram for breast cancer 1 Occurrences starting 02/05/2022 until 03/07/2023 [facility] Work Phone: Comment on above: 1 Occurrences starti ng 02/05/2022 until 03/07/2023 End: 03-19-2023 Screening mammography bi 2-view breast inc cad MICHELLE SCREENING Radiology Routine Encounter for screening mammogram for breast cancer 1 Occurrences starting 02/17/2022 until 03/19/2023 [facility] Work Phone: Comment on above: 1 Occurrences starti ng 02/17/2022 until 03/19/2023 End: 02-17-2022 Screening mammography bi 2-view breast inc cad [facility] Work Phone: Comment on above: 1 Occurrences starti ng 02/17/2022 until 02/17/2022 SURGICAL PATHOLOGY SURGICAL PATH OLOGY Lab Routine Skin lesion Ordered: 04/18/2024 [facility] Work Phone: Comment on above: Ordered: 04/18/2024 [facility] Immunizations Immunization Date Immunization Notes Care Provider Shante morin 04-08-2024 influenza virus vaccine, unspecified formulation Evita Novak MD Work Phone: [facility] 06-23-2023 COVID-19 vaccine, ag e 12+ yr (PFIZER-BIONTECH COMIRNATY) Screen [facility] 04-15-2023 influenza (HD-IIV4) vaccine, age 65+ yr, high dose, quadrivalent, PF (FLUZONE HIGH-DOSE) Tiara Rich INSULATION BOARD CALENDER OPERATORFÉLIX Work Phone: [facility] 04-15-2023 influenza virus vaccine, unspecified formulation Screen [facility] 11-17-2022 COVID-19 vaccine, ag e 12+ yr, bivalent (PFIZER-BIONTECH) Evita Novak MD Work Phone: [facility] 07-28-2022 pneumococcal (PCV20) vaccine, 20 valent (PREVNAR 20) Evita Novak MD Work Phone: [facility] Work Phone: 04-02-2022 influenza (HD-IIV4) vaccine, age 65+ yr, high dose, quadrivalent, PF (FLUZONE HIGH-DOSE) Evita Novak MD Work Phone: [facility] Work Phone: 04-02-2022 influenza virus vaccine, unspecified formulation Mammography Coordinator [facility] 03-07-2022 COVID-19 vaccine, ag e 12+ yr, bivalent (PFIZER-BIONTECH) Tiara Rich APRN.[facility] Work Phone: [facility] 03-07-2022 COVID-19 vaccine, ag e 5 yr - 11 yr, bivalent (PFIZER-BIONTECH) Evita Novak MD Work Phone: [facility] 10-21-2021 tetanus toxoid, redu rosenda diphtheria toxoid, and acellular pertussis vaccine, adsorbed [facility] 12-27-2020 pneumococcal polysaccharide vaccine, 23 valent Neel Stephen MD Work Phone: [facility] 04-07-2017 influenza, injectabl e, quadrivalent, contains preservative Neel Stephen MD Work Phone: [facility] Work Phone: 04-11-2016 influenza, injectabl e, quadrivalent, contains preservative Neel Stephen MD Work Phone: [facility] Work Phone: 07-12-2015 zoster vaccine, live Neel Gallego MD Work Phone: [facility] Work Phone: 04-04-2015 influenza, injectabl e, quadrivalent, contains preservative Neel Stephen MD Work Phone: [facility] Work Phone: Payers Date Payer Category Payer Medicare (Managed Care) [employer] [id number] 2022 Medicare [id number] 2020 Medicare [id number] 2020 Unknown MMO MMO TRADITIO NAL [id number] 2020-Present [phone] [address] [place] [address] Indemnity [id number] 2020 Unknown MMO MMO TRADITIO NAL [id number] 2020-Present [phone] [address] [place] [address] Indemnity [id number] 2019 Medicare MEDICARE MEDICAR E A AND B [id number] 2019-Present [phone] [address] [address] [place] [address] Medicare [id number] 2019 Medicare [id number] 2015 Unknown [id number] 1955 Unknown [id number] 1955 Unknown [id number] Self-pay SELF PAY INSURANCE [id number] Social History Date Type Detail Facility Start: 10-21-2021 Tobacco smoking stat us NHIS Unknown if ever smoked [facility] Work Phone: Start: 1955 Sex Assigned At Female [facility] Work Phone: Start: 04-04-2015 End: 02-17-2022 Tobacco smoking status NHIS Never smoked tobacco [facility] Work Phone: Start: 04-04-2015 End: 02-17-2022 Tobacco use and exposure Smokeless tobacco non-user [facility] Work Phone: Start: 10-30-2021 End: 01-26-2025 Alcohol intake Current drinker of alcohol (finding) [facility] Start: 10-30-2021 End: 06-01-2023 Alcohol intake [facility] Start: 12-22-2019 End: 01-09-2020 History SDOH Alcohol Frequency 5 [facility] Start: 12-22-2019 End: 01-09-2020 History SDOH Alcohol Std Drinks 1 [facility] Start: 12-22-2019 History SDOH Social Connections Get Together 3 [facility] Start: 12-22-2019 History SDOH Physica l Activity DPW 7 [facility] Start: 12-22-2019 End: 01-09-2020 History SDOH Stress 2 [facility] Start: 12-21-2019 Education 17 [facility] Start: 1955 Sex Assigned At Not on file [facility] Start: 10-20-2021 End: 02-17-2022 Exposure to SARS-CoV-2 (event) Not sure [facility] Work Phone: Start: 12-21-2019 End: 06-01-2023 Social connection and isolation panel [facility] Frequency of Communi cation with Friends and Family Not on file [facility] Do you belong to any clubs or organizations such as caodaism groups, unions, fraternal or athletic groups, or school groups? Yes [facility] Are you now , , , , never or living with a partner? [facility] How often to you hav e a drink containing alcohol? 4 or more times a week [facility] How many standard dr inks containing alcohol do you have on a typical day? 1 or 2 [facility] How often do you hav e 6 or more drinks on 1 occasion? Never [facility] Do you feel stress - tense, restless, nervous, or anxious, or unable to sleep at night because your mind is troubled all the time - these days [OSQ] Only a little [facility] (I/We) worried didier (my/our) food would run out before (I/we) got money to buy more. Never true [facility] In the past 12 month s, was there a time when you were not able to pay the mortgage or rent on time? No [facility] Are you now , , , , never or living with a partner? [facility] Do you feel stress - tense, restless, nervous, or anxious, or unable to sleep at night because your mind is troubled all the time - these days [OSQ] Not at all [facility] Functional Status Date Assessment Result Facility 08-14-2016 Are you deaf, or do you have serious difficulty hearing No 08/14/2016 1:05 PM Rosario Feliz, YASH No [facility] 08-14-2016 Are you blind, or do you have serious difficulty seeing, even when wearing glasses No 08/14/2016 1:05 PM Rosario Feliz, YASH No [facility] 08-14-2016 Do you have serious difficulty walking or climbing stairs No 08/14/2016 1:05 PM Rosario Feliz, YASH No [facility] 08-14-2016 Do you have difficul ty dressing or bathing No 08/14/2016 1:05 PM Rosario Feliz, RN No [facility] 08-14-2016 Because of a physica l, mental, or emotional condition, do you have difficulty doing errands alone such as visiting a physician's office or shopping No 08/14/2016 1:05 PM Rosario Feliz, RN No [facility] Mental Status Date Assessment Result Facility 08-14-2016 Because of a physica l, mental, or emotional condition, do you have serious difficulty concentrating, remembering, or making decisions No 08/14/2016 1:05 PM Rosario Feliz RN No [facility] Clinical Notes 02-09-2018 to 04-03-2025 Evita Novak MD - 01/26/2025 12:23 PM EDTPatient InstructionsTelephone Encounter - Kristen Haque RN - 01/23/2025 12:50 PM EDTTelephone Encounter - Kristen Haque RN - 01/23/2025 12:50 PM EDT Note Date & Type Note Facility 04-03-2025 Note HNO ID: [id number] Author: KENNETH JACKSON Mammo Tech Service: ? Author Type: Electronic Calibration Technician Type: Progress Notes Filed: 04/03/2025 08:25 Note Text: Radiology Service Progress Note PATIENT NAME: Francisca Cooper DATE OF SERVICE: April 03, 2025 TIME: 8:24 AM PATIENT IDENTITY VERIFICATION COMPLETED USING TWO (2) IDENTIFIERS: Name and Date of confirmed by patient verbally. FALL SCREENING: Has the patient had 2 falls in the last year or 1 fall with injury or currently using an Ambulatory Assistive Device (Walker, Cane, Wheelchair, Crutches, etc.)? No PATIENT GENDER DATA: Assigned female at . status: : No status: NO. PATIENT RELEVANT IMPLANT DATA REVIEWED: Not Applicable PATIENT PRESENTS WITH AN IMPLANTABLE OR ATTACHED DEPENDENCY DIRECTOR: No RADIOLOGY DEPARTMENT: Mammography PERIPHERAL IV DATA: Not applicable SIGNED BY: Clara Garza April 03, 2025 8:24 AM [facility] 01-26-2025 Note HNO ID: [id number] Author: EVITA NOVAK MD Service: ? Author Type: Physician Type: Progress Notes Filed: 01/26/2025 12:31 Note Text: Reason for Visit Follow up HPI Francisca Cooper is a 70-year-old female with a history of Dupuytren's contracture and osteoporosis, presenting for follow-up. 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 She consulted Dr. Up at [facility], who referred her to Dr. Herrera at [facility]. On 09/13, Dr. Herrera administered a Zytrin injection, which temporarily straightened the finger. Despite wearing a splint nightly until April, the contracture has recurred. She is considering low-dose radiation therapy at [facility] and may request a referral in 6-12 months. She denies any issues with her wedding rings due to weight gain, attributing difficulty wearing them to Dupuytren's contracture and aging. Francisca also has a history of osteoporosis and was advised to take Fosamax but declined based on a friend's recommendation. She has scheduled a bone density scan for 04/27 and inquires if she can wait until May for labs. She is currently taking vitamin D and B complex and asks if she should resume vitamin C supplementation. She reports a 10 lb weight gain over the past year, currently weighing 150 lbs, and expresses a desire to lose weight. She attributes the weight gain to decreased physical activity, particularly pickleball, to protect her knee. She continues to walk, swim 35-40 laps daily, and ride a stationary bike. She denies increased fatigue but notes an easier time napping in the afternoon, which she attributes to aging. Francisca has a family history of hip fractures, with her mother experiencing a fracture due to prednisone-induced necrosis. She denies any history of prednisone use. She is also due for a mammogram and cervical cancer screening and inquires about the need for Shingrix vaccination. She has a living will and advance directives in place. Social History Tobacco Use Smoking status: Never Smokeless tobacco: Never Vaping Use Vaping status: Never Used Substance Use Topics Alcohol use: Yes Alcohol/week: 7.0 standard drinks of alcohol Types: 7 Glasses of Wine (5oz) per week Drug use: No Past medical history, appointments, medications, allergies reviewed. Pertinent Lab/Diagnostic Studies are reviewed and discussed today Current Outpatient Medications: cholecalciferol, vitamin D3, (VITAMIN D3 ORAL) vitamin B complex (B COMPLEX ORAL) ascorbic acid (VITAMIN C ORAL) alendronate (FOSAMAX) 70 mg tablet Health Maintenance Hepatitis C Screening Shingrix Vaccine(2 of 3) Advance Directive Discussion Medicare Advantage Annual Wellness Visit Cervical Cancer Screening Mammogram Screening@ Review Of Systems Constitutional: (+) weight gain, (-) fatigue Musculoskeletal: (+) finger contracture Physical Exam BP 111/72 Pulse 87 Resp 16 Wt 69 kg (152 lb 3.2 oz) BMI 22.97 kg/m? GENERAL: NAD, alert and oriented. SKIN: Unremarkable, no rash or skin lesions. HEAD: Normocephalic. EYES: PERRLA, EOMI, conjunctiva clear. LUNGS: Clear to auscultation bilaterally, no wheezes/rhonchi/rales. HEART: Regular rate and rhythm, no murmurs. No ectopy. EXTREMITIES: Normal, no deformities, no skin discoloration, no edema. NEURO: Awake, alert and oriented x3, cranial nerves II-XII grossly intact, normal gait, no involuntary motions. Assessment and Plan 1. Other osteoporosis, unspecified pathological fracture presence (M81.8) Patient has a higher risk of fracture, 5% in the hips and 21% for any fracture. Currently taking Vitamin D daily. Patient is hesitant to start Fosamax due to concerns about side effects. - Scheduled bone density scan for April 27. - Will check Vitamin D levels. - Provided education on calcium intake, aiming for 1200 mg daily through diet or supplements. - Discussed alternative treatments such as Reclast and Prolia. - Will reassess treatment options after bone density results in May. 2. Dupuytren's contracture (M72.0) Diagnosed by Dr. Herrera at [facility]. Patient previously received a Zytrin injection with temporary improvement. Contracture is recurring, affecting ability to play piano. - Considering surgical intervention. - Discussed potential referral for low-dose radiation therapy at [facility] in 6 months to a year. 3. Encounter for screening mammogram for malignant neoplasm of breast (Z12.31) Due for mammogram this year. - Scheduled mammogram with tomography in March. 4. Screening for depression (Z13.31) Encounter for screening examination for other mental health and behavioral disorders (Z13.39) Patient is engaged in positive activities and reports feeling well. No signs of depression or mental health disorders observed. 5 (more content not included)... [facility] 01-26-2025 History of Presen t illness Narrative Reason for Visit Follow up HPI Francisca Epperson Kenneth is a 70-year-old female with a history of Dupuytren's contracture and osteoporosis, presenting for follow-up. 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 She consulted Dr. Up at [facility], who referred her to Dr. Herrera at [facility]. On 09/13, Dr. Herrera administered a Zytrin injection, which temporarily straightened the finger. Despite wearing a splint nightly until April, the contracture has recurred. She is considering low-dose radiation therapy at [facility] and may request a referral in 6-12 months. She denies any issues with her wedding rings due to weight gain, attributing difficulty wearing them to Dupuytren's contracture and aging. Francisca also has a history of osteoporosis and was advised to take Fosamax but declined based on a friend's recommendation. She has scheduled a bone density scan for 04/27 and inquires if she can wait until May for labs. She is currently taking vitamin D and B complex and asks if she should resume vitamin C supplementation. She reports a 10 lb weight gain over the past year, currently weighing 150 lbs, and expresses a desire to lose weight. She attributes the weight gain to decreased physical activity, particularly pickleball, to protect her knee. She continues to walk, swim 35-40 laps daily, and ride a stationary bike. She denies increased fatigue but notes an easier time napping in the afternoon, which she attributes to aging. Francisca has a family history of hip fractures, with her mother experiencing a fracture due to prednisone-induced necrosis. She denies any history of prednisone use. She is also due for a mammogram and cervical cancer screening and inquires about the need for Shingrix vaccination. She has a living will and advance directives in place. Social History Tobacco Use Smoking status: Never Smokeless tobacco: Never Vaping Use Vaping status: Never Used Substance Use Topics Alcohol use: Yes Alcohol/week: 7.0 standard drinks of alcohol Types: 7 Glasses of Wine (5oz) per week Drug use: No Past medical history, appointments, medications, allergies reviewed. Pertinent Lab/Diagnostic Studies are reviewed and discussed today Current Outpatient Medications: cholecalciferol, vitamin D3, (VITAMIN D3 ORAL) vitamin B complex (B COMPLEX ORAL) ascorbic acid (VITAMIN C ORAL) alendronate (FOSAMAX) 70 mg tablet Health Maintenance Hepatitis C Screening Shingrix Vaccine(2 of 3) Advance Directive Discussion Medicare Advantage Annual Wellness Visit Cervical Cancer Screening Mammogram Screening@ Review Of Systems Constitutional: (+) weight gain, (-) fatigue Musculoskeletal: (+) finger contracture Physical Exam BP 111/72 Pulse 87 Resp 16 Wt 69 kg (152 lb 3.2 oz) BMI 22.97 kg/m GENERAL: NAD, alert and oriented. SKIN: Unremarkable, no rash or skin lesions. HEAD: Normocephalic. EYES: PERRLA, EOMI, conjunctiva clear. LUNGS: Clear to auscultation bilaterally, no wheezes/rhonchi/rales. HEART: Regular rate and rhythm, no murmurs. No ectopy. EXTREMITIES: Normal, no deformities, no skin discoloration, no edema. NEURO: Awake, alert and oriented x3, cranial nerves II-XII grossly intact, normal gait, no involuntary motions. Assessment and Plan 1. Other osteoporosis, unspecified pathological fracture presence (M81.8) Patient has a higher risk of fracture, 5% in the hips and 21% for any fracture. Currently taking Vitamin D daily. Patient is hesitant to start Fosamax due to concerns about side effects. - Scheduled bone density scan for April 27. - Will check Vitamin D levels. - Provided education on calcium intake, aiming for 1200 mg daily through diet or supplements. - Discussed alternative treatments such as Reclast and Prolia. - Will reassess treatment options after bone density results in May. 2. Dupuytren's contracture (M72.0) Diagnosed by Dr. Herrera at [facility]. Patient previously received a Zytrin injection with temporary improvement. Contracture is recurring, affecting ability to play piano. - Considering surgical intervention. - Discussed potential referral for low-dose radiation therapy at [facility] in 6 months to a year. 3. Encounter for screening mammogram for malignant neoplasm of breast (Z12.31) Due for mammogram this year. - Scheduled mammogram with tomography in March. 4. Screening for depression (Z13.31) Encounter for screening examination for other mental health and behavioral disorders (Z13.39) Patient is engaged in positive activities and reports feeling well. No signs of depression or mental health disorders observed. 5. Special screening examination for viral disease (Z11.59) Hepatitis C screening not documented in current records. - Ordered Hepatitis C screening to be done before May appointment. Voice recognition software was used to compose this office note. Please excuse any unintended typographical errors. Recording using [employer] software for draft documentation of the visit was discussed with the patient/authorized telecommunications sales representative; all questions welcomed and answered. Patient/authorized telecommunications sales representative agreed to proceed Evita Novak MD documented in this encounter [facility] 01-26-2025 Instructions Evita Novak MD - 01/26/2025 8:52 AM EDT We discussed your Dupuytren's contracture: - You previously received a Zytrin injection, which temporarily straightened your finger, but the contracture has returned despite nightly splint use. - You mentioned a [facility] doctor offering low-dose radiation treatment for Dupuytren's. If you decide to pursue this, let me know, and I can provide a referral. 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 We discussed your osteoporosis: - You are due for a bone density test, which is scheduled for April 27. - Continue taking Vitamin D daily as prescribed. This is beneficial for bone health and may also have protective effects against dementia. - Aim to consume 1,200 mg of calcium daily through food sources (e.g., yogurt, salmon, etc.). I will provide a handout with calcium-rich food options. If your dietary intake is insufficient, you may consider calcium supplements such as calcium citrate or calcium carbonate (e.g., Caltrate petites or chews). - You have chosen not to start Fosamax at this time. Other options, such as Prolia injections or Reclast IV, are available if needed in the future. We will reassess after your bone density results in May. We discussed your weight and activity level: - Your current weight is 152 lbs, and your BMI is within a healthy range. 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 - Continue your regular exercise routine, including swimming, walking, and occasional pickleball. Be cautious with pickleball to avoid knee injuries. - Protect your knee by moderating high-impact activities. We discussed your vitamin regimen: - Continue taking Vitamin D and Vitamin B complex as previously recommended. - You do not need to add Vitamin C unless desired. We discussed your upcoming preventive care: - You are due for a mammogram this year. You can schedule this for March, and I recommend including tomography. - You are also due for cervical cancer screening (Pap smear) this year. This will be addressed during your next gynecology visit with Dr. Reilly. - I have added a hepatitis C screening to your labs for May, as this has not been documented previously. We discussed your vaccinations: - You received the original shingles vaccine but did not complete the Shingrix series. If you decide to pursue this, let me know. Additional notes: - Your blood pressure is excellent. - Continue your current lifestyle, which includes regular exercise, social engagement, and a healthy diet. These are all contributing positively to your overall health and well-being. Follow-up: - Your next appointment is in May. Please complete your labs a couple of weeks prior to this visit. - Let me know if you have any new concerns or if you decide to pursue additional treatments for Dupuytren's contracture or osteoporosis. documented in this encounter [facility] 01-23-2025 Telephone encounter Note Bone density scheduled. Kristen Haque RN [facility] 01-23-2025 Miscellaneous Notes Bone density scheduled. Kristen Haque RN Patient notified, Please assist in scheduling bone density. Please let her know that labs are ordered. So has BMD. Regards, Evita Novak MD Pt called and reports she has an appointment on 01/27/25. She though this appointment was scheduled because she was going to start taking Fosamax. Pt states she never started taking this medication. She wanted to know if she still needed this appointment or if she could cancel it and just keep her yearly appointment. The Pt want to know if provider could put in lab orders before her appointment so she could discuss them at her appointment. Then Pt states she is supposed to have her bone density scan done this year and was asking about having that put in. Please call Pt back and let her know. Kristen Haque RN documented in this encounter [facility] 01-20-2025 Telephone encounter Note Patient notified, Please assist in scheduling bone density. [facility] 01-20-2025 Telephone encounter Note Please let her know that labs are ordered. So has BMD. Regards, Evita Novak MD [facility] 01-20-2025 Telephone encounter Note Pt called and reports she has an appointment on 01/27/25. She though this appointment was scheduled because she was going to start taking Fosamax. Pt states she never started taking this medication. She wanted to know if she still needed this appointment or if she could cancel it and just keep her yearly appointment. The Pt want to know if provider could put in lab orders before her appointment so she could discuss them at her appointment. Then Pt states she is supposed to have her bone density scan done this year and was asking about having that put in. Please call Pt back and let her know. Kristen Haque, RN [facility] 10-11-2024 Note HNO ID: [id number] Author: GRAEME KIM MA Service: ? Author Type: Structural Engineering Project Manager Type: Progress Notes Filed: 10/11/2024 10:17 Note Text: POPULATION HEALTH NAVIGATION OUTREACH Action/FYI Spoke to patient via [employer] Scheduled 05/[address] Novak. Noted to address due care gaps Reason for Outreach Returned Call/MyChart Patient Contacted: Spoke to patient/parent/or legal guardian Patient identified by name and date of : Yes Returned call/MyChart actions taken: Patient scheduled/pended orders: Medicare Annual Wellness Visit 12/13/2024 in [facility] with EVITA NOVAK - 6 mo follow up 06/01/2025 in [facility] with EVITA NOVAK - Annual Wellness, Please address due care gaps Navigation Signature: Graeme Kim MA October 11, 2024 10:16 AM [facility] 10-11-2024 History of Presen t illness Narrative POPULATION HEALTH NAVIGATION OUTREACH Action/FYI Spoke to patient via [employer] Scheduled 05/[address] Novak. Noted to address due care gaps Reason for Outreach Returned Call/MyChart Patient Contacted: Spoke to patient/parent/or legal guardian Patient identified by name and date of : Yes Returned call/MyChart actions taken: Patient scheduled/pended orders: Medicare Annual Wellness Visit 12/13/2024 in [facility] with EVITA NOVAK - 6 mo follow up 06/01/2025 in [facility] with EVITA NOVAK - Annual Wellness, Please address due care gaps Navigation Signature: Graeme Kim MA October 11, 2024 10:16 AM POPULATION HEALTH NAVIGATION OUTREACH Action/FYI Patient is on Zero HCC List - [place] PCSA list for below and needs appointment to address: Depression Screening Anxiety Screening Hepatitis C Screening Shingrix Vaccine(2 of 3) Advance Directive Discussion Covid-19 Vaccine() Cervical Cancer Screening Hemoglobin A1C (%) Date Value 06/13/2024 5.7 Patient due for: Medicare Annual Wellness Visit MyChart Active: Yes Left message for patient to call back. Sent [employer] message. HCC: No Last OV: AWV Next OV: OV Reason for Outreach Care Gap/HCC or Scheduling Wellness Visits Care Gaps due: Medicare Annual Wellness Visit Patient Contacted: Unable or unnecessary to reach patient: Left message [employer] message sent Navigation Signature: Graeme Kim MA October 11, 2024 7:52 AM documented in this encounter [facility] 10-11-2024 Note HNO ID: [id number] Author: GRAEME KIM MA Service: ? Author Type: Structural Engineering Project Manager Type: Progress Notes Filed: 10/11/2024 08:36 Note Text: POPULATION HEALTH NAVIGATION OUTREACH Action/FYI Patient is on Zero HCC List - [place] PCSA list for below and needs appointment to address: Depression Screening Anxiety Screening Hepatitis C Screening Shingrix Vaccine(2 of 3) Advance Directive Discussion Covid-19 Vaccine( season) Cervical Cancer Screening Hemoglobin A1C (%) Date Value 06/13/2024 5.7 Patient due for: Medicare Annual Wellness Visit MyChart Active: Yes Left message for patient to call back. Sent [employer] message. HCC: No Last OV: AWV Next OV: OV Reason for Outreach Care Gap/HCC or Scheduling Wellness Visits Care Gaps due: Medicare Annual Wellness Visit Patient Contacted: Unable or unnecessary to reach patient: Left message [employer] message sent Navigation Signature: Graeme Kim MA October 11, 2024 7:52 AM [facility] 10-11-2024 Note Patient Outreach (GEN TNAV) FRANCISCA COOPER ([id number]) 1955 F Date Time Provider Department 10/11/24 GRAEME KIM [place] During your visit today, we recorded the following information about you: Graeme Kim MA 10/11/2024 8:36 AM Signed POPULATION HEALTH NAVIGATION OUTREACH Action/FYI Patient is on Zero HCC List - [place] PCSA list for below and needs appointment to address: Depression Screening Anxiety Screening Hepatitis C Screening Shingrix Vaccine(2 of 3) Advance Directive Discussion Covid-19 Vaccine( season) Cervical Cancer Screening Hemoglobin A1C (%) Date Value 06/13/2024 5.7 Patient due for: Medicare Annual Wellness Visit MyChart Active: Yes Left message for patient to call back. Sent [employer] message. HCC: No Last OV: AWV Next OV: OV Reason for Outreach Care Gap/HCC or Scheduling Wellness Visits Care Gaps due: Medicare Annual Wellness Visit Patient Contacted: Unable or unnecessary to reach patient: Left message [employer] message sent Navigation Signature: Graeme Kim MA October 11, 2024 7:52 AM Graeme Kim MA 10/11/2024 10:17 AM Signed POPULATION HEALTH NAVIGATION OUTREACH Action/FYI Spoke to patient via [employer]. Scheduled 05/[address] Novak. Noted to address due care gaps Reason for Outreach Returned Call/MyChart Patient Contacted: Spoke to patient/parent/or legal guardian Patient identified by name and date of : Yes Returned call/MyChart actions taken: Patient scheduled/pended orders: Medicare Annual Wellness Visit 12/13/2024 in [facility] with EVITA NOVAK - 6 mo follow up 06/01/2025 in [facility] with EVITA NOVAK - Annual Wellness, Please address due care gaps Navigation Signature: Graeme Kim MA October 11, 2024 10:16 AM Allergies As of Date: 10/11/2024 Noted Allergy Reaction IBUPROFEN 02/06/2016 15 - Contraindication-Medical [place]* Date Reviewed: 06/13/2024 Reviewed by: Zo Chavez MA - Fully Assessed Reason for Visit: Population Health Navigation Outreach [3910] Cmt: Zero HCC List - [place] PCSA Prescriptions as of 10/11/2024 - ascorbic acid (VITAMIN C ORAL) Take 1 capsule by mouth once daily. - alendronate (FOSAMAX) 70 mg tablet Take 1 tablet by mouth one time a week. in the AM with glass of water on empty stomach. Do not take anything else by mouth or lie down for 30 min - cholecalciferol, vitamin D3, (VITAMIN D3 ORAL) Take by mouth. - vitamin B complex (B COMPLEX ORAL) Take by mouth. 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 Author Type: Physician Type: Progress Notes Filed: 06/13/2024 15:29 Note Text: Francisca Cooper is a 69 year old female here for a Medicare wellness visit. Medicare Health Risk Assessment General Health Excellent Exercise: Minutes/Day 40 min Exercise: Days/Week 7 days Alcohol: Daily Use 4 or more times a week Alcohol: Drinks/Day 1 or 2 Alcohol: 6 or more drinks Never Feel off balance No Concerns: Teeth/Dentures No Concerns: Sexual function No Troubled by feelings None of the above Frequency: Eating healthy diet Nearly every day ADLs requiring help None of the above Safety precautions in home/vehicle Yes Smoke, vape, chews tobacco No Difficulty hearing Yes, I wear a hearing aid Difficulty seeing No Current Providers Specialists: I have reviewed specialist-related care of the patient in the medical record. Medical/Family history review Reviewed and updated problem list, medical/surgical/family/social history, medications, and allergies. Opioid use review Opioid Medications (last 90 days) No data to display Anxiety/Depression screening PHQ-9 Score: 0. SADAF-7 Score: 0. Recommendation: no further intervention at this time Cognitive screening Mini Cog Score: 5 Cognitive screening reviewed and No further action needed (score 3-5). Functional Observation Was the patient's Timed Up AND Go test unsteady or >= 12 seconds? No Advance Care Planning Surrogate decision maker and/or advance care plan documented Measurements BP 108/70 Pulse 78 Resp 16 Wt 68.9 kg (152 lb) BMI 22.94 kg/m? Vision Screening: Follows with optometry/ophthalmology Assessment/Plan Medicare annual wellness visit, subsequent (Z00.00) - Counseled on healthy diet and regular exercise - Fall avoidance information provided - Personalized prevention plan provided Reason for Visit Patient presents with: Medicare Wellness Exam Francisca Cooper is a 69 year old female who presents here today for Above Complaints.. Health Maintenance Depression Screening Anxiety Screening Hepatitis C Screening Shingrix Vaccine(2 of 3) Advance Directive Discussion HPI Has osteoporosis, in the left hip. She took actonel at one point. She was given that in her 40's. She went into menopause. She is wiling to take fosamax , exercise and take enough of calcium. She has been a little tired and fatigued recently and would like to get investigated. No problem-specific Assessment AND Plan notes found for this encounter. PAST MEDICAL HISTORY Diagnosis Date Donor, kidney Osteopenia PAST SURGICAL HISTORY Procedure Laterality Date EXC LESION TDN SHTH/JT CAPSL HAND/FNGR Left 10/01/2017 Left thumb excision of digital mucous cyst HERNIA REPAIR W/MESH 07/23/2015 IMPLANT MESH OPN HERNIA RPR/DEBRIDEMENT CLOSURE 07/23/2015 LAPAROSCOPY REPAIR INCISIONAL HERNIA REDUCIBLE 07/23/2015 REMOVAL OF KIDNEY 02/01/2006 REMOVAL OF SKIN LESION 02/06/2016 lipoma upper back REMOVAL SKIN LESION 2.1-3.0 CM scalp in 4th grade S MENISCAL REPAIR OUT/IN Right 2019 TONSILLECTOMY PRIMARY/SECONDARY Tonsillectomy FAMILY HISTORY Problem Relation Age of Onset Cancer Mother leukemia Stroke Father Cancer Brother smoker Social History Tobacco Use Smoking status: Never Smokeless tobacco: Never Vaping Use Vaping status: Never Used Substance Use Topics Alcohol use: Yes Alcohol/week: 7.0 standard drinks of alcohol Types: 7 Glasses of Wine (5oz) per week Drug use: No Past medical history, appointments, medications, allergies reviewed. Pertinent Lab/Diagnostic Studies are reviewed and discussed today Current Outpatient Medications: ascorbic acid (VITAMIN C ORAL) cholecalciferol, vitamin D3, (VITAMIN D3 ORAL) vitamin B complex (B COMPLEX ORAL) hydrocortisone 2.5 % cream Review of Systems CONSTITUTIONAL: No fevers, chills night sweats, unintended weight loss CARDIOVASCULAR: No chest pain, dyspnea, palpitations, orthopnea, PND, ankle edema. PULM: No dyspnea, unexplained cough. GI: No dysphagia/odynophagia, problematic reflux, constipation, diarrhea, changes in stool habits, hematochezia, melena. : No new urinary complaints, including dysuria, gross hematuria or pyuria. NEURO: No new balance problems, peripheral weakness/paresthesias or numbness of concern. Physical Exam BP 108/70 Pulse 78 Resp 16 Wt 68.9 kg (152 lb) BMI 22.94 kg/m? General appearance: Well appearing, alert, in no acute distress, well nourished. Skin: Skin color, texture, turgor normal, no suspicious rashes or lesions Head: Normocephalic, no masses, lesions, tenderness or abnormalities Eyes: Anicteric sclera. Pupils are equally round and reactive to light. Extraocular movements are intact. Lungs: Lungs clear to auscultation. No wheezing, rhonchi, rales Heart: RRR without murmur, gallop, or rubs. Extremities: No deformities, edema, skin discolo (more content not included)... [facility] 06-13-2024 History of Presen t illness Narrative Images from the original note were not included. Francisca Cooper is a 69 year old female here for a Medicare wellness visit. Medicare Health Risk Assessment General Health Excellent Exercise: Minutes/Day 40 min Exercise: Days/Week 7 days Alcohol: Daily Use 4 or more times a week Alcohol: Drinks/Day 1 or 2 Alcohol: 6 or more drinks Never Feel off balance No Concerns: Teeth/Dentures No Concerns: Sexual function No Troubled by feelings None of the above Frequency: Eating healthy diet Nearly every day ADLs requiring help None of the above Safety precautions in home/vehicle Yes Smoke, vape, chews tobacco No Difficulty hearing Yes, I wear a hearing aid Difficulty seeing No Current Providers Specialists: I have reviewed specialist-related care of the patient in the medical record. Medical/Family history review Reviewed and updated problem list, medical/surgical/family/social history, medications, and allergies. Opioid use review Opioid Medications (last 90 days) No data to display Anxiety/Depression screening PHQ-9 Score: 0. SADAF-7 Score: 0. Recommendation: no further intervention at this time Cognitive screening Mini Cog Score: 5 Cognitive screening reviewed and No further action needed (score 3-5). Functional Observation Was the patient's Timed Up & Go test unsteady or >= 12 seconds? No Advance Care Planning Surrogate decision maker and/or advance care plan documented Measurements BP 108/70 Pulse 78 Resp 16 Wt 68.9 kg (152 lb) BMI 22.94 kg/m Vision Screening: Follows with optometry/ophthalmology Assessment/Plan Medicare annual wellness visit, subsequent (Z00.00) - Counseled on healthy diet and regular exercise - Fall avoidance information provided - Personalized prevention plan provided Reason for Visit Patient presents with: Medicare Wellness Exam Francisca Cooper is a 69 year old female who presents here today for Above Complaints.. Health Maintenance Depression Screening Anxiety Screening Hepatitis C Screening Shingrix Vaccine(2 of 3) Advance Directive Discussion HPI Has osteoporosis, in the left hip. She took actonel at one point. She was given that in her 40's. She went into menopause. She is wiling to take fosamax , exercise and take enough of calcium. She has been a little tired and fatigued recently and would like to get investigated. No problem-specific Assessment & Plan notes found for this encounter. PAST MEDICAL HISTORY Diagnosis Date Donor, kidney Osteopenia PAST SURGICAL HISTORY Procedure Laterality Date EXC LESION TDN SHTH/JT CAPSL HAND/FNGR Left 10/01/2017 Left thumb excision of digital mucous cyst HERNIA REPAIR W/MESH 07/23/2015 IMPLANT MESH OPN HERNIA RPR/DEBRIDEMENT CLOSURE 07/23/2015 LAPAROSCOPY REPAIR INCISIONAL HERNIA REDUCIBLE 07/23/2015 REMOVAL OF KIDNEY 02/01/2006 REMOVAL OF SKIN LESION 02/06/2016 lipoma upper back REMOVAL SKIN LESION 2.1-3.0 CM scalp in 4th grade S MENISCAL REPAIR OUT/IN Right 2019 TONSILLECTOMY PRIMARY/SECONDARY <AGE 12 Tonsillectomy FAMILY HISTORY Problem Relation Age of Onset Cancer Mother leukemia Stroke Father Cancer Brother smoker Social History Tobacco Use Smoking status: Never Smokeless tobacco: Never Vaping Use Vaping status: Never Used Substance Use Topics Alcohol use: Yes Alcohol/week: 7.0 standard drinks of alcohol Types: 7 Glasses of Wine (5oz) per week Drug use: No Past medical history, appointments, medications, allergies reviewed. Pertinent Lab/Diagnostic Studies are reviewed and discussed today Current Outpatient Medications: ascorbic acid (VITAMIN C ORAL) cholecalciferol, vitamin D3, (VITAMIN D3 ORAL) vitamin B complex (B COMPLEX ORAL) hydrocortisone 2.5 % cream Review of Systems CONSTITUTIONAL: No fevers, chills night sweats, unintended weight loss CARDIOVASCULAR: No chest pain, dyspnea, palpitations, orthopnea, PND, ankle edema. PULM: No dyspnea, unexplained cough. GI: No dysphagia/odynophagia, problematic reflux, constipation, diarrhea, changes in stool habits, hematochezia, melena. : No new urinary complaints, including dysuria, gross hematuria or pyuria. NEURO: No new balance problems, peripheral weakness/paresthesias or numbness of concern. Physical Exam BP 108/70 Pulse 78 Resp 16 Wt 68.9 kg (152 lb) BMI 22.94 kg/m General appearance: Well appearing, alert, in no acute distress, well nourished. Skin: Skin color, texture, turgor normal, no suspicious rashes or lesions Head: Normocephalic, no masses, lesions, tenderness or abnormalities Eyes: Anicteric sclera. Pupils are equally round and reactive to light. Extraocular movements are intact. Lungs: Lungs clear to auscultation. No wheezing, rhonchi, rales Heart: RRR without murmur, gallop, or rubs. Extremities: No deformities, edema, skin discoloration, clubbing or cyanosis. Good capillary refill. ASSESSMENT/PLAN: 1. Medicare annual wellness visit, subsequent - ICD9: V70.0, ICD10: Z00.00 (primary diagnosis) - Counseled on healthy diet and regular exercise 2. Vitamin B12 deficiency - ICD9: 266.2, ICD10: E53.8 - VITAMIN B12 3. Hyperlipidemia, mixed - ICD9: 272.2, ICD10: E78.2 - Controlled - Counseled on healthy diet and regular exercise - LIPID PANEL BASIC - COMPLETE BLOOD COUNT AND DIFFERENTIAL - COMPREHENSIVE METABOLIC PANEL 4. Prediabetes - ICD9: 790.29, ICD10: R73.03 - HEMOGLOBIN A1C 5. Vitamin D deficiency - ICD9: 268.9, ICD10: E55.9 - VITAMIN D 25 HYDROXY 6. Osteoporosis, unspecified osteoporosis type, unspecified pathological fracture presence - ICD9: 733.00, ICD10: M81.0 - Reviewed the need for Calcium and Vitamin D supplements and weight bearing exercise as tolerated Evita Novak MD documented in this encounter [facility] 04-18-2024 Note HNO ID: [id number] Author: JUJU REILLY MD Service: ? Author Type: Physician Type: Progress Notes Filed: 04/18/2024 13:12 Note Text: Grey Percher offered: Patient declines. Francisca Cooper is a 69 year old female who presents today for a vulvar biopsy. Indication: new skin lesion. UNIVERSAL PROTOCOL / SAFETY CHECKLIST Procedure to be Performed: Punch Biopsy of inner thigh and perineum Sign In: A Moment of CARE was completed. Personnel directly involved with the procedure wore the appropriate PPE (Personal Protective Equipment). Patient/Surrogate Stated/Verified: PATIENT VERIFIED(optional for EMERGENT procedures): Patient name, Date of , Relevant allergies, and The intended procedure Time Out Communication: Intended patient and procedure match the source documents. Consent documented and matches the intended procedure. Sign Out: SIGN OUT (optional for EMERGENT procedures): All specimen containers correctly labeled. All instruments, equipment, possible retained foreign bodies accounted for. Post-procedure follow-up management communicated and Plan of Care Visit completed when applicable. PROCEDURE NOTE: GROSS LESIONS: Yes, two skin colored raised circular lesions over left intercrural fold < 1 cm in size, and one skin colored raised circular lesion over right buttock < 1 cm in size. No vulvar lesions noted BIOPSY: Area was cleansed with betadine and anesthetized with 2 mL 1% lidocaine with 1:100,000 epi. 4 mm Rossy punch used to biopsy region. HEMOSTASIS: Obtained with silver nitrate and pressure Procedure Summary: Patient tolerated procedure well. ASSESSMENT: new vulvar lesion PLAN: Specimens labeled and sent to Pathology. Will notify patient of results in 1-2 weeks. Post-procedure instructions reviewed and written material given to the patient. Juju Reilly DO [facility] 04-18-2024 History of Presen t illness Narrative Grey Percher offered: Patient declines. Francisca Cooper is a 69 year old female who presents today for a vulvar biopsy. Indication: new skin lesion. UNIVERSAL PROTOCOL / SAFETY CHECKLIST Procedure to be Performed: Punch Biopsy of inner thigh and perineum Sign In: A Moment of CARE was completed. Personnel directly involved with the procedure wore the appropriate PPE (Personal Protective Equipment). Patient/Surrogate Stated/Verified: PATIENT VERIFIED(optional for EMERGENT procedures): Patient name, Date of , Relevant allergies, and The intended procedure Time Out Communication: Intended patient and procedure match the source documents. Consent documented and matches the intended procedure. Sign Out: SIGN OUT (optional for EMERGENT procedures): All specimen containers correctly labeled. All instruments, equipment, possible retained foreign bodies accounted for. Post-procedure follow-up management communicated and Plan of Care Visit completed when applicable. PROCEDURE NOTE: GROSS LESIONS: Yes, two skin colored raised circular lesions over left intercrural fold < 1 cm in size, and one skin colored raised circular lesion over right buttock < 1 cm in size. No vulvar lesions noted BIOPSY: Area was cleansed with betadine and anesthetized with 2 mL 1% lidocaine with 1:100,000 epi. 4 mm Rossy punch used to biopsy region. HEMOSTASIS: Obtained with silver nitrate and pressure Procedure Summary: Patient tolerated procedure well. ASSESSMENT: new vulvar lesion PLAN: Specimens labeled and sent to Pathology. Will notify patient of results in 1-2 weeks. Post-procedure instructions reviewed and written material given to the patient. Juju Reilly DO documented in this encounter [facility] 03-31-2024 Telephone encounter Note Patient notified. Appointment scheduled. Jolly Loja RN [facility] 03-31-2024 Miscellaneous Notes Patient notified. Appointment scheduled. Jolly Loja RN Left message to call office. Odalis Gold RN I apologize. For a skin punch biopsy of left inner thigh and right perineum Office note from yesterday not completed yet. See PSS note below. Tari Bethea RN Patient called said she was in 03/28 w/ Dr Reilly states she is to schedule something but she does not remember what it was said maybe a biopsy or something but I don't see an order Please advise documented in this encounter [facility] 03-31-2024 Telephone encounter Note Left message to call office. Odalis Gold RN [facility] 03-31-2024 Telephone encounter Note I apologize. For a skin punch biopsy of left inner thigh and right perineum [facility] Work Phone: 03-29-2024 Telephone encounter Note Phoned patient and went over results, notes from Dr Novak with understanding. Patient said thank you, she was almost in tears, she said she will write you a thank you note. When she sits down to start writing she starts crying thinking about her . [facility] 03-29-2024 Miscellaneous Notes Phoned patient and went over results, notes from Dr Novak with understanding. Patient said thank you, she was almost in tears, she said she will write you a thank you note. When she sits down to start writing she starts crying thinking about her . ----- Message from Evita Novak MD sent at 03/29/2024 1:49 PM EDT ----- Luisa Espinosa, Your mammogram result was normal. How are you? Will see you in May. Take care Evita Mcdonough MD documented in this encounter [facility] 03-29-2024 Telephone encounter Note ----- Message from Evita Novak MD sent at 03/29/2024 1:49 PM EDT ----- Luisa Espinosa, Your mammogram result was normal. How are you? Will see you in May. Take care Evita Mcdonough MD [facility] 03-29-2024 Telephone encounter Note Office note from yesterday not completed yet. See PSS note below. Tari Bethea RN [facility] 03-29-2024 Telephone encounter Note Patient called said she was in 03/28 w/ Dr Reilly states she is to schedule something but she does not remember what it was said maybe a biopsy or something but I don't see an order Please advise [facility] Work Phone: 03-28-2024 History of Presen t illness Narrative Grey Percher offered: Patient declines. Francisca is a 69 year old who presents for an annual gynecologic exam with complaints, lesions in groin area . Postmenopausal: Years since early 40s HRT use: No. Last Pap: 01/12/2020 normal HPV: 01/14/2020 negative History of abnormal pap: No Last mammogram: 03/28/2024 pending History of abnormal mammogram: No OB History T0 L0 SAB0 IAB0 Ectopic0 Multiple0 Live Births0 Comment: Patient adopted daughter Denture Processor History LMP: Postmenopausal Age at Menarche: Age at First : Age at Menopause: Denture Processor History Comments: Sexual Activity: Not Currently; Male Contraception: No contraception data on record PAST MEDICAL HISTORY Diagnosis Date Donor, kidney Osteopenia PAST SURGICAL HISTORY Procedure Laterality Date EXC LESION TDN SHTH/JT CAPSL HAND/FNGR Left 10/01/2017 Left thumb excision of digital mucous cyst HERNIA REPAIR W/MESH 07/23/2015 IMPLANT MESH OPN HERNIA RPR/DEBRIDEMENT CLOSURE 07/23/2015 LAPAROSCOPY REPAIR INCISIONAL HERNIA REDUCIBLE 07/23/2015 REMOVAL OF KIDNEY 02/01/2006 REMOVAL OF SKIN LESION 02/06/2016 lipoma upper back REMOVAL SKIN LESION 2.1-3.0 CM scalp in 4th grade S MENISCAL REPAIR OUT/IN Right 2018 TONSILLECTOMY PRIMARY/SECONDARY <AGE 12 Tonsillectomy FAMILY HISTORY Problem Relation Age of Onset Cancer Mother leukemia Stroke Father Cancer Brother smoker SOCIAL HISTORY Social History Tobacco Use Smoking status: Never Smokeless tobacco: Never Vaping Use Vaping status: Never Used Substance Use Topics Alcohol use: Yes Alcohol/week: 7.0 standard drinks of alcohol Types: 7 Glasses of Wine (5oz) per week Drug use: No REVIEW OF SYSTEMS Abdomen: No abdominal pain, nausea, vomiting, diarrhea, or constipation. No bloating, early satiety, indigestion, or increased flatulence. Bladder: No dysuria, gross hematuria, urinary frequency, urinary urgency, or incontinence Breast: No breast lumps, nipple d/c, overlying skin changes, redness or skin retraction Allergies and current medication updated:Yes SENSITIVE EXAM: The sensitive examination was discussed with the Patient or Patient's Authorized Bow Tacker. As applicable, any other physician, advance practice provider, medical student, or other health professional student that will be observing or involved in the sensitive examination for educational or training purposes was discussed with the Patient or Authorized Bow Tacker. The Patient or Authorized Bow Tacker has agreed to proceed with the sensitive examination. (Sensitive examination includes inspection and/or palpation of the breasts, pelvis, prostate and anorectal regions). EXAM: There were no vitals taken for this visit. GENERAL: pleasant, female in no apparent distress HEENT: Normocephalic and atraumatic NECK: full range of motion BREAST: soft, non-tender, symmetric, no dominant mass, normal nipple-areolar complex, no lymphadenopathy, and no nipple discharge CHEST: Normal inspiratory effort ABDOMEN: soft, non-tender, and no masses PELVIC: external genitalia normal, normal Bartholin's glands, urethra, [place]'s glands, no vulvar lesions, no cervical lesions, good vaginal support, physiologic discharge present, normal appearing perineal body and perianal region, there are 2 soft raised lesions < 1 cm in size over left inner thigh and 1 over right buttock BIMANUAL: uterus normal size, shape and consistency, no adnexal masses, and non-tender RECTOVAGINAL: deferred. NEURO: exam grossly non-focal EXTREMITIES: normal ASSESSMENT/PLAN: 1) Health maintenance: Pap/HPV up to date. Mammogram up to date Nutrition, exercise and routine health maintenance exams reviewed. Colon cancer screening: followed by PCP TSH/lipids/glucose: followed by PCP BMD: followed by PCP Follow up for skin punch biopsy 2) Follow up one year or sooner as needed Juju Reilly DO documented in this encounter [facility] 03-28-2024 History of Presen t illness Narrative Radiology Service Progress Note PATIENT NAME: Francisac Cooper DATE OF SERVICE: March 28, 2024 TIME: 7:32 AM PATIENT IDENTITY VERIFICATION COMPLETED USING TWO (2) IDENTIFIERS: Name and Date of confirmed by patient verbally. FALL SCREENING: Has the patient had 2 falls in the last year or 1 fall with injury or currently using an Ambulatory Assistive Device (Walker, Cane, Wheelchair, Crutches, etc.)? No PATIENT GENDER DATA: Female. status: : No status: NO. PATIENT RELEVANT IMPLANT DATA REVIEWED: Not Applicable PATIENT PRESENTS WITH AN IMPLANTABLE OR ATTACHED DEPENDENCY DIRECTOR: No RADIOLOGY DEPARTMENT: Mammography PERIPHERAL IV DATA: Not applicable SIGNED BY: Clara Jenkins March 28, 2024 7:32 AM documented in this encounter [facility] 06-03-2023 Miscellaneous Notes Patient notified, patient will do some research and call office when ready to schedule or send referral locally. As expected. Bone density showing osteoporosis. I would recommend considering an injectable treatment as she has not tolerated bisphosphonates in the past. If so, I will send her to rheumatology to see what may be the best choice for her. Also blood work is all within acceptable ranges except cholesterol levels have increased. At this time, I would recommend continuing a healthy diet and increasing exercise as able. Thank you Tiara Rich APRN.CNP The 10-year ASCVD risk score (Montserrat IGLESIAS, et al., 2019) is: 6.8% Values used to calculate the score: Age: 68 years Sex: Female Is Non- : No Diabetic: No Tobacco smoker: No Systolic Blood Pressure: 120 mmHg Is BP treated: No HDL Cholesterol: 68 mg/dL Total Cholesterol: 232 mg/dL documented in this encounter [facility] 06-01-2023 History of Presen t illness Narrative Radiology Service Progress Note PATIENT NAME: Francisca Cooper DATE OF SERVICE: June 01, 2023 TIME: 1:01 PM PATIENT IDENTITY VERIFICATION COMPLETED USING TWO (2) IDENTIFIERS: Name and Date of confirmed by patient verbally. FALL SCREENING: Has the patient had 2 falls in the last year or 1 fall with injury or currently using an Ambulatory Assistive Device (Walker, Cane, Wheelchair, Crutches, etc.)? No PATIENT GENDER DATA: Female. status: : No status: NO. PATIENT RELEVANT IMPLANT DATA REVIEWED: Not Applicable RADIOLOGY DEPARTMENT: Bone Density PERIPHERAL IV DATA: Not applicable SIGNED BY: RT Corazon(R) June 01, 2023 1:01 PM documented in this encounter [facility] 06-01-2023 History of Presen t illness Narrative Francisca Cooper is a 68 year old female here for a Medicare wellness visit. Has not been seen in a few years Medicare Health Risk Assessment General Health Exercise: Minutes/Day Exercise: Days/Week Alcohol: Daily Use Alcohol: Drinks/Day Alcohol: 6 or more drinks Feel off balance No Concerns: Teeth/Dentures No Concerns: Sexual function No Troubled by feelings None of the above Frequency: Eating healthy diet Nearly every day ADLs requiring help None of the above Safety precautions in home/vehicle Yes Smoke, vape, chews tobacco No Difficulty hearing Yes, I wear a hearing aid Difficulty seeing No Feels her health overall is excellent. Walks every day and using stationary bicycle daily. Will also swim in the summer. Drinks 1 glass of wine nightly. Current Providers Specialists: I have reviewed specialist-related care of the patient in the medical record. ENT: Dr Gruber for hearing and her hearing aides. Optometry: Dr. Cuenca routine eye exam Medical/Family history review Reviewed and updated problem list, medical/surgical/family/social history, medications, and allergies. Opioid use review Opioid Medications (last 90 days) Some values may be hidden. Unless noted otherwise, only the newest values recorded on each date are displayed. Opioid Medications No data to display. Depression screening Depression Screening PHQ-2 Score 06/01/2023 0 Depression screening tool completed and reviewed. Based on score and interview, patient is not at risk for depression. Screening tool discussed with patient, and I recommended no further intervention at this time. Cognitive screening Mini Cog Score: 5 Cognitive screening reviewed and no further action needed (score 3-5) Functional Observation Was the patient's timed Up & Go test unsteady or ? 12 seconds? No Advance Care Planning Surrogate decision maker and/or advance care plan documented Measurements BP 120/82 Pulse 86 Ht 5' 8.701" (1.75m) Wt 147 lb (66.7kg) BMI 21.90 kg/(m^2). Follows with optometry Additional screenings: No results found. Assessment/Plan Medicare annual wellness visit, subsequent (Z00.00) - Counseled on healthy diet and regular exercise - Fall avoidance information provided - Personalized prevention plan provided CC: Patient presents with: Medicare Wellness Exam HPI Francisca Cooper is a 68 year old female who presents today for medicare wellness. End of February noticed her left pinky finger was deformed and painful after repetitive playing of difficult piano piece. Still deformed, does not affect her piano playing, no weakness or redness, only slightly tender with touching. Stays slightly bent and deformed but able to be straightened out. HLD: Declined statin therapy in the past. Denies chest pressure, shortness of breath, or exercise intolerance. Donated kidney to her in the early 1999s. No difficulty or problem. Avoids NSAIDs. Has not had any recent blood work. Denies any change or pain with urination. Osteoporosis: last checked in 2020. Tried Actonel in the s but did not tolerate as she had terrible pain and heartburn. Takes a daily Vitamin D supplement and gets calcium through her diet. No history of fracture. REVIEW OF SYSTEMS General: no fevers, no chills, no night sweats, no recurrent infections, no change in appetite, no change in energy, and no significant changes in weight Respiratory: no cough, no wheezing, no shortness of breath, no hemoptysis Cardiovascular: no chest pain, no chest pressure, no palpitations, and no swelling GI: No nausea, vomiting, or diarrhea : No history of dysuria, frequency or incontinence Psych: PHQ2 is 0 Endocrine: no fatigue, no polyuria, no polyphagia, and no polydipsia Neurologic: No headache, weakness, numbness, tingling, dizziness, memory loss, syncope. PAST MEDICAL HISTORY Diagnosis Date Donor, kidney Osteopenia PAST SURGICAL HISTORY Procedure Laterality Date EXC LESION TDN SHTH/JT CAPSL HAND/FNGR Left 10/01/2017 Left thumb excision of digital mucous cyst HERNIA REPAIR W/MESH 07/23/2015 IMPLANT MESH OPN HERNIA RPR/DEBRIDEMENT CLOSURE 07/23/2015 LAPAROSCOPY REPAIR INCISIONAL HERNIA REDUCIBLE 07/23/2015 REMOVAL OF KIDNEY 02/01/2006 REMOVAL OF SKIN LESION 02/06/2016 lipoma upper back REMOVAL SKIN LESION 2.1-3.0 CM scalp in 4th grade S MENISCAL REPAIR OUT/IN Right 2019 TONSILLECTOMY PRIMARY/SECONDARY <AGE 12 Tonsillectomy ALLERGIES Ibuprofen MEDICATIONS cholecalciferol, vitamin D3, (VITAMIN D3 ORAL) Take by mouth. vitamin B complex (B COMPLEX ORAL) Take by mouth. FAMILY HISTORY Problem Relation Age of Onset Cancer Mother leukemia Stroke Father Cancer Brother smoker Social History Tobacco Use Smoking status: Never Smokeless tobacco: Never Vaping Use Vaping Use: Never used Substance Use Topics Alcohol use: Yes Alcohol/week: 7.0 standard drinks of alcohol Types: 7 Glasses of Wine (5oz) per week Drug use: No PHYSICAL EXAM BP 120/82 (BP Site: Left Arm, BP Position: Sitting, BP Cuff Size: Regular Adult) Pulse 86 Ht 174.5 cm (5' 8.7") Wt 66.7 kg (147 lb) BMI 21.90 kg/m General Appearance: well appearing, in no acute distress, alert Pysch: mood and affect broad and appropriate Skin: Skin color, texture, turgor normal for age; Eyes: conjunctiva pink and moist, no icterus, sclera white, non-injected Lungs: Lungs clear to auscultation. No wheezing, rhonchi, rales. Heart: RRR without murmur, gallop, or rubs. No ectopy Health maintenance reviewed with patient: Advance Directive Discussion Never done Depression Assessment Never done RSV Vaccine(1 - 1-dose 60+ series) due on 06/01/2024 Hepatitis C Screening due on 06/01/2024 Shingrix Vaccine(2 of 3) due on 06/01/2024 Covid-19 Vaccine( season) due on 06/01/2024 Mammogram Screening due on 03/27/2024 Diabetes Screening due on 02/19/2025 Lipid Screening due on 02/19/2027 Colorectal Cancer Screening due on 02/17/2028 DTaP,Tdap,Td Vaccine(2 - Td or Tdap) due on 10/22/2031 Bone Density Screening Completed Influenza Vaccine Completed Pneumococcal Vaccine: 65+ Completed Pap Testing Discontinued DATA REVIEWED: No new labs ASSESSMENT/PLAN: 1. Medicare annual wellness visit, subsequent - ICD9: V70.0, ICD10: Z00.00 (primary diagnosis) - Counseled on healthy diet and regular exercise - Calcium intake with supplements or by diet of 1000 mg/day for under 50, 8875-9636 mg/day for 50+ - Bone mineral density ordered - Counseled patient on limiting alcohol intake to 1 drink per day - Depression screening tool completed and reviewed with patient. Based on score and interview, patient is not at risk for depression and recommended no further intervention at this time. - Follow up for annual exam in one year - LIPID PANEL BASIC - CBC - COMP METABOLIC PANEL 2. Osteoporosis without current pathological fracture, unspecified osteoporosis type - ICD9: 733.00, ICD10: M81.0 - Reviewed the need for Calcium and Vitamin D supplements and weight bearing exercise as tolerated - will re-evaluate. Does not tolerate bisphosphonate but if any worsening patient would continue and injectable medication. - COMP METABOLIC PANEL - VITAMIN D 25 HYDROXY - PHOSPHORUS INORGANIC - DXA-AXIAL SKELETON - BD DXA TRABECULAR BONE SCORE (TBS) 3. Donor, kidney - ICD9: V59.4, ICD10: Z52.4 - stable but kidney function needs evaluated at least yearly - CBC - COMP METABOLIC PANEL 4. Hyperlipidemia, unspecified hyperlipidemia type - ICD9: 272.4, ICD10: E78.5 - Control undetermined, due for labs - Counseled on healthy diet and regular exercise - LIPID PANEL BASIC - COMP METABOLIC PANEL Prescription instructions reviewed with patient as applicable. Potential red flag symptoms discussed with the patient. Reviewed appropriate action plan to take if red flag symptoms occur. Patient agreeable to treatment plan. Tiara Rich APRN.CNP documented in this encounter [facility] 06-01-2023 Instructions Tiara Rich APRN.CNP - 06/01/2023 11:35 AM EST Diclofenac or voltaren gel. Screening schedule The following prevention plan is recommended: Hepatitis C Screening Never done RSV Vaccine(1 - 1-dose 60+ series) Never done Shingrix Vaccine(2 of 3) due on 09/06/2015 Advance Directive Discussion Never done Depression Assessment Never done Covid-19 Vaccine(2022-24 season) due on 02/27/2023 WHAT YOU CAN DO TO PREVENT FALLS Many falls can be prevented. By making some changes, you can lower your chances of falling. Four things YOU can do to prevent falls for you* and your caregiver 1. Begin a regular exercise program Exercise is one of the most important ways to lower your chances of falling. It makes you stronger and helps you feel better. Exercises that improve balance and coordination (like Anjel Chi) are the most helpful. Lack of exercise leads to weakness and increases your chances of falling. Ask your doctor or health care provider about the best type of exercise program for you. 2. Have your health care provider review your medicines Have your doctor or pharmacist review all the medicines you take, even [id number] medicines. As you get older, the way medicines work in your body can change. Some medicines, or combinations of medicines, can make you sleepy or dizzy and can cause you to fall. 3. Have your vision checked Have your eyes checked by an eye doctor at least once a year. You may be wearing the wrong glasses or have a condition like glaucoma or cataracts that limits your vision. Poor vision can increase your chances of falling. 4. Make your home safer About half of all falls happen at home. To make your home safer: Remove things you can trip over (like papers, books, clothes, and shoes) from stairs and places where you walk. Remove small throw rugs or use double-sided tape to keep the rugs from slipping. Keep items you use often in cabinets you can reach easily without using a step stool. Have grab bars put in next to your toilet and in the tub or shower. Use non-slip mats in the bathtub and on shower floors. Improve the lighting in your home. As you get older, you need brighter lights to see well. Hang light-weight curtains or shades to reduce glare. Have handrails and lights put in on all staircases. Wear shoes both inside and outside the house. Avoid going barefoot or wearing slippers. For more information, contact: Centers for Disease Control and Prevention www.cdc.gov/injury * This information may not apply if you have certain medical conditions. documented in this encounter [facility] 04-15-2023 History of Presen t illness Narrative Patient given flu shot IM in the left deltoid. Patient tolerated injection well. Lot#: [id number] Exp date: 12/27/2023 Velma Clarke Ma documented in this encounter [facility] 03-30-2023 Miscellaneous Notes March 30, 2023 PID: [id number] Francisca Cooper [address] [address] Dear Ms. Aikenjosh, We are pleased to inform you that the results of your recent breast imaging exam on 03/27/2023 are normal. Early detection of cancer is very important. We also understand recommendations regarding breast cancer screening are controversial. Please discuss with your primary care provider which strategy is best for you and whether a mammogram is right for you. Your imaging studies and report will be kept on file at [facility] as part of your permanent medical record and are available for your continuing care. Thank you for allowing us to help in meeting your health care needs. Sincerely, Dr. Wylie Interpreting Radiologist [facility] (Normal over 40) documented in this encounter [facility] 03-27-2023 History of Presen t illness Narrative Radiology Service Progress Note PATIENT NAME: Francisca Cooper DATE OF SERVICE: March 27, 2023 TIME: 7:33 AM PATIENT IDENTITY VERIFICATION COMPLETED USING TWO (2) IDENTIFIERS: Name and Date of confirmed by patient verbally. FALL SCREENING: Has the patient had 2 falls in the last year or 1 fall with injury or currently using an Ambulatory Assistive Device (Walker, Cane, Wheelchair, Crutches, etc.)? No PATIENT GENDER DATA: Female. status: : No status: NO. PATIENT RELEVANT IMPLANT DATA REVIEWED: Not Applicable RADIOLOGY DEPARTMENT: Mammography PERIPHERAL IV DATA: Not applicable SIGNED BY: Naga Garzao Tarun March 27, 2023 7:33 AM documented in this encounter [facility] 02-19-2023 Miscellaneous Notes Pt is scheduled for a mammogram on 03/27/23. Current order will before that date. Please place new order. documented in this encounter [facility] 02-19-2022 Miscellaneous Notes my chart message sent to patient that med in her chart states not being taken. Parris Zimmerman LPN documented in this encounter [facility] 02-18-2022 Miscellaneous Notes February 18, 2022 PID: [id number] Francisca Cooper [address] [address] Dear Kenneth, We are pleased to inform you that the results of your recent breast imaging exam on 02/17/2022 are normal. Early detection of cancer is very important. We also understand recommendations regarding breast cancer screening are controversial. Please discuss with your primary care provider which strategy is best for you and whether a mammogram is right for you. Your imaging studies and report will be kept on file at [facility] as part of your permanent medical record and are available for your continuing care. Thank you for allowing us to help in meeting your health care needs. Sincerely, Dr. Lozano Interpreting Radiologist [facility] (Normal over 40) documented in this encounter [facility] 02-17-2022 History of Presen t illness Narrative Radiology Service Progress Note PATIENT NAME: Francisca Cooper DATE OF SERVICE: February 17, 2022 TIME: 2:38 PM PATIENT IDENTITY VERIFICATION COMPLETED USING TWO (2) IDENTIFIERS: Name and Date of confirmed by patient verbally. FALL SCREENING: Has the patient had 2 falls in the last year or 1 fall with injury or currently using an Ambulatory Assistive Device (Walker, Cane, Wheelchair, Crutches, etc.)? No PATIENT GENDER DATA: Female. status: : No status: NO. PATIENT RELEVANT IMPLANT DATA REVIEWED: Not Applicable RADIOLOGY DEPARTMENT: Mammography PERIPHERAL IV DATA: Not applicable SIGNED BY: Naga JenkinsMeterHero February 17, 2022 2:38 PM documented in this encounter [facility] 02-17-2022 History of Presen t illness Narrative Grey Percher offered: Patient declines. Francisca is a 67 year old who presents for an annual gynecologic exam without complaints. Postmenopausal: Yes HRT use: No. Last Pap: 01/12/2020 normal HPV: 01/14/2020 negative History of abnormal pap: No Last mammogram: 2020 normal History of abnormal mammogram: No Sexually active: No OB History T0 L0 SAB0 IAB0 Ectopic0 Multiple0 Live Births0 Comment: Patient adopted daughter Denture Processor History LMP: Postmenopausal Age at Menarche: Age at First : Age at Menopause: Denture Processor History Comments: Sexual Activity: Yes; Male Contraception: No contraception data on record PAST MEDICAL HISTORY Diagnosis Date Donor, kidney Osteopenia PAST SURGICAL HISTORY Procedure Laterality Date EXC LESION TDN SHTH/JT CAPSL HAND/FNGR Left 10/01/2017 Left thumb excision of digital mucous cyst HERNIA REPAIR W/MESH 07/23/15 IMPLANT MESH OPN HERNIA RPR/DEBRIDEMENT CLOSURE 07/23/2015 LAPAROSCOPY REPAIR INCISIONAL HERNIA REDUCIBLE 07/23/2015 REMOVAL OF KIDNEY 02/01/2006 REMOVAL OF SKIN LESION 02/06/16 lipoma upper back REMOVAL SKIN LESION 2.1-3.0 CM scalp in 4th grade TONSILLECTOMY PRIMARY/SECONDARY <AGE 12 Tonsillectomy FAMILY HISTORY Problem Relation Age of Onset Cancer Mother leukemia Stroke Father Cancer Brother smoker SOCIAL HISTORY Social History Tobacco Use Smoking status: Never Smokeless tobacco: Never Vaping Use Vaping Use: Never used Substance Use Topics Alcohol use: Yes Alcohol/week: 17.5 standard drinks Types: 7 Glasses of Wine (5oz) per week Drug use: No REVIEW OF SYSTEMS Abdomen: No abdominal pain, nausea, vomiting, diarrhea, or constipation. No bloating, early satiety, indigestion, or increased flatulence. Bladder: No dysuria, gross hematuria, urinary frequency, urinary urgency, or incontinence Breast: No breast lumps, nipple d/c, overlying skin changes, redness or skin retraction Allergies and current medication updated:Yes EXAM: There were no vitals taken for this visit. GENERAL: pleasant, female in no apparent distress HEENT: Normocephalic, atraumatic, mucus membranes moist, and no lesions NECK: Supple, full range of motion, no adenopathy, and thyroid normal DERMATOLOGY: Normal, without lesions, non-icteric, and non-hirsute BREAST: soft, non-tender, symmetric, no dominant mass, normal nipple-areolar complex, no lymphadenopathy, and no nipple discharge CHEST: Normal inspiratory effort ABDOMEN: soft, non-tender, and no masses PELVIC: external genitalia atrophic, normal Bartholin's glands, urethra, [place]'s glands, no vulvar lesions, no cervical lesions, good vaginal support, physiologic discharge present, normal appearing perineal body and perianal region BIMANUAL: uterus normal size, shape and consistency, no adnexal masses, and non-tender RECTOVAGINAL: deferred. NEURO: exam grossly non-focal EXTREMITIES: normal ASSESSMENT/PLAN: 1) Health maintenance: Pap/HPV up to date. Mammogram ordered Nutrition, exercise and routine health maintenance exams reviewed. Colon cancer screening: up to date with screening BMD: followed by PCP 2) Follow up one year or sooner as needed Juju Reilly DO documented in this encounter [facility] 10-30-2021 History of Presen t illness Narrative Patient presents with: Suture Removal: suture removal right hand placed by [facility] 10/21 HPI: Patient presents for suture removal of the right hand. 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 Sutures placed at [facility] ER 10/21/21. Denies bleeding, drainage, dehiscence, erythema, or signs of infection. PAST MEDICAL HISTORY Diagnosis Date Donor, kidney Osteopenia MEDICATIONS: atorvastatin (LIPITOR) 20 mg tablet Take 1 tablet by mouth daily at bedtime. For cholesterol. ALLERGIES: ALLERGIES Allergen Reactions Ibuprofen Contraindication-Medical Surgical VITALS: BP 112/80 Pulse 91 Temp 36.4 C (97.5 F) (Tympanic) Resp 18 Wt 64.5 kg (142 lb 3.2 oz) SpO2 99% BMI 21.00 kg/m PE: Pleasant, in no acute distress. Hand: Right palmar 3rd finger MCP joint. The wound is well healed without signs of infection. The 3 simple interrupted sutures are removed. Wound edges are well approximated. ASSESSMENT/PLAN: 1. Laceration of right middle finger without foreign body without damage to nail, initial encounter - ICD9: 883.0, ICD10: S61.212A Neel Stephen MD documented in this encounter [facility] 10-21-2021 Hospital Discharg e instructions Additional Instructions Keep area clean and dry. He can get wet but do not soak in water. Dry thoroughly. Apply antibiotic ointment daily. Suture removal in 7 to 10 days and I would go 10 days. Watch for any signs of infection of seen return. [facility] Work Phone: 02-09-2018 History of Past i llness Narrative Problem Noted Date Resolved Date Encounter for screening for malignant neoplasm o f colon 02/09/2018 01/10/2020 Overview: Added automatically from request for surgery [id number] Syncope 08/13/2016 01/10/2020 Diarrhea of presumed infectious origin 7 01/10/2020 Dehydration 08/13/2016 01/10/2020 documented as of this encounter (statuses as of 10/30/2021) [facility] History of Past illness Narrative* Problem Noted Date Resolved Date Encounter for screening for malignant neoplasm o f colon 02/09/2018 01/10/2020 Overview: Added automatically from request for surgery [id number] Syncope 08/13/2016 01/10/2020 Diarrhea of presumed infectious origin 7 01/10/2020 Dehydration 08/13/2016 01/10/2020 documented as of this encounter (statuses as of 02/10/2022) [facility] History of Past illness Narrative* Problem Noted Date Resolved Date Encounter for screening for malignant neoplasm o f colon 02/09/2018 01/10/2020 Overview: Added automatically from request for surgery [id number] Syncope 08/13/2016 01/10/2020 Diarrhea of presumed infectious origin 7 01/10/2020 Dehydration 08/13/2016 01/10/2020 documented as of this encounter (statuses as of 02/17/2022) [facility] History of Past illness Narrative* Problem Noted Date Resolved Date Encounter for screening for malignant neoplasm o f colon 02/09/2018 01/10/2020 Overview: Added automatically from request for surgery [id number] Syncope 08/13/2016 01/10/2020 Diarrhea of presumed infectious origin 7 01/10/2020 Dehydration 08/13/2016 01/10/2020 documented as of this encounter (statuses as of 02/18/2022) [facility] History of Past illness Narrative* Problem Noted Date Resolved Date Encounter for screening for malignant neoplasm o f colon 02/09/2018 01/10/2020 Overview: Added automatically from request for surgery [id number] Syncope 08/13/2016 01/10/2020 Diarrhea of presumed infectious origin 7 01/10/2020 Dehydration 08/13/2016 01/10/2020 documented as of this encounter (statuses as of 02/19/2022) [facility] History of Past illness Narrative* Problem Noted Date Resolved Date Encounter for screening for malignant neoplasm o f colon 02/09/2018 01/10/2020 Overview: Added automatically from request for surgery [id number] Syncope 08/13/2016 01/10/2020 Diarrhea of presumed infectious origin 7 01/10/2020 Dehydration 08/13/2016 01/10/2020 documented as of this encounter (statuses as of 02/20/2022) [place] [address]-14-2018 History of Past illness Narrative* Problem Noted Date Resolved Date Encounter for screening for malignant neoplasm o f colon 02/09/2018 01/10/2020 Overview: Added automatically from request for surgery [id number] Syncope 08/13/2016 01/10/2020 Diarrhea of presumed infectious origin 7 01/10/2020 Dehydration 08/13/2016 01/10/2020 documented as of this encounter (statuses as of 12/15/2022) [facility] History of Past illness Narrative* Problem Noted Date Diagnosed Date Resolved Date Encounter for screening for malignant neoplasm of colon 02/09/2018 01/10/2020 Overview: Added automatically from request for surgery [id number] Syncope 08/13/2016 01/10/2020 Diarrhea of presumed infectious origin 08/13/2016 01/10/2020 Dehydration 08/13/2016 01/10/2020 documented as of this encounter (statuses as of 02/20/2023) [place] [address]-14-2018 History of Past illness Narrative* Problem Noted Date Diagnosed Date Resolved Date Encounter for screening for malignant neoplasm of colon 02/09/2018 01/10/2020 Overview: Added automatically from request for surgery [id number] Syncope 08/13/2016 01/10/2020 Diarrhea of presumed infectious origin 08/13/2016 01/10/2020 Dehydration 08/13/2016 01/10/2020 documented as of this encounter (statuses as of 04/02/2023) [place] [address]-14-2018 History of Past illness Narrative* Problem Noted Date Diagnosed Date Resolved Date Encounter for screening for malignant neoplasm of colon 02/09/2018 01/10/2020 Overview: Added automatically from request for surgery [id number] Syncope 08/13/2016 01/10/2020 Diarrhea of presumed infectious origin 08/13/2016 01/10/2020 Dehydration 08/13/2016 01/10/2020 documented as of this encounter (statuses as of 04/15/2023) [place] [address]-14-2018 History of Past illness Narrative* Problem Noted Date Diagnosed Date Resolved Date Encounter for screening for malignant neoplasm of colon 02/09/2018 01/10/2020 Overview: Added automatically from request for surgery [id number] Syncope 08/13/2016 01/10/2020 Diarrhea of presumed infectious origin 08/13/2016 01/10/2020 Dehydration 08/13/2016 01/10/2020 documented as of this encounter (statuses as of 05/03/2023) [place] [address]-14-2018 History of Past illness Narrative* Problem Noted Date Diagnosed Date Resolved Date Encounter for screening for malignant neoplasm of colon 02/09/2018 01/10/2020 Overview: Added automatically from request for surgery [id number] Syncope 08/13/2016 01/10/2020 Diarrhea of presumed infectious origin 08/13/2016 01/10/2020 Dehydration 08/13/2016 01/10/2020 documented as of this encounter (statuses as of 06/02/2023) [place] [address]-14-2018 History of Past illness Narrative* Problem Noted Date Diagnosed Date Resolved Date Encounter for screening for malignant neoplasm of colon 02/09/2018 01/10/2020 Overview: Added automatically from request for surgery [id number] Syncope 08/13/2016 01/10/2020 Diarrhea of presumed infectious origin 08/13/2016 01/10/2020 Dehydration 08/13/2016 01/10/2020 documented as of this encounter (statuses as of 06/02/2023) [place] [address]-14-2018 History of Past illness Narrative* Problem Noted Date Diagnosed Date Resolved Date Encounter for screening for malignant neoplasm of colon 02/09/2018 01/10/2020 Overview: Added automatically from request for surgery [id number] Syncope 08/13/2016 01/10/2020 Diarrhea of presumed infectious origin 08/13/2016 01/10/2020 Dehydration 08/13/2016 01/10/2020 documented as of this encounter (statuses as of 06/03/2023) [facility] noteNo assessment information availableWAdena [facility] Work Phone: Evaluation note* Diagnosis Laceration of right middle finger without foreign body without damage to nail, initial encounter- Primary [facility] Diagnosis Encounter for screening mammogram for breast cancer [facility] Diagnosis Encounter for screening mammogram for breast cancer- Primary Encounter for gynecological examination (general) (routine) without abnormal findings Well woman exam Routine general medical examination at a health care facility Other hyperlipidemia [facility] Diagnosis Encounter for screening mammogram for breast cancer [facility] Diagnosis Encounter for screening mammogram for breast cancer- Primary [facility] Diagnosis Need for influenza vaccination- Primary Need for prophylactic vaccination and inoculation against influenza [facility] Diagnosis Encounter for screening mammogram for breast cancer [facility] Diagnosis Medicare annual wellness visit, subsequent- Primary Routine general medical examination at a health care facility Osteoporosis without current pathological fracture, unspecified osteoporosis type Donor, kidney Kidney donor Hyperlipidemia, unspecified hyperlipidemia type [facility] Diagnosis Osteoporosis without current pathological fracture, unspecified osteoporosis type [facility] Diagnosis Encounter for gynecological examination (general) (routine) without abnormal findings- Primary Encounter for screening mammogram for breast cancer Dense breast tissue on mammogram, unspecified type [facility]* Diagnosis Skin lesion- Primary Unspecified disorder of skin and subcutaneous tissue [facility] Diagnosis Medicare annual wellness visit, subsequent- Primary Routine general medical examination at a health care facility Vitamin B12 deficiency Other B-complex deficiencies Hyperlipidemia, mixed Mixed hyperlipidemia Prediabetes Other abnormal glucose Vitamin D deficiency Unspecified vitamin D deficiency Osteoporosis, unspecified osteoporosis type, unspecified pathological fracture presence [facility] Diagnosis Prediabetes- Primary Other abnormal glucose Hyperlipidemia, mixed Mixed hyperlipidemia Osteoporosis without current pathological fracture, unspecified osteoporosis type [facility]* Diagnosis Other osteoporosis, unspecified pathological fracture presence- Primary Dupuytren's contracture Contracture of palmar fascia Encounter for screening mammogram for malignant neoplasm of breast Other screening mammogram Screening for depression Encounter for screening examination for other mental health and behavioral disorders Special screening examination for viral disease Special screening examination for unspecified viral disease documented in this encounter [facility] for referral (narrative)* Diagnostic Procedure Only (Routine) - Authorized Specialty Diagnoses / Procedures Referred By Josue han Referred To Contact [facility] Diagnoses Encounter for screening mammogram for breast cancer Procedures MICHELLE SCREENING SCREENING MAMMOGRAPHY BI 2-VIEW BREAST INC Evita Manzo MD [address] [place] [address] [facility] [address] [place] [address] Referral ID Status Reason Start Date Expiration Date Visits Requested Visits Authorized [id number] Authorized Auto-Generat ed Referral 02/05/2022 03/07/2023 1 1 T [facility] for referral (narrative)* Diagnostic Procedure Only (Routine) - Closed Specialty Diagnoses / Procedures Referred By Contac t Referred To Contact [facility] Diagnoses Encounter for screening mammogram for breast cancer Procedures MICHELLE SCREENING SCREENING MAMMOGRAPHY BI 2-VIEW BREAST INC Juju Gonzalez MD [address] [place] [address] [facility] [address] [place] [address] Referral ID Status Reason Start Date Expiration Date V isits Requested Visits Authorized [id number] Closed Auto-Generate d Referral 02/17/2022 03/19/2023 1 1 [facility] for referral (narrative)* Diagnostic Procedure Only (Routine) - Closed Specialty Diagnoses / Procedures Referred By Josue han Referred To Contact [facility] Diagnoses Encounter for screening mammogram for breast cancer Procedures MICHELLE SCREENING SCREENING MAMMOGRAPHY BI 2-VIEW BREAST INC Juju Gonzalez MD [address] [place] [address] [facility] [address] [place] [address] Referral ID Status Reason Start Date Expiration Date V isits Requested Visits Authorized [id number] Closed Auto-Generate d Referral 02/17/2022 03/19/2023 1 1 T [facility] for referral (narrative)* Diagnostic Procedure Only (Routine) - Pending Review Specialty Diagnoses / Procedures Referred By Contac t Referred To Contact [facility] Diagnoses Encounter for screening mammogram for breast cancer Procedures MICHELLE SCREENING SCREENING MAMMOGRAPHY BI 2-VIEW BREAST INC CAD Tiara Rich APRN.OFFICER CAPTAIN [address] [place] [address] [facility] [address] [place] [address] Referral ID Status Reason Start Date Expiration Date Visits Requested Visits Authorized [id number] Pending Review Auto-Generat ed Referral 02/20/2023 03/21/2024 1 1 [facility] for referral (narrative)* Diagnostic Procedure Only (Routine) - Closed Specialty Diagnoses / Procedures Referred By Contac t Referred To Contact [facility] Diagnoses Encounter for screening mammogram for breast cancer Procedures MICHELLE SCREENING SCREENING MAMMOGRAPHY BI 2-VIEW BREAST INC CAD Tiara Rich APRN.CNP [address] [place] [address] [facility] [address] [place] [address] Referral ID Status Reason Start Date Expiration Date V isits Requested Visits Authorized [id number] Closed Auto-Generate d Referral 02/20/2023 03/21/2024 1 1 [facility] for referral (narrative)* Diagnostic Procedure Only (Routine) - New Request Specialty Diagnoses / Procedures Referred By Josue han Referred To Contact [facility] Diagnoses Encounter for screening mammogram for breast cancer Dense breast tissue on mammogram, unspecified type Procedures MICHELLE SCREENING W TANIKA SCREENING DIGITAL BREAST TOMOSYNTHESIS BI SCREENING MAMMOGRAPHY BI 2-VIEW BREAST INC Juju Gonzalez MD [address] [place] [address] [facility] [address] [place] [address] Referral ID Status Reason Start Date Expiration Date Visits Requested Visits Authorized [id number] New Request Auto-Generat ed Referral 03/31/2024 04/30/2025 1 1 [facility] for visit Narrative* Diagnostic Procedure Only (Routine) - Closed Specialty Diagnoses / Procedures Referred By Josue han Referred To Contact [facility] Diagnoses Encounter for screening mammogram for breast cancer Procedures MICHELLE SCREENING SCREENING MAMMOGRAPHY BI 2-VIEW BREAST INC Juju Gonzalez MD [address] [place] [address] [facility] [address] [place] [address] Referral ID Status Reason Start Date Expiration Date V isits Requested Visits Authorized [id number] Closed Auto-Generate d Referral 02/17/2022 03/19/2023 1 1 [facility] for visit Narrative* Diagnostic Procedure Only (Routine) - Closed Specialty Diagnoses / Procedures Referred By Contac t Referred To Contact [facility] Diagnoses Encounter for screening mammogram for breast cancer Procedures MICHELLE SCREENING SCREENING MAMMOGRAPHY BI 2-VIEW BREAST INC CAD Tiara Rich APRN.FEDE [address] [place] [address] [facility] [address] [place] [address] Referral ID Status Reason Start Date Expiration Date V isits Requested Visits Authorized [id number] Closed Auto-Generate d Referral 02/20/2023 03/21/2024 1 1 [facility] for visit Narrative* Diagnostic Procedure Only (Routine) - Closed Specialty Diagnoses / Procedures Referred By Contac t Referred To Contact [facility] Diagnoses Visit for screening mammogram Procedures MICHELLE SCREENING SCREENING MAMMOGRAPHY BI 2-VIEW BREAST INC CAD Evita Novak MD [address] [place] [address] [facility] [address] [place] [address] Referral ID Status Reason Start Date Expiration Date V isits Requested Visits Authorized [id number] Closed Auto-Generate d Referral 01/13/2024 02/05/2025 1 1 [facility] Summary Purpose Family History No Family History Records Found Relationship Condition Age at Onset Recorded Date/T laura Not Specified Malignant neoplasm Unknown Cerebrovascular accident (CVA) Unknown Advance Directives No Advanced Directives Records Found Advance Directive Response Recorded Date/ Time Advance Directives Yes July 20, 2015 3:12pm Living Will Yes October 21, 2021 7:24pm Power of Receiving Tank Operator Yes October 21 7:24pm Documents on File Type Date Recorded Patient Bow Tacker Expl anation Advance Directive(s) 02/15/2018 1:49 PM Advance Directive(s) 10/01/2017 11:23 AM Advance Directive(s) 12/15/2016 12:46 PM Advance Directive(s) 08/12/2016 10:18 PM Advance Directive(s) 02/06/2016 9:00 AM Documents on File Type Date Recorded Patient Bow Tacker Expl anation Advance Directive(s) 12/15/2016 12:46 PM Documents on File Type Date Recorded Patient Bow Tacker Expl anation Advance Directive(s) 12/15/2016 12:46 PM Chief Complaint and Reason for Visit Chief Complaint LAC RIGHT MIDDLE FIN JIMMY Additional Source Comments INFORMATION SOURCE (unrecogn ized section and content) DATE CREATED AUTHOR 09/13/2020 [facility] DATE CREATED AUTHOR AUTHOR'S ORGANIZ ATION 01/30/2022 [facility] DATE CREATED AUTHOR AUTHOR'S ORGANIZ ATION 04/05/2025 [facility] Goals (unrecognized section and content) Goals may be documented in a n alternate section Source Comments (unrecognize d section and content) In the event this informatio n is protected by the Federal Confidentiality of Alcohol and Drug Abuse Patient Records regulations: The Federal rules restrict any use of the information to criminally investigate or prosecute any alcohol or drug abuse patient.[facility] the event this information is protected by the Federal Confidentiality of Alcohol and Drug Abuse Patient Records regulations: The Federal rules restrict any use of the information to criminally investigate or prosecute any alcohol or drug abuse patient.[facility] the event this information is protected by the Federal Confidentiality of Alcohol and Drug Abuse Patient Records regulations: The Federal rules restrict any use of the information to criminally investigate or prosecute any alcohol or drug abuse patient.[facility] the event this information is protected by the Federal Confidentiality of Alcohol and Drug Abuse Patient Records regulations: The Federal rules restrict any use of the information to criminally investigate or prosecute any alcohol or drug abuse patient.[facility] the event this information is protected by the Federal Confidentiality of Alcohol and Drug Abuse Patient Records regulations: The Federal rules restrict any use of the information to criminally investigate or prosecute any alcohol or drug abuse patient.[facility] the event this information is protected by the Federal Confidentiality of Alcohol and Drug Abuse Patient Records regulations: The Federal rules restrict any use of the information to criminally investigate or prosecute any alcohol or drug abuse patient.[facility] the event this information is protected by the Federal Confidentiality of Alcohol and Drug Abuse Patient Records regulations: The Federal rules restrict any use of the information to criminally investigate or prosecute any alcohol or drug abuse patient.[facility] the event this information is protected by the Federal Confidentiality of Alcohol and Drug Abuse Patient Records regulations: The Federal rules restrict any use of the information to criminally investigate or prosecute any alcohol or drug abuse patient.[facility] the event this information is protected by the Federal Confidentiality of Alcohol and Drug Abuse Patient Records regulations: The Federal rules restrict any use of the information to criminally investigate or prosecute any alcohol or drug abuse patient.[facility] the event this information is protected by the Federal Confidentiality of Alcohol and Drug Abuse Patient Records regulations: The Federal rules restrict any use of the information to criminally investigate or prosecute any alcohol or drug abuse patient.[facility] the event this information is protected by the Federal Confidentiality of Alcohol and Drug Abuse Patient Records regulations: The Federal rules restrict any use of the information to criminally investigate or prosecute any alcohol or drug abuse patient.[facility] the event this information is protected by the Federal Confidentiality of Alcohol and Drug Abuse Patient Records regulations: The Federal rules restrict any use of the information to criminally investigate or prosecute any alcohol or drug abuse patient.[facility] the event this information is protected by the Federal Confidentiality of Alcohol and Drug Abuse Patient Records regulations: The Federal rules restrict any use of the information to criminally investigate or prosecute any alcohol or drug abuse patient.[facility] the event this information is protected by the Federal Confidentiality of Alcohol and Drug Abuse Patient Records regulations: The Federal rules restrict any use of the information to criminally investigate or prosecute any alcohol or drug abuse patient.[facility] the event this information is protected by the Federal Confidentiality of Alcohol and Drug Abuse Patient Records regulations: The Federal rules restrict any use of the information to criminally investigate or prosecute any alcohol or drug abuse patient.[facility] the event this information is protected by the Federal Confidentiality of Alcohol and Drug Abuse Patient Records regulations: The Federal rules restrict any use of the information to criminally investigate or prosecute any alcohol or drug abuse patient.[facility] the event this information is protected by the Federal Confidentiality of Alcohol and Drug Abuse Patient Records regulations: The Federal rules restrict any use of the information to criminally investigate or prosecute any alcohol or drug abuse patient.[facility] the event this information is protected by the Federal Confidentiality of Alcohol and Drug Abuse Patient Records regulations: The Federal rules restrict any use of the information to criminally investigate or prosecute any alcohol or drug abuse patient.[facility] the event this information is protected by the Federal Confidentiality of Alcohol and Drug Abuse Patient Records regulations: The Federal rules restrict any use of the information to criminally investigate or prosecute any alcohol or drug abuse patient.[facility] HospitalIn the event this information is protected by the Federal Confidentiality of Alcohol and Drug Abuse Patient Records regulations: The Federal rules restrict any use of the information to criminally investigate or prosecute any alcohol or drug abuse patient.[facility] HospitalIn the event this information is protected by the Federal Confidentiality of Alcohol and Drug Abuse Patient Records regulations: The Federal rules restrict any use of the information to criminally investigate or prosecute any alcohol or drug abuse patient.[facility] HospitalIn the event this information is protected by the Federal Confidentiality of Alcohol and Drug Abuse Patient Records regulations: The Federal rules restrict any use of the information to criminally investigate or prosecute any alcohol or drug abuse patient.[facility] HospitalIn the event this information is protected by the Federal Confidentiality of Alcohol and Drug Abuse Patient Records regulations: The Federal rules restrict any use of the information to criminally investigate or prosecute any alcohol or drug abuse patient.[facility] Reason for Visit (unrecogniz ed section and content) Reason Comments Suture Removal suture removal right hand placed by [facility] 10/21 Reason Comments Well Woman Reason Comments Orders Reason Onset Date Comments Imm/Inj Flu shot Immunizations 04/15/2023 Flu vaccination Reason Comments Medicare Wellness Exam Reason Comments Results Reason Comments Orders ?Biopsy order? Reason Comments Follow Up Punch biopsy for les ions Reason Onset Date Comments Population Health Navigation Outreach 10/11/2024 Zero HCC List - [facility] Reason Comments Patient Question Appointment Lab Orders Reason Comments F/U 6 Month Care Teams (unrecognized sec tion and content) Cloth Tester Relationship Specialty Start Date End Date Evita Novak MD [address] [place], [place] [id number] PCP - General Internal Medicine 09/09/16 Cloth Tester Relationship Specialty Start Date End Date Evita Novak MD [address] [place], [place] [id number] PCP - General Internal Medicine 09/09/16 Cloth Tester Relationship Specialty Start Date End Date Evita Novak MD [address] [place], [place] [id number] PCP - General Internal Medicine 09/09/16 Cloth Tester Relationship Specialty Start Date End Date Evita Novak MD [address] [facility] [place] [address] PCP - General Internal Medicine 09/09/16 Cloth Tester Relationship Specialty Start Date End Date Evita Novak MD [address] [facility] [place] [address] PCP - General Internal Medicine 09/09/16 Cloth Tester Relationship Specialty Start Date End Date Evita Novak MD [address] [facility] [place] [address] PCP - General Internal Medicine 09/09/16 Cloth Tester Relationship Specialty Start Date End Date Evita Novak MD [address] [facility] [place] [address] PCP - General Internal Medicine 09/09/16 Cloth Tester Relationship Specialty Start Date End Date Evita Novak MD [address] [place] [address] PCP - General Internal Medicine 09/09/16 Cloth Tester Relationship Specialty Start Date End Date Evita Novak MD [address] [place] [address] PCP - General Internal Medicine 09/09/16 Cloth Tester Relationship Specialty Start Date End Date Evita Novak MD [address] [place] [address] PCP - General Internal Medicine 09/09/16 Cloth Tester Relationship Specialty Start Date End Date Evita Novak MD [address] [facility] [place] [address] PCP - General Internal Medicine 09/09/16 Cloth Tester Relationship Specialty Start Date End Date Evita Novak MD [address] [place] [address] PCP - General Internal Medicine 09/09/16 Cloth Tester Relationship Specialty Start Date End Date Evita Novak MD [address] [place] [address] PCP - General Internal Medicine 09/09/16 Cloth Tester Relationship Specialty Start Date End Date Evita Novak MD [address] [place] [address] PCP - General Internal Medicine 09/09/16 Cloth Tester Relationship Specialty Start Date End Date Evita Novak MD [address] [place] [address] PCP - General Internal Medicine 09/09/16 Cloth Tester Relationship Specialty Start Date End Date Evita Novak MD [address] [place] [address] PCP - General Internal Medicine 09/09/16 Zo Sethi PA-C [address] [place] [address] [facility] 06/05/24 Tiara Rich APRN.CNP [address] [place] [address] [facility] 06/05/24 Donna Laughlin PA-C [address] [place] [address] [facility] 06/05/24 Cloth Tester Relationship Specialty Start Date End Date Evita Novak MD [address] [place] [address] PCP - General Internal Medicine 09/09/16 Tiara Rich APRN.OFFICER CAPTAIN [address] [place] [address] [facility] 06/05/24 Cloth Tester Relationship Specialty Start Date End Date Evita Novak MD [address] [facility] [place] [address] PCP - General Internal Medicine 09/09/16 Tiara Rich APRN.OFFICER CAPTAIN [address] [facility] [place] [address] [facility] Internal [facility] 06/05/24 Cloth Tester Relationship Specialty Start Date End Date Evita Novak MD [address] [facility] [place] [address] PCP - General Internal Medicine 09/09/16 Tiara Rich APRN.OFFICER CAPTAIN [address] [facility] [place] [id number] [facility] Internal [facility] 06/05/24 FOR RECORDS PERTAINING TO PATIENTS WHO ARE OR HAVE BEEN ENROLLED IN A CHEMICAL DEPENDENCY/SUBSTANCEABUSE PROGRAM, SOME INFORMATION MAY BE OMITTED. This clinical summary was aggregated from multiple sources. Caution should be exercised in using it in the provision of clinical care. This summary normalizes information from multiple sources, and as a consequence, information in this document may materially change the coding, format and clinical context of patient data. In addition, data may be omitted in some cases. CLINICAL DECISIONS SHOULD BE BASED ON THE PRIMARY CLINICAL RECORDS. [employer] provides no warranty or guarantee of the accuracy or completeness of information in this document.
[2025-05-04 19:09] LABS: Color, Urine Red (Yellow); Glucose, Dipstick Normal (Normal); Ketone-Dipstick 5 mg/dl (Negative); Leukocyte Esterase-Dipstick 100 /ul (Negative); Nitrite-Dipstick Negative (Negative); Occult Blood-Urine 150 /ul (Negative); Protein-Dipstick 500 mg/dl (Negative); Specific Gravity, Urine 1.020 (1.002-1.030); Urine Bilirubin Dipstick Negative (Negative)
[2025-05-04 19:10] VITALS: BP 128/89; PULSE 81; RESP 16; TEMP 36.8; O2SAT 97
[2025-05-04 19:46] LABS: Red Blood Cells-Urine > 100 SEEN /hpf (0-5)
[2025-05-04 19:49] LABS: Squamous Epithelial Cells - UA 0-5 SEEN /hpf (5-10)
[2025-05-04 20:19] VITALS: BP 129/80; PULSE 94; RESP 18; TEMP 36.4; O2SAT 94
== END 2025-05-04 20:20 | disposition home or self-care (01) ==
PROVIDERS: Emergency Provider Emergency Medicine; PCP Internal Medicine; Visit Provider Emergency Medicine
DX: N30.91 Cystitis, unspecified with hematuria (principal)
CPT/HCPCS: 81001; 87086; 87088; 99282